=== PATIENT | female | born 1950 | race Caucasian/White ===

== ENCOUNTER → 2018-01-16 08:59 | Outpatient (CLI) | payer MEDICARE, BC, SELFPAY ==
--- NOTE | 2018-01-16 | DI.CT.S_ITS ---
PROCEDURE: CT CHEST ABD PEL W CON INDICATIONS: SURVEILLENCE COLORECTAL CANCER TECHNIQUE: After the administration of oral and intravenous contrast, 5 mm thick sections acquired from the lung apices to the symphysis. 5 mm coronal and sagittal reformats were performed, with additional 7 mm coronal MIP reformats through the lungs. For radiation dose reduction, the following was used: automated exposure control, adjustment of mA and/or kV according to patient size. COMPARISON: [facility], CT, CHEST/ABD/PEL WITH CONTRAST, 03/09/2013, 10:42. [facility], CT, ABDOMEN/PELVIS WITH CONTRAST, 12/11/2013, 11:21. [facility], CT, CHEST/ABD/PEL WITH CONTRAST, 10/18/2016, 10:35. [facility], CT, ABDOMEN/PELVIS WITH CONTRAST, 11/05/2015, 10:43. FINDINGS: Image quality: Excellent. CHEST: Lungs and pleura: Elevation the right hemidiaphragm is seen. No acute airspace opacities. No pleural effusions or pneumothorax. Central and peripheral airways appear patent and normal in caliber. Mediastinum: Heart size is normal. No pericardial effusion. No mediastinal or hilar adenopathy by size criteria. Thoracic aorta and central pulmonary arteries are normal in size. Esophagus is normal in caliber. No hiatal hernia. Chest wall: No axillary or supraclavicular adenopathy by size criteria. A chronic right rib deformity can again be seen. Thyroid gland is not well-seen. ABDOMEN: Solid organs: Liver is normal in size and enhancement. Gallbladder demonstrates no significant CT abnormality. Biliary system is non dilated. Pancreas enhances normally. Spleen is normal in size and enhancement. No adrenal nodules. Kidneys demonstrate normal size and enhancement, without hydronephrosis. Peritoneum and bowel: There is a rectal anastomotic staple line seen. No findings of local recurrence are seen. Bowel loops demonstrate normal wall thickness and caliber. No free fluid or air. Right lower quadrant postoperative clips are seen, which are attributed to prior appendectomy. A duodenal diverticulum can again be seen, as on series 4 image 35. Nodes and vessels: No retroperitoneal or mesenteric adenopathy by size criteria. Aorta and inferior vena cava are normal in size. Miscellaneous: No ventral hernias. PELVIS: Genitourinary: Bladder wall thickness is normal. This patient is status post hysterectomy. No adnexal masses are seen. Miscellaneous: No inguinal hernias or adenopathy. Bones: No suspicious bony lesions. No vertebral body compression fractures. Age-appropriate bony degenerative changes are seen, particularly affecting the lumbar spine. Mild levoconvex scoliotic curvature is noted. IMPRESSION: Rectal postoperative change, without findings of local recurrence. No findings of metastatic disease are detected. Incidental note is made of: Chronic right rib abnormality Elevation of the right hemidiaphragm Duodenal diverticulum Presumed prior appendectomy Hysterectomy Levoconvex scoliotic curvature Dictated by: Evan Ambriz M.D. on 01/16/2018 at 11:03 Approved by: Evan Ambriz M.D. on 01/16/2018 at 11:10
[2018-01-16 09:36] LABS: Add Manual Diff / Slide Review NO; Basophils Percent Auto 0.7 % (0-2); Eosinophils Percent Auto 3.3 % (2-4); Hematocrit 42.2 % (36-46); Hemoglobin 14.2 g/dL (12.0-16.0); Lymphocytes Percent Auto 25.6 % (25-40); Mean Corpuscular HGB Conc 33.7 % (30-36); Mean Corpuscular Hemoglobin 30.9 PG (26-34); Mean Corpuscular Volume 91.7 fL (80-100); Monocytes Percent Auto 11.9 % (3-14); Neutrophils Absolute Auto 1900 /uL (3000-5900); Neutrophils Percent Auto 58.5 % (50-75); Platelet Count 211 X10^3/uL (150-400); Red Cell Distribution Width 14.3 % (11.6-14.8); White Blood Cell Count 3.2 X10^3/uL (4.5-11.0)
[2018-01-16 09:47] LABS: Alanine Aminotransferase 22 IU/L (9-52); Albumin Globulin Ratio 1.6 (1.0-2.8); Alkaline Phosphatase 46 U/L (38-126); Aspartate Aminotransferase 22 IU/L (14-36); Bilirubin Total 0.6 mg/dL (0.2-1.3); Blood Urea Nitrogen 14 mg/dL (7-17); Calcium 8.8 mg/dL (8.4-10.2); Carbon Dioxide 32 mmol/L (22-32); Chloride 103 mmol/L (98-107); Estimated Glomerular Filt Rate > 60.0 mL/min (>60); Globulin 2.5 g/dL (1.7-4.1); Glucose 99 mg/dL (80-110); HEMOLYSIS < 15 (0-50); Sodium 141 mmol/L (137-145); Total Protein 6.5 g/dL (6.3-8.2)
[2018-01-16 10:18] LABS: Carcinoembryonic Antigen 0.4 ng/mL (0.1-3.0)
== END ==
PROVIDERS: Family Provider Family Medicine; PCP Family Medicine; Visit Provider Specialist
DX: C19 Malignant neoplasm of rectosigmoid junction (principal)
CPT/HCPCS: 36415; 71260; 74177; 80053; 82378; 85025; Q9967

== ENCOUNTER → 2018-07-03 09:49 | Outpatient (CLI) | payer MEDICARE, BC, SELFPAY ==
--- NOTE | 2018-07-03 09:51 | DI.US.S_ITS ---
ULTRASOUND OF LEFT BREAST: 07/03/2018 CLINICAL: Patient returns today to evaluate a density in the left breast. Comparison is made to exams dated: 07/03/2018 mammogram, 09/12/2014 mammogram, 02/07/2007 mammogram, and 07/16/2004 mammogram - [facility]. Color flow and real-time ultrasound of the left breast were performed. [place] scale images of the real-time examination were reviewed. Corresponding to palpable area of concern, there is a 2.9 cm x 2 cm x 2.7 cm taller than wide irregular mass with an indistinct margin in the left breast at 5 o'clock middle depth 8 cm from the nipple. This irregular mass is hypoechoic with an echogenic boundary and posterior acoustic shadowing. Color flow imaging demonstrates that there is vascularity present. No abnormalities were seen sonographically in the left axilla IMPRESSION: HIGHLY SUGGESTIVE OF MALIGNANCY The 2.9 cm x 2 cm x 2.7 cm taller than wide irregular mass in the left breast is highly suggestive of malignancy. A biopsy is recommended. Findings and need for biopsy were discussed with the patient by Dr. Rosen. This exam was interpreted at Station ID: [id number]. Electronically Signed By: Tony Del Toro M.D. aty/:07/04/2018 10:00:02 letter sent: Biopsy Required Ultrasound BI-RADS: 5 Highly suggestive of malignancy
--- NOTE | 2018-07-03 09:51 | DI.MG.S_ITS ---
BILATERAL DIGITAL DIAGNOSTIC MAMMOGRAM 3D/2D: 07/03/2018 CLINICAL: Left breast mass. Comparison is made to exams dated: 09/12/2014 mammogram, 02/07/2007 mammogram, and 07/16/2004 mammogram - [facility]. The tissue of both breasts is predominantly fatty. There is a new 2.4 cm irregular equal density mass with an indistinct margin in the left breast at 5 o'clock middle depth 7 cm from the nipple. This correlates as palpated. There is architectural distortion associated with the mass. No other significant masses, calcifications, or other findings are seen in either breast. IMPRESSION: INCOMPLETE: NEEDS ADDITIONAL IMAGING EVALUATION The new 2.4 cm irregular equal density mass in the left breast is indeterminate. An ultrasound is recommended which is scheduled to immediately follow this examination. This exam was interpreted at Station ID: [id number]. NOTE: For mammograms, a report in lay terms will be sent to the patient. Approximately 15% of breast malignancies will not be visualized mammographically. In the management of a palpable breast mass, a negative mammogram must not discourage biopsy of a clinically suspicious lesion. Electronically Signed By: Tony Del Toro M.D. aty/:07/03/2018 10:47:01 ACR BI-RADS Category 0: Incomplete [id number]
== END ==
PROVIDERS: PCP Family Medicine; Visit Provider Nurse Practitioner Gerontology
DX: R92.8 Other abnormal and inconclusive findings on diagnostic imaging of breast (principal); N63.23 Unspecified lump in the left breast, lower outer quadrant
CPT/HCPCS: 76642; 77066; G0279

== ENCOUNTER → 2018-07-07 13:05 | Outpatient (CLI) | payer MEDICARE, BC, SELFPAY ==
--- NOTE | 2018-07-07 | PATH_ITS ---
[facility] Accession Number: [id number] . 01 Material submitted: . breast - LEFT BREAST . 01 Clinical history: . MASS 3 O'CLOCK 8CM FROM NIPPLE . 02 Diagnosis: Left Breast, Mass 3 o'clock 8 cm from Nipple, Core Needle Biopsies: Invasive ductal carcinoma with the following features: 1. Luisa grade: 2 (poor tubule formation-3, intermediate nuclear pleomorphism-2, intermediate mitotic rate-2). 2. Greatest linear extent: 10 mm. 3. Ductal carcinoma in situ: Focally present, low nuclear grade, solid pattern, without necrosis. 4. Microcalcifications: Not identified. 5. Lymphovascular invasion: Not identified. 6. Prognostic markers: Estrogen receptor: Strongly positive, 100% of cells. Progesterone receptor: Strongly positive, 20% of cells. HER2: Negative (score 1+). [facility] 07/11/2018 1512 Local . 02 Comment: As part of routine quality management nurse, this case was also reviewed by Dr. Godoy and Dr. Bates, who agree with the diagnosis. Dr. Bates called the triage nurse to discuss the results on 07/10/2018 at approximately 11:30 a.m. . . 02 Electronically signed: . Yolanda Vega MD, Pathologist NPI- [id number] . 01 Gross description: . The specimen is received in a formalin-filled container and designated breast core. Sample collection date is listed as 07/07/2018 per container. Collection time is 14:30. The sample is received with a plastic filter. The sample is loose in the container. The specimen consists of multiple fragments of skinner, soft tissue and hemorrhagic material measuring 1.3 x 0.6 x 0.3 cm in aggregate. Total fixation time is 24-48 hours. (MR:[id number]) /FRR 07/08/2018 1251 Local . 02 Microscopic: . Immunohistochemical stains were performed to characterize the cells of interest. All control stains showed appropriate reactivity. . RESULTS: GATA3: Uniformly positive. E-cadherin: Uniformly positive. Estrogen Receptor (SP1) Status: Strongly positive, 100% of cells. Progesterone Receptor (1E2) Status: Strongly positive, 20% of cells. HER2 (4B5): Negative (Score 1+). . Cold Ischemia and Fixation Times: Meets requirements in the latest version of the ASCO/CAP guidelines. Testing performed on Block Number: A1. . TECHNICAL NOTE: The scoring criteria for breast biomarkers by immunohistochemistry is based on the current ASCO/CAP guidelines (Marisol et al, Arch Pathol Lab Med 2010: 134(6): 907-922 / Linda Louise, Arch Pathol Lab Med 2014: 138(2):241-256). Deparaffinized sections of formalin fixed tissue (along with appropriate positive controls) are incubated with the above antibody(s). Using the automated Reese stainer, tissue is incubated with the designated antibody* which is then localized by a non-biotin, dual polymer detection system. The external controls are reviewed for appropriate reactivity and found to be adequate. Results on the target cell population are indicated above. These tests have not been validated on decalcified tissue. * This test was developed and its performance characteristics determined by [employer]. It has not been cleared or approved by the U.S. Food and Drug Administration. The FDA has determined that such clearance or approval is not necessary. This test is used for clinical purposes. It should not be regarded as investigational or for research. . 02 Pathologist provided ICD-10: C50.912 . 02 CPT . 247990, P84355, D66976 Performed at: 01 [facility] [address], [place], [place] [id number] MD Stanislaw Ovalles MD Phone: [phone] Performed at: 02 [facility] [address] [place], [place] [id number] MD Yolanda Vega MD Phone: [phone]
--- NOTE | 2018-07-07 | DI.MG.S_ITS ---
UNILATERAL LEFT DIGITAL DIAGNOSTIC MAMMOGRAM: 07/07/2018 CLINICAL: Left breast mass. Post clip placement. Comparison is made to exams dated: 07/03/2018 mammogram, 09/12/2014 mammogram, and 02/07/2007 mammogram - [facility]. The tissue of left breast is predominantly fatty. There is a marker clip in the appropriate position in the left breast at 3 o'clock middle depth 8 cm from the nipple. There is a biopsy clip associated with the mass. IMPRESSION: POST PROCEDURE MAMMOGRAM FOR MARKER PLACEMENT There was a successful marker clip placement in the left breast middle depth. Follow-up with ACR/ACS guidelines. This exam was interpreted at Station ID: [id number]. NOTE: For mammograms, a report in lay terms will be sent to the patient. Approximately 15% of breast malignancies will not be visualized mammographically. In the management of a palpable breast mass, a negative mammogram must not discourage biopsy of a clinically suspicious lesion. Electronically Signed By: Tony voss/laurence:07/07/2018 18:37:42 ACR BI-RADS Category Post-procedure mammogram for marker placement
--- NOTE | 2018-07-07 13:08 | DI.US.S_ITS ---
ULTRASOUND GUIDED BIOPSY LEFT BREAST USING VACUUM DEVICE WITH MARKING DEVICE INSERTED AND POST DIGITAL MAMMOGRAPHIC IMAGIN07/07/2018 CLINICAL: Left breast mass. PATIENT CONSENT: Risks (minor bleeding, infection, vasovagal reaction and repeat procedure), benefits and alternatives were explained to the patient and written informed consent was obtained. Correlation is made to exams dated: 07/03/2018 ultrasound, 07/03/2018 mammogram, and 09/12/2014 mammogram - [facility]. An ultrasound guided biopsy using real-time ultrasound was performed for the palpable 2.9 cm x 2 cm x 2.7 cm indistinct irregular shaped mass located in the left breast at 3 o'clock middle depth 8 cm from the nipple. The skin was prepped in the usual manner. A 13 gauge biopsy needle was placed adjacent to the abnormality under ultrasound guidance. Once the needle was documented to be in the correct location, five specimens were obtained using the Mammotome biopsy system. A clip was inserted into the biopsy cavity. Post procedure digital mammographic imaging demonstrates the location device at the targeted area. The specimens were sent to the laboratory for pathological analysis. IMPRESSION: ULTRASOUND GUIDED BIOPSY MALIGNANT Ultrasound guided biopsy of the 2.9 cm x 2 cm x 2.7 cm mass in the left breast at 3 o'clock middle depth 8 cm from the nipple was successful. Pathology indicates malignant invasive ductal carcinoma (ID). Pathology results are concordant with imaging findings. This exam was interpreted at Station ID: [id number]. ev Del Cid M.D., M.D./laurence:07/14/2018 10:14:37
== END ==
PROVIDERS: PCP Family Medicine; Visit Provider Nurse Practitioner Gerontology
DX: C50.812 Malignant neoplasm of overlapping sites of left female breast (principal); Z17.0 Estrogen receptor positive status [ER+]
CPT/HCPCS: 19083; 77065; 88305; 88341; 88342

== ENCOUNTER → 2018-08-01 08:07 | Outpatient (CLI) | payer MEDICARE, BC, SELFPAY ==
--- NOTE | 2018-08-01 08:10 | DI.MRI.S_ITS ---
BREAST MRI OF THE LEFT BREAST: 08/01/2018 CLINICAL: Breast cancer. TECHNIQUE: The patient was placed prone in a dedicated breast imaging coil. Precontrast axial STIR and 3D FLASH without fat saturation sequences were obtained. Both before and after bolus injection of contrast, sequential 1-minute axial 3D FLASH with fat saturation sequences for 3 time points, with subtraction images and maximum intensity projections (MIP's) generated. Delayed sagittal FLASH images with fat saturation were also obtained. Computer-aided detection, including computer algorithm analysis of MRI image data for lesion detection and characterization, pharmacokinetic analysis, with further physician review for interpretation, was performed. COMPARISON: Mammograms dated 07/03/2018 and 07/07/2018, and ultrasound dated 07/03/2018. FINDINGS: Image quality: Excellent. There is minimal background parenchymal enhancement. Right breast: The right breast is without suspicious mass, architectural distortion, or non-mass enhancement. No right-sided axillary or internal mammary chain adenopathy. Left breast: Within the left lower outer quadrant at approximately the 3:00-4:00 axis and 7 cm behind the nipple, there is an irregular 3.6 x 3.0 x 2.7 cm mass that correlates with biopsy proven invasive ductal carcinoma. A biopsy marker with associated susceptibility artifact is noted within this mass. There is associated enhancement with type III (washout) kinetics. No other mass lesions identified in the left breast. No suspicious architectural distortion or non-mass enhancement. No left-sided axillary or internal mammary chain adenopathy. Miscellaneous: Visualized portions of the anterior mediastinum, heart, chest, upper abdomen, and lower neck appear unremarkable. IMPRESSION: KNOWN BIOPSY PROVEN MALIGNANCY 1. An enhancing 3.6 cm irregular mass in the lower, outer quadrant of the left breast consistent with biopsy proven malignancy. No other suspicious mass lesions or non-mass enhancement in the left breast. No left-sided axillary or internal mammary adenopathy. 2. No MRI evidence for malignancy in the right breast. No right-sided axillary or internal mammary adenopathy. This exam was interpreted at Station ID: [id number]. Electronically Signed By: Tony Del Toro M.D. aty/:08/01/2018 14:45:37 ACR BI-RADS Category 6: Known biopsy proven malignancy [id number]
== END ==
PROVIDERS: Family Provider Psychiatry & Neurology Psychiatry; PCP Family Medicine; Visit Provider Surgery
DX: C50.512 Malignant neoplasm of lower-outer quadrant of left female breast (principal)
CPT/HCPCS: 77049; A9579

== ENCOUNTER 2018-08-09 06:49 | Day surgery (SDC) | payer MEDICARE, BC, SELFPAY ==
[2018-08-07 11:41] VITALS: BMI 35.7
[2018-08-09] VITALS (10 sets, daily range): BP systolic 113–146; BP diastolic 57–92; PULSE 58–76; RESP 13–21; TEMP 36.2–36.7; O2SAT 94–98; BMI 35.6
--- NOTE | 2018-08-09 | DI.MG.S_ITS ---
UNILATERAL LEFT DIGITAL DIAGNOSTIC MAMMOGRAM POST-NEEDLE BIOPSY: 08/09/2018 CLINICAL: Post wire localization. Comparison is made to exams dated: 07/07/2018 mammogram, 07/03/2018 mammogram, and 09/12/2014 mammogram - [facility]. The tissue of left breast is predominantly fatty. There is a marker clip in the appropriate position in the left breast at 3 o'clock middle depth, and also an adjacent J hook wire placed in the mass by US guidance today. This correlates as palpated and with ultrasound findings. There is a biopsy clip associated with the mass. IMPRESSION: POST PROCEDURE MAMMOGRAM FOR MARKER PLACEMENT There was a successful wire localization placement in the left breast middle depth. This exam was interpreted at Station ID: [id number]. NOTE: For mammograms, a report in lay terms will be sent to the patient. Approximately 15% of breast malignancies will not be visualized mammographically. In the management of a palpable breast mass, a negative mammogram must not discourage biopsy of a clinically suspicious lesion. Electronically Signed By: Matty Rosen M.D. [facility]/:08/09/2018 17:12:10 ACR BI-RADS Category Post-procedure mammogram for marker placement
--- NOTE | 2018-08-09 | DI.MG.S_ITS ---
SPECIMEN: 08/09/2018 CLINICAL: Left breast specimen. Correlation is made to exams dated: 08/01/2018 breast MRI, 08/09/2018 localization, 08/09/2018 mammogram, 07/07/2018 ultrasound biopsy, and 07/07/2018 mammogram - [facility]. The specimen contains the targeted irregular spiculated mass with internal biopsy clip, as well as the partially imaged localizing wire. Spiculations extend to the margins of the specimen. IMPRESSION: SPECIMEN The specimen contains the targeted irregular spiculated mass with internal biopsy clip, as well as the partially imaged localizing wire. Spiculations extend to the margins of the specimen. This exam was interpreted at Station ID: [id number]. Esau Zuniga M.D. ecl/:08/09/2018 14:27:59
--- NOTE | 2018-08-09 | PATH_ITS ---
[facility] Accession Number: [id number] . 01 Material submitted: . PART A: LEFT BREAST SENTINEL NODE PART B: LEFT BREAST MASS AND LEFT AXILLARY TISSUE . 02 Diagnosis: A. Left Breast, [place] Lymph Node, Excision: One sentinel lymph node positive for isolated tumor cells. Please see CAP summary data below. . B Left Breast, Mass and Left Axillary Tissue, Excision: Invasive ductal carcinoma. One of two non-sentinel lymph nodes positive for isolated tumor cells. Please see CAP summary data below. . CAP CANCER CASE SUMMARY, INVASIVE CARCINOMA OF THE BREAST. . Procedure: Excision Specimen Laterality: Left . Tumor Site: 3 o'clock Tumor Size: 39 mm. (See comment). Histologic Type: Invasive carcinoma of no special type (ductal, not otherwise specified). Histologic Grade: Glandular/Tubular Differentiation: Score 3. Nuclear Pleomorphism: Score 2. Mitotic Rate: Score 3. Overall Grade: Grade 3. Tumor Focality: Single focus of invasive carcinoma. . Ductal Carcinoma In Situ: Present, negative for extensive intraductal component. Size of DCIS: Estimated Size: at least 8 mm. Architectural Pattern: Cribriform and solid. Nuclear Grade: Grade 2 (intermediate). Necrosis: Present, focal. Lobular Carcinoma In Situ: No LCIS in specimen. Tumor Extension: Skin: Not applicable. Nipple: Not applicable. Skeletal Muscle: Not applicable. . Margins: Invasive Carcinoma Margins: Uninvolved by invasive carcinoma. Distance from Closest Margin: 3 mm. Specified Closest Margin: Posterior. DCIS: Margins: Uninvolved by DCIS. Distance from Closest Margin: 6 mm. Specified Closest Margin: Posterior. . Regional Lymph Nodes: Involved by tumor cells. Number of Lymph Nodes with Macrometastasis: 0. Number of Lymph Nodes with Micrometastasis: 0. Number of Lymph Nodes with Isolated Tumor Cells: 2. Size of Largest Metastatic Deposit: Less than 0.2 mm. Extranodal Extension: Not identified. Number of Lymph Nodes Examined: 3. Number of [place] Nodes Examined: 1. . Treatment Effect: No known presurgical therapy. Lymphovascular Invasion: Not identified. Dermal Lymphovascular Invasion: No skin present. . Pathologic Stage Classification: Primary Tumor: pT2 Regional Lymph Nodes: pN0 (i+) (sn) . Additional Pathologic Findings: Fibrocystic changes. . Ancillary Studies: Performed previously on case [id number]. Estrogen Receptor (SP1): Strongly positive, 100% of cells. Progesterone Receptor (1E2): Strongly positive, 20% of cells. HER-2 (4B5): Negative (Score 1+). . Microcalcifications: Present in non-neoplastic tissue. [facility]08/16/2018 . 02 Comment: The greatest dimension of the largest invasive focus is based on involvement of 13 contiguous tissue slices, 3 mm in each in thickness. The isolated tumor cells are identified in one sentinel lymph node and one of two non-sentinel lymph nodes. . 02 Electronically signed: . Yolanda Vega MD, Pathologist NPI- [id number] . 01 Gross description: . (A) Received in formalin, labeled sentinel node, is a lymph node (1.4 x 0.8 x 0.5 cm). Serially sectioned and entirely submitted in cassettes A1-A2. (B) Received in formalin, labeled L breast, dbl stitch anterior, wire inferior, long lateral, plus extra L axillary tissue. . Specimen #1: Left partial mastectomy. Weight: 122 grams. Measurement: 4.0 cm anterior to posterior, 5.6 cm medial to lateral, and 9.2 cm superior to inferior. Skin Ellipse: Absent. Wire: Present, penetrating at the anterior medial inferior aspect and terminating in the center of the specimen. Margins: Oriented with double anterior suture, long lateral suture, and inferior localization wire, and inked as follows: posterior=black; anterior=purple; superior=blue; inferior=green; medial=yellow; lateral=orange. Slice: Superior to inferior into nineteen slices. Lesion: One. Description: Bustamante-white, firm, lobulated mass. Size: 3.4 x 3.0 x 2.6 cm. Slices Involved: Slices # 4-15. Biopsy Site: A biopsy clip is present in slice #15. The localization wire ends adjacent to the biopsy marker within slice #15. Distance to Margins: 0.8 cm from the anterior, 0.1 cm from the posterior, 1.4 cm from the superior, 1.6 cm from the inferior, 0.6 cm from the medial, and 1.6 cm from the lateral resection margins. Other: The remaining cut surface are fatty and unremarkable. Fixation Time: The specimen was placed in formalin on 08/11/2018 with no time given. The total fixation time is approximately 58 hours and 30 minutes. Sections: B1: Steward/Stewardess Bath superior end of specimen, perpendicular. B2-B4: Slice 3, slice superior to mass, trisected and entirely submitted anterior to posterior. B5: Slice 4, mass, patient services representative. B6: Slice 5, mass with lateral margin. B7: Slice 6, mass with anterior and lateral margin. B8: Slice 7, mass with lateral and posterior margin. B9: Slice 9, mass with posterior margin. B10: Slice 10, mass with anterior margin. B11-B16: Slice 11, trisected and entirely submitted medial to lateral and then each slice is bisected and submitted anterior to posterior. B17: Slice 12, mass with posterior margin. B18: Slice 13, mass with anterior margin. B19: Slice 14, mass with lateral margin. B20: Slice 15, mass with anterior margin, tissue involving the biopsy clip and terminal end of the localization wire. B21-B28: Slice 16, tissue inferior to mass, serially sectioned and entirely submitted medial to lateral with each slice then submitted anterior to posterior. B29: Slice 19, patient services representative inferior end of specimen, perpendicular. . Specimen #2 consists of multiple pieces of bustamante-yellow rubbery adipose tissue (4.8 x 4.0 x 1.2 cm in aggregate) containing two possible lymph nodes (0.4 x 0.2 x 0.2 cm and 0.6 x 0.5 x 0.3 cm), which are submitted intact in cassette B30. ([id number]) . B31-B36: Slice 17, entirely submitted. (STACI) /[facility] . 02 Microscopic: . Immunohistochemical stains were performed on blocks containing lymph node tissue in order to evaluate for metastatic carcinoma. The control stain showed appropriate reactivity. . Block A1 YESSI: Negative. . Block A2 YESSI: Positive for isolated tumor cells. . Block B30 YESSI: Positive for isolated tumor cells. . . * This test was developed and its performance characteristics determined by [facility]. It has not been cleared or approved by the U.S. Food and Drug Administration. The FDA has determined that such clearance or approval is not necessary. This test is used for clinical purposes. It should not be regarded as investigational or for research. . 02 Pathologist provided ICD-10: C50.912 . 02 CPT . 805849, 018680, W56214 Performed at: 01 [facility] [address] [place] [address], [place], [place] [id number] MD Stanislaw Ovalles MD Phone: [phone] Performed at: 02 [facility] [address] [place] [id number] MD Yolanda Vega MD Phone: [phone]
--- NOTE | 2018-08-09 06:53 | DI.US.S_ITS ---
ULTRASOUND GUIDED WIRE LOCALIZATION LEFT BREAST WITH POST MAMMOGRAPHIC IMAGING AND RADIOGRAPHIC SPECIMEN IMAGIN08/09/2018 CLINICAL: Left breast ultrasound guided pre-op wire localization. Correlation is made to exams dated: 08/09/2018 mammogram, 08/01/2018 breast MRI, 07/07/2018 ultrasound biopsy, 07/07/2018 mammogram, 07/03/2018 ultrasound, and 07/03/2018 mammogram - [facility]. A wire localization using ultrasound guidance was performed for the concerning palpable 2 cm x 2.9 cm x 2.7 cm indistinct irregular shaped solid mass located in the left breast at 3 o'clock middle depth. This was described on the previous mammography and ultrasound reports. The skin was prepped in the usual manner. Local anesthetic was administered to the access site. The localization was approached from the lateral aspect. A J-hook wire was inserted into the targeted area under ultrasound guidance. Post placement mammographic imaging demonstrates the tip rests in the targeted area. IMPRESSION: WIRE LOCALIZATION Wire localization for the 2 cm x 2.9 cm x 2.7 cm solid mass in the left breast at 3 o'clock middle depth was successful. A specimen radiograph was obtained. The imaged specimen includes the mass, a biopsy clip, and the distal portion of the localization wire. This exam was interpreted at Station ID: [id number]. Matty Rosen M.D. [facility]/:08/09/2018 17:07:14
--- NOTE | 2018-08-09 06:53 | DI.NM.S_ITS ---
PROCEDURE: NM SENTINEL NODE W IMAGING RADIOPHARMACEUTICAL: 0.5-1.0 mCi Millipore filtered Tc-99m sulfur colloid. INDICATIONS: mass on left breast TECHNIQUE: The area around the nipple was prepped and draped in a sterile fashion. Tc-99m sulfur colloid was injected intra-dermally in the outer edge of the areola in the left breast. Images were obtained subsequently. A body contour outline was obtained. FINDINGS: There is a single initially identified lymph node in the ipsilateral axilla, which is marked on the skin and the images for referring physician. A second very subtle lymph node more superiorly and medially from the sentinel node also is tagged. IMPRESSION: Administration of radiotracer into the right, left breast periareolar region for intra-operative sentinel lymph node localization. A single dominant sentinel lymph node is identified and a subtle additional more superior medial lymph node can be seen nearby. Dictated by: Matty Rosen M.D. on 08/09/2018 at 10:08 Approved by: Matty Rosen M.D. on 08/09/2018 at 10:10
--- NOTE | 2018-08-09 10:01 | SUR.PREOP ---
Pt returned from radiology in stable condition. pt used restroom and then settled back into bed. bed in lowest position and call light given to pt. pt family brought to bedside. pt appears comfortable at this time.
[2018-08-09] MEDS: LACTATED RINGERS 1,000 ML 42 ML IV ×2 (10:56→13:30)
--- NOTE | 2018-08-09 11:05 | PM.PREOP ---
Pre-operative Note Interval Note History & Physical reviewed/Exam performed by Physician: Yes Changes to H&P: No
[2018-08-09] MEDS: CEFAZOLIN 2 GM/100 ML FROZ.PIGGY IV (11:09)
--- NOTE | 2018-08-09 11:46 | SUR.OPER ---
Supine on padded OR bed, head on pillow, arms secured on padded arm boards at <90 degrees abduction, legs uncrossed, safety belt at thigh, tape over blanket over lower legs.
[2018-08-09] MEDS: BUPIVACAINE 0.5% (PF) VIAL 30 ML INJ (11:59)
[2018-08-09] MEDS: LIDOCAINE 1% W/EPI INJ 20 ML INJ (12:00)
--- NOTE | 2018-08-09 13:02 | PM.OP.1 ---
Operative Date/Time/Diagnoses Date of procedure: 08/09/18 Time of procedure: 13:03 Pre-op diagnosis: Left Breast Cancer Post-op diagnosis: same Procedure & Clinicians Procedure: Left Breast Lumpectomy and [place] Node Biopsy Same procedure as scheduled: Yes Indications: Left Breast Cancer Surgeon: Erika De La Cruz Click Yes if Unassisted: Yes Anesthesia Type: General (Dr Calix) Operative Notes Findings: Lump clip and wire all contained within the specimen Closure Type: primary Specimen(s): other (Left breast lump, Left sentinel node with 10 [place] [address]) Estimated Blood Loss (mL): 50 Blood products transfused: none Procedure in detail: After obtaining informed consent, the patient was brought to the operating room and placed in the supine position on the operating table. Following successful induction of general endotracheal anesthesia, appropriate padding of all bony prominences, and placement of appropriate monitors, the left breast and axilla were prepped and draped in a standard surgical fashion. A timeout was held per SCOAP protocol. Following injection of mixture of local anesthetics into the axillary fold on the left side, an incision was created and carried down through the skin and subcutaneous tissue to enter the axillary fat pad below. The neoprobe was used to identify the sentinel node. This was done by identifying a tiny node in level I of the axillary packet. The node itself [place] 1 [place] [address] in a background of less than 10. It was also noted to be dark blue in color. The node was carefully liberated from the remainder of the axillary packet being sure not to compromise any of the other lymphatic structures. All afferent and efferent lymphatics and vasculature were addressed with hemoclips prior to division. The wound was checked for hemostasis and irrigated with warm water. It was closed in 2 layers with Vicryl and Monocryl suture. We continued with lumpectomy on the left side. A curvilinear incision was created to include the wire on the left side. Using traction and counter-traction, the mass and localizing wire carefully dissected free from the overlying skin, underlying muscle, and surrounding breast tissue. The mass was delivered into the field and marked appropriately. It was sent for specimen x-ray. The wound was checked for hemostasis and irrigated with water. The radiologist called back into the room noting that the specimen x-ray contained the wire clip and mass. The wound was checked once again for hemostasis. It was irrigated copiously with warm water and aspirated free of all fluid. The wound was checked once again for hemostasis and then closed in 2 layers with Vicryl Monocryl suture. Dermabond was applied to the skin incisions. Fluffs and a breast binder were applied. The patient tolerated the procedure very well. She was allowed awaken from anesthesia and taken to the post-anesthesia care unit in good condition. Complications: none Condition: stable Disposition: PACU Plan for aftercare: Discharge to home. Follow up with me in my office in 2 weeks
--- NOTE | 2018-08-09 13:05 | P.OP_ITS ---
Operative Date/Time/Diagnoses Date of procedure: 08/09/18 Time of procedure: 13:03 Pre-op diagnosis: Left Breast Cancer Post-op diagnosis: same Procedure & Clinicians Procedure: Left Breast Lumpectomy and [place] Node Biopsy Same procedure as scheduled: Yes Indications: Left Breast Cancer Surgeon: Erika De La Cruz Click Yes if Unassisted: Yes Anesthesia Type: General (Dr Calix) Operative Notes Findings: Lump clip and wire all contained within the specimen Closure Type: primary Specimen(s): other (Left breast lump, Left sentinel node [place] 10 [place] [address]) Estimated Blood Loss (mL): 50 Blood products transfused: none Procedure in detail: After obtaining informed consent, the patient was brought to the operating room and placed in the supine position on the operating table. Following successful induction of general endotracheal anesthesia, appropriate padding of all bony prominences, and placement of appropriate monitors, the left breast and axilla were prepped and draped in a standard surgical fashion. A timeout was held per SCOAP protocol. Following injection of mixture of local anesthetics into the axillary fold on the left side, an incision was created and carried down through the skin and subcutaneous tissue to enter the axillary fat pad below. The neoprobe was used to identify the sentinel node. This was done by identifying a tiny node in level I of the axillary packet. The node itself had a 1 second count of a pproximately 96113 in a background of less than 10. It was also noted to be dark blue in color. The node was carefully liberated from the remainder of the axillary packet being sure not to compromise any of the other lymphatic structures. All afferent and efferent lymphatics and vasculature were addressed with hemoclips prior to division. The wound was checked for hemostasis and irrigated with warm water. It was closed in 2 layers with Vicryl and Monocryl suture. We continued with lumpectomy on the left side. A curvilinear incision was created to include the wire on the left side. Using traction and counter- traction, the mass and localizing wire carefully dissected free from the overlying skin, underlying muscle, and surrounding breast tissue. The mass was delivered into the field and marked appropriately. It was sent for specimen x- ray. The wound was checked for hemostasis and irrigated with water. The radiologist called back into the room noting that the specimen x-ray contained the wire clip and mass. The wound was checked once again for hemostasis. It was irrigated copiously with warm water and aspirated free of all fluid. The wound was checked once again for hemostasis and then closed in 2 layers with Vicryl Monocryl suture. Dermabond was applied to the skin incisions. Fluffs and a breast binder were applied. The patient tolerated the procedure very well. She was allowed awaken from anesthesia and taken to the post-anesthesia care unit in good condition. Complications: none Condition: stable Disposition: PACU Plan for aftercare: Discharge to home. Follow up with me in my office in 2 weeks
[2018-08-09] MEDS: METOCLOPRAMIDE 10 MG/2 ML INJ IV (13:08)
[2018-08-09] MEDS: HYDROMORPHONE 2 MG INJ 0.25 MG IV (13:20)
--- NOTE | 2018-08-09 13:31 | SUR.PHASEI ---
Pt had nausea treated with reglan and queeze ease, cool washcloth to head, slowly resolving. pt c/o 6/10 pain to l breast and l arm treated with dilaudid.
[2018-08-09] MEDS: ONDANSETRON 4 MG/2 ML INJ IV (13:37)
--- NOTE | 2018-08-09 13:45 | SUR.PHASEI ---
Pt still with slight queasiness, treated with gingerale, mints and saltine crackers...If I could just get this bad taste out of my mouth I think that would help my nausea.
== END 2018-08-09 15:00 | disposition home or self-care (01) ==
PROVIDERS: Family Provider Psychiatry & Neurology Psychiatry; PCP Family Medicine; Visit Provider Surgery
PROC: (CPT 19301; principal; 2018-08-09 11:00)
DX: C50.912 Malignant neoplasm of unspecified site of left female breast (principal); Z17.0 Estrogen receptor positive status [ER+]
CPT/HCPCS: 19301; 38500; 19285; 76098; 77065; 78195; A9541; J0690; J1100; J1170; J1885; J2405; J2704; J2765

== ENCOUNTER 2018-09-13 07:43 | Day surgery (SDC) | payer MEDICARE, BC, SELFPAY ==
[2018-09-06 15:12] VITALS: BMI 35.7
[2018-09-13] VITALS (7 sets, daily range): BP systolic 103–125; BP diastolic 46–80; PULSE 56–71; RESP 16–22; TEMP 36.2–36.6; O2SAT 94–97; BMI 35.7
--- NOTE | 2018-09-13 | DI.RAD.S_ITS ---
PROCEDURE: XR CHEST 1V INDICATIONS: POST OPERATIVE PORT TECHNIQUE: One view of the chest was acquired. COMPARISON: [facility], CR, XR CHEST 1V, 09/13/2018, 8:25. FINDINGS: Surgical changes and devices: There is a right-sided Port-A-Cath central line identified with the tip overlying the atriocaval junction. Clips are seen within the left axilla. Lungs and pleura: There are low lung volumes. Elevation of the right diaphragm is present. There is no definite pneumothorax. There may be a trace right-sided pleural effusion. Mediastinum: Mediastinal contours appear normal. Heart size is normal. Bones and chest wall: No suspicious bony lesions. Overlying soft tissues appear unremarkable. IMPRESSION: 1. Right-sided Port-A-Cath central line is positioned at the tip at the atriocaval junction. No pneumothorax. 2. Small right-sided pleural effusion. There may be scarring/atelectasis at the right lung base. Dictated by: Hi Rodriguez M.D. on 09/13/2018 at 9:48 Approved by: Hi Rodriguez M.D. on 09/13/2018 at 10:16
--- NOTE | 2018-09-13 | DI.RAD.S_ITS ---
PROCEDURE: XR CHEST 1V INDICATIONS: INTRA OPERATIVE PORT PLACEMENT TECHNIQUE: One view of the chest was acquired. COMPARISON: [facility], [place], XR CHEST 1V, 09/13/2018, 9:53. [facility], CR, CHEST FOR PICC PLACEMENT, 03/24/2013, 17:05. FINDINGS: Limited study performed for catheter placement. There is a right subclavian line extending into the superior vena cava with the tip not included on the currrent study. IMPRESSION: 1. Right subclavian line extending into the superior vena cava with the tip not included on the current study. Dictated by: Stanislaw Winchester M.D. on 09/13/2018 at 10:35 Approved by: Stanislaw Winchester M.D. on 09/13/2018 at 10:38
[2018-09-13] MEDS: LACTATED RINGERS 1,000 ML 42 ML IV (08:43)
--- NOTE | 2018-09-13 08:52 | SUR.OPER ---
Supine on padded OR bed, head on pillow, arms secured on padded arm boards at <90 degrees abduction, legs uncrossed, safety belt at thigh, tape over blanket over lower legs.
--- NOTE | 2018-09-13 09:05 | PM.PREOP ---
Pre-operative Note Interval Note History & Physical reviewed/Exam performed by Physician: Yes Changes to H&P: Yes H&P completed within 30 days and has changed as indicated here:: Since I last saw Peggy in the office, she has been seen by Oncology and it is determined that she would definitely benefit from intravenous chemotherapy. To that end we have scheduled her for right subclavian power port placement today. We have already discussed the risks and benefits, but it is discussed once again today.
[2018-09-13] MEDS: CEFAZOLIN 2 GM/100 ML FROZ.PIGGY IV (09:10)
[2018-09-13] MEDS: LIDOCAINE 1% W/EPI INJ 20 ML INJ (09:28)
[2018-09-13] MEDS: BUPIVACAINE 0.5% (PF) VIAL 30 ML INJ (09:28)
[2018-09-13] MEDS: SODIUM CHLORIDE 0.9% FLUSH 10 ML IV (09:30)
--- NOTE | 2018-09-13 09:41 | P.OP_ITS ---
Operative Date/Time/Diagnoses Date of procedure: 09/13/18 Time of procedure: 09:39 Pre-op diagnosis: Left breast cancer Post-op diagnosis: same Procedure & Clinicians Procedure: Right subclavian port placement Same procedure as scheduled: Yes Indications: Facilitation of chemotherapy Surgeon: Erika De La Cruz Anesthesia Type: General (Dr. Mckinney) Operative Notes Findings: Power port in good position in the superior vena cava Closure Type: primary Specimen(s): none sent Prosthetic devices, grafts, tissues, transplants, or devices: Low-profile PowerPort Estimated Blood Loss (mL): 5 Procedure in detail: After obtaining informed consent, the patient was brought to the operating room and placed in the supine position on the operating table. Following successful induction of general endotracheal anesthesia, appropriate padding of all bony prominences, and placement of appropriate monitors, the right chest was prepped and draped in a standard surgical fashion. A timeout was held per SCOAP protocol. A mixture of local anesthetics was infiltrated in the deltopectoral groove on the right side. The right subclavian vein was accessed via the Seldinger technique and a wire was gently placed into the vein. Fluoroscopy was used to verify position of the wire in the subclavian vein. We next created a pocket of approximately 2 cm inferior to the access site of the vein. This was checked for size and found to fit the port nicely. The included tunneling device was used to place the tubing and the pocket connecting it to the access site of the subclavian vein. The tubing was trimmed to an appropriate length and connected to the Port-A-Cath. The Port-A-Cath was sewn into place in the pocket using interrupted Prolene sutures. The pocket was closed in 2 layers. The dilator and introducer were then gently passed over the wire and into the subclavian vein. The wire and dilator were removed leaving only the introducer. The tubing was then placed in the introducer and the introducer removed per manager of tires sales's directions. The port was then flushed with saline solution and found to be functional and in good position. It was then hep-locked with 2000 units of heparin. The incision was closed in 2 layers with Vicryl and Monocryl sutures. Dermabond was applied to the skin. All sponge, needle, and instrument counts were correct at the conclusion of the case. Patient was allowed to awaken from anesthesia and taken to the post-anesthesia care unit in good condition. Complications: none Condition: stable Disposition: PACU Plan for aftercare: 1. Discharge to home 2. The port is ready for use
[2018-09-13] MEDS: ACETAMINOPHEN 325 MG TABLET 650 MG PO (10:26)
== END 2018-09-13 10:42 | disposition home or self-care (01) ==
PROVIDERS: Family Provider Psychiatry & Neurology Psychiatry; PCP Family Medicine; Visit Provider Surgery
PROC: (CPT 36561; principal; 2018-09-13 08:45)
DX: C50.912 Malignant neoplasm of unspecified site of left female breast (principal); Z45.2 Encounter for adjustment and management of vascular access device; F41.9 Anxiety disorder, unspecified; J45.909 Unspecified asthma, uncomplicated; E03.9 Hypothyroidism, unspecified; I10 Essential (primary) hypertension
CPT/HCPCS: 36561; 71045; 76000; C1788; J0690; J1100; J1644; J2250; J2405; J2704; J3010

== ENCOUNTER 2019-01-30 10:38 | Day surgery (SDC) | payer MEDICARE, BC, SELFPAY ==
[2019-01-25 12:18] VITALS: BMI 35.7
[2019-01-30 10:49] VITALS: BP 128/75; PULSE 72; RESP 17; TEMP 36.8; O2SAT 96; BMI 32.6
[2019-01-30] MEDS: LACTATED RINGERS 1,000 ML 42 ML IV (11:00)
--- NOTE | 2019-01-30 11:04 | PM.PREOP ---
Pre-operative Note Interval Note History & Physical reviewed/Exam performed by Physician: Yes Changes to H&P: No
[2019-01-30] MEDS: CEFAZOLIN 2 GM/100 ML FROZ.PIGGY IV (11:35)
--- NOTE | 2019-01-30 11:48 | SUR.OPER ---
Supine on padded OR bed, head on pillow, right arm padded and tucked at side, left arm on padded armboard <90 degree abduction, legs uncrossed, safety belt at thigh.
[2019-01-30] MEDS: BUPIVACAINE 0.25% (PF) VIAL 30 ML INJ (11:54)
--- NOTE | 2019-01-30 12:15 | PM.OP.1 ---
Operative Date/Time/Diagnoses Date of procedure: 01/30/19 Time of procedure: 12:15 Pre-op diagnosis: breast cancer Post-op diagnosis: same Procedure & Clinicians Procedure: removal of port a cath Same procedure as scheduled: Yes Indications: 69-year-old female with history of left breast cancer status post chemotherapy radiation. She has completed her adjuvant therapy has been sent by her oncologist for port removal. Surgeon: Joe Childers Click Yes if Unassisted: Yes Anesthesia Type: Sedation Operative Notes Findings: unremarkable Estimated Blood Loss (mL): 5 Procedure in detail: Patient was brought to the operating room placed supine the table. Bilateral lower extremity compression devices were applied. anesthetic sedation was provided. Time-out was performed to ensure the correct patient procedure necessary equipment within the operating room. patient was then prepped and draped in usual sterile fashion. 0.25% bupivacaine was injected through the scar the right chest port a catheter placement site. incision was made through the scar directly over the Port-A-Cath. The incision was carried down through the subcutaneous tissues using electrocautery. The port was grasped. The Prolene sutures were removed. A [id number] was was made around the subclavian vein access site and then this was closed at the same time the port was removed. The wound was found to be hemostatic. The Port-A-Cath was inspected to make sure that it had been removed in its entirety. The wound was irrigated and then reapproximated using 3 0 Vicryl suture for the subcutaneous tissue followed by Monocryl suture for the skin and Dermabond. Patient tolerated procedure well. The sponge instrument count the operation was correct. the estimated blood loss for the operation was 5 mL. Patient emerged from sedation and was taken to the postoperative care unit in stable condition. Complications: none Condition: stable Disposition: same day surgery
[2019-01-30 12:16] VITALS: BP 96/60; PULSE 59; RESP 14; TEMP 35.9; O2SAT 95
== END 2019-01-30 12:31 | disposition home or self-care (01) ==
PROVIDERS: PCP Internal Medicine; Visit Provider Surgery
PROC: (CPT 36590; principal; 2019-01-30 12:15)
DX: Z45.2 Encounter for adjustment and management of vascular access device (principal); C50.912 Malignant neoplasm of unspecified site of left female breast; I10 Essential (primary) hypertension; E66.9 Obesity, unspecified; Z17.0 Estrogen receptor positive status [ER+]
CPT/HCPCS: 36590; J0690; J2250; J2704; J3010

== ENCOUNTER → 2019-02-21 13:12 | Outpatient (CLI) | payer MEDICARE, BC, SELFPAY | PROVIDERS: PCP Internal Medicine | DX: M85.852 Other specified disorders of bone density and structure, left thigh (principal); Z78.0 Asymptomatic menopausal state; C50.919 Malignant neoplasm of unspecified site of unspecified female breast; C20 Malignant neoplasm of rectum; Z90.722 Acquired absence of ovaries, bilateral; Z82.62 Family history of osteoporosis; Z79.811 Long term (current) use of aromatase inhibitors | CPT/HCPCS: 77080 ==

== ENCOUNTER → 2019-07-31 15:51 | Outpatient (CLI) | payer MEDICARE, BC, SELFPAY ==
--- NOTE | 2019-07-31 | DI.MG.S_ITS ---
BILATERAL DIGITAL SCREENING MAMMOGRAM 3D/2D WITH CAD POST LUMPECTOMY: 07/31/2019 CLINICAL: Routine screening. Personal history of left breast cancer. Family history of breast cancer. Comparison is made to exams dated: 07/03/2018 mammogram, 09/12/2014 mammogram, and 02/07/2007 mammogram - [facility]. The tissue of both breasts is predominantly fatty. Current study was also evaluated with a Computer Aided Detection (CAD) system. There are benign post operative findings in the left breast. No significant masses, calcifications, or other findings are seen in either breast. There has been no significant interval change. IMPRESSION: There is no mammographic evidence of malignancy. A 1 year screening mammogram is recommended. This exam was interpreted at Station ID: [id number]. NOTE: For mammograms, a report in lay terms will be sent to the patient. Approximately 15% of breast malignancies will not be visualized mammographically. In the management of a palpable breast mass, a negative mammogram must not discourage biopsy of a clinically suspicious lesion. Electronically Signed By: Cori carreno/laurence:07/31/2019 16:47:08 copy to: SALO NAYAK letter sent: Normal Exam ACR BI-RADS Category 2: Benign Finding(s) 3342F
== END ==
PROVIDERS: PCP Internal Medicine; Referring Provider Internal Medicine Hematology & Oncology
DX: Z12.31 Encounter for screening mammogram for malignant neoplasm of breast (principal); Z85.3 Personal history of malignant neoplasm of breast; Z80.3 Family history of malignant neoplasm of breast
CPT/HCPCS: 77063; 77067

== ENCOUNTER → 2019-07-31 16:45 | Oncology outpatient (ONC) | payer MEDICARE, BC, SELFPAY ==
[2018-01-23 14:05] VITALS: BP 147/80; PULSE 57; RESP 16; TEMP 36.6; O2SAT 97
--- NOTE | 2018-01-23 14:23 | ONC.APRN.PN ---
Assessment and Plan (1) Rectal cancer Current visit: Yes Status: Acute 01/23/18 14:26 The patient is a 68 year old Female who is being seen in the clinic 01/23/2018. She carries a diagnosis of stage III rectal cancer presenting for her 1 year clinical evaluation in surveillance/remission since her original diagnosis was made back on March 2013. Clinically patient has been doing well overall. She does have some joint discomfort particularly in the ankles. Otherwise she denies any new dark tarry stools or bright red blood per rectum. She does struggle at times with some constipation and some mucousy drainage. This is not new, has been chronic even before her cancer diagnosis. Remainder of review systems negative specifically no unexplained weight loss no new pain. No unexplained bleeding or bruising. No early satiety. No abdominal distention or bloating. Most recent colonoscopy was October 06, 2016, no polyps or mass lesions. Recommendation is to repeat colonoscopy in 2-3 years. Reassuringly on exam no clinical signs or symptoms of disease recurrence. CBC, CMP unremarkable. CEA remains reassuringly low at 0.4. Return to clinic in 1 years time for provider visit CBC CMP CA. Just a few days prior CT with contrast of chest abdomen pelvis. This will be her last scheduled screening CT scan per NCCN guidelines. PN -Subjective Interval history: The patient is a 68 year old Female who is being seen in the clinic 01/23/2018. She carries a diagnosis of stage III rectal cancer presenting for her 1 year clinical evaluation in surveillance/remission since her original diagnosis was made back on March 2013. Clinically patient has been doing well overall. She does have some joint discomfort particularly in the ankles. Otherwise she denies any new dark tarry stools or bright red blood per rectum. She does struggle at times with some constipation and some mucousy drainage. This is not new, has been chronic even before her cancer diagnosis. Remainder of review systems negative specifically no unexplained weight loss no new pain. No unexplained bleeding or bruising. No early satiety. No abdominal distention or bloating. Most recent colonoscopy was October 06, 2016, no polyps or mass lesions. Recommendation is to repeat colonoscopy in 2-3 years. Past Medical History The patient's past medical history is significant for: 1) rectal carcinoma. Stage IIIa (pT2, pN1, MX). Diagnosis: 03/21/2013. Low anterior resection. Pathology confirming an infiltrating moderately differentiated adenocarcinoma. Tumor infiltrating into the muscularis propria. Margins of resection negative. No LV I seen. 2 of 20 lymph nodes were positive for disease. Treatment: Adjuvant sequential chemoradiation therapy. Chemotherapy with capecitabine. Last treatment on August 2013. Surveillance: 08/24/2016. Colonoscopy. No polyps or mass lesions anastomosis without evidence of recurrence. No tissue sent. 10/18/2016. No evidence of recurrent disease. - Patient Self-Reported Symptoms SR Gastrointestinal issues: Constipation SR Musculoskeletal issues: Joint pain or swelling Results - Imaging Additional studies: Procedures Closed [endoscopic] biopsy of large intestine (03/06/13) Endoscopic polypectomy of large intestine (06/04/14) Injection or infusion of other therapeutic or prophylactic substance (03/06/13) Ligation of hemorrhoids (06/04/14) Other anterior resection of rectum (03/21/13) Venous catheterization, not elsewhere classified (03/21/13) Home Medications and Allergies Home Medications Medication Instructions Recorded Confirmed Type [TUMERIC] EVERY OTHER DAY #0 07/01/16 History gabapentin 500 mg PO DAILY #0 07/01/16 History amlodipine 5 mg PO DAILY 01/23/18 01/23/18 History atenolol 25 mg PO DAILY 01/23/18 01/23/18 History lamotrigine 200 mg PO DAILY 01/23/18 01/23/18 History levothyroxine 125 mcg PO DAILY 01/23/18 01/23/18 History lovastatin 20 mg PO DAILY 01/23/18 01/23/18 History Allergies Allergy/AdvReac Type Severity Reaction Status Date / Time latex Allergy Unknown ASTHMA Unverified 09/28/17 13:01 REACTION; NAUSEA Exam Vital signs: Last Vital Signs Temp 97.8 F 01/23/18 14:05 Pulse 57 L 01/23/18 14:05 Resp 16 01/23/18 14:05 BP 147/80 H 01/23/18 14:05 Pulse Ox 97 01/23/18 14:05 - Constitutional positive no acute distress, positive obese - Routine HEENT Exam Eye: Present: conjunctivae pink. Absent: conjunctival icterus, scleral injection ENT: Present: mucous membranes moist, oropharynx clear - Routine Neck Exam Present: supple. Absent: lymphadenopathy - Routine Respiratory Exam Present: Clear to auscultation bilaterally. Absent: rales, rhonchi, wheezes - Routine Cardiovascular Exam Present: RRR, S1, S2. Absent: murmur, gallop, rubs, JVD - Routine Abdominal Exam Present: soft, normoactive bowel sounds. Absent: tenderness, distended, organomegaly, mass - Routine Extremities Exam Absent: edema, calf tenderness - Routine Skin Exam Present: intact, normal turgor. Absent: rash - Routine Neurological Exam Present: alert, oriented X3 - Routine Psychiatric Exam Present: normal affect
[2018-06-22 10:26] VITALS: BP 134/81; PULSE 70; RESP 18; TEMP 36.8; O2SAT 96
--- NOTE | 2018-06-22 17:40 | ONC.APRN.PN ---
PN -Subjective Interval history: The patient is a 68 year old Female who is being seen in the clinic 06/22/2018. She carries a diagnosis of stage III rectal cancer presenting for urgent/acute visit reporting a bruise and lump in my left breast. Patient states she 1st noticed a bruise and tenderness in her left breast around [place] time. Shortly thereafter she noticed a lump. She does occasionally perform breast exams she has not noticed a lump previously. She admittedly has quite large breasts and they can be difficult to examine at home. No other changes to report. No new pain. No new lumps or bumps. No skin changes. No drainage from nipple. Per patient report she has chronically inverted nipple in her left breast. She goes on to states every time I get a mammogram the tech is worried about my nipple but its always been like that. No unexplained weight loss. No headaches. Appetite is stable, activity tolerance stable as well. Most recent mammogram was routine screening bilateral approximately 3 years ago. Most recent colonoscopy was October 06, 2016, no polyps or mass lesions. Recommendation is to repeat colonoscopy in 2-3 years. Past Medical History The patient's past medical history is significant for: 1) rectal carcinoma. Stage IIIa (pT2, pN1, MX). Diagnosis: 03/21/2013. Low anterior resection. Pathology confirming an infiltrating moderately differentiated adenocarcinoma. Tumor infiltrating into the muscularis propria. Margins of resection negative. No LV I seen. 2 of 20 lymph nodes were positive for disease. Treatment: Adjuvant sequential chemoradiation therapy. Chemotherapy with capecitabine. Last treatment on August 2013. Surveillance: 08/24/2016. Colonoscopy. No polyps or mass lesions anastomosis without evidence of recurrence. No tissue sent. 10/18/2016. No evidence of recurrent disease. - Patient Self-Reported Symptoms SR Cardiovascular issues: Palpitations SR Gastrointestinal issues: Constipation SR Musculoskeletal issues: Joint pain or swelling Home Medications and Allergies Home Medications Medication Instructions Recorded Confirmed Type gabapentin 500 mg PO DAILY #0 07/01/16 History amlodipine 5 mg PO DAILY 01/23/18 01/23/18 History atenolol 25 mg PO DAILY 01/23/18 01/23/18 History lamotrigine 200 mg PO DAILY 01/23/18 01/23/18 History levothyroxine 125 mcg PO DAILY 01/23/18 01/23/18 History lovastatin 20 mg PO DAILY 01/23/18 01/23/18 History Allergies Allergy/AdvReac Type Severity Reaction Status Date / Time latex Allergy Unknown ASTHMA Unverified 09/28/17 13:01 REACTION; NAUSEA Exam - Constitutional positive no acute distress, positive obese - Routine HEENT Exam Eye: Present: conjunctivae pink. Absent: conjunctival icterus, scleral injection ENT: Present: mucous membranes moist, oropharynx clear - Routine Neck Exam Present: supple. Absent: lymphadenopathy - Routine Chest/Breast/Axilla Exam Breast: Present: induration, mass. Absent: tenderness, swelling, erythema, rashes Axillae: Absent: lymphadenopathy, mass, tenderness Comments: palpable mass left breast approx 5:00. Nontender. Fixed. Some architectural distortion and very subtle dimpling of the skin in this area as well. Left breast nipple is inverted however pt is adamant it has always been like that. No palpable axillary lymphadenopathy. Breasts are pendulous. - Routine Respiratory Exam Present: Clear to auscultation bilaterally. Absent: rales, rhonchi, wheezes - Routine Cardiovascular Exam Present: RRR, S1, S2. Absent: murmur, gallop, rubs, JVD - Routine Abdominal Exam Present: soft, normoactive bowel sounds. Absent: tenderness, distended, organomegaly - Routine Extremities Exam Absent: edema, calf tenderness - Routine Skin Exam Present: intact, normal turgor. Absent: erythema, rash - Routine Neurological Exam Present: alert, oriented X3 - Routine Psychiatric Exam Present: normal affect Results - Imaging Additional studies: Procedures Closed [endoscopic] biopsy of large intestine (03/06/13) Endoscopic polypectomy of large intestine (06/04/14) Injection or infusion of other therapeutic or prophylactic substance (03/06/13) Ligation of hemorrhoids (06/04/14) Assessment and Plan (1) Rectal cancer Current visit: Yes Status: Acute pt seen today for urgent same day visit to eval new breast mass. (2) Breast mass, left Current visit: Yes Status: Acute First noticed by patient approx 1 week ago. Is palpable on exam left breast approximately 5:00 position. Fixed. Nontender. Approximately 2cm in diameter. Also noted is some architectural distortion and very subtle skin dimpling over this area. The left nipple is retracted the patient states this is chronic her left nipple has always been this way. No palpable axillary lymphadenopathy. Most recent screening bilateral mammogram was approximately 3 years ago. We will go ahead and order screening/diagnostic mammogram with attention to left breast palpable mass in the 5 o'clock position. Ultrasound if indicated. We will follow closely, her next appointment will clearly be determined by the imaging. Patient is aware she verbalizes understanding and agrees with the above plan of care. - Time Spent with Patient 25 mins
--- NOTE | 2018-07-10 16:41 | PC.NURSE ---
Dr Pineda called regarding this patients. Breast Bx did show carcinoma but due to her hxo rectal ca, she as some additional testing aside from the ER/KS/HER2. This includes BRIGIDA 3 and some type of interferon test but I could not make out the details as the connection was poor. From what I could gather, these were done today and should be available in the next few days.
[2018-07-12 13:42] VITALS: BP 132/84; PULSE 54; RESP 18; TEMP 36.3; O2SAT 98
--- NOTE | 2018-07-12 14:11 | P.PNONC_ITS ---
PN -Subjective Interval history: Diagnosis: Left-sided breast cancer, ER/VT positive HER2 negative, clinically T2 N0 Interval history: The patient is a 68-year-old woman who returns today for follow-up. She notes that around [place] time, she was lifting some objects and bruised her breast. It was tender. She noticed a lump in the left breast. Because of this , she sought medical attention. She was found to have approximately 2-1/2 cm mass in the left breast. She was referred for an ultrasound and mammogram. A suspicious lesion was found at the 3 o'clock position in the left breast at middle depth. A biopsy and clip placement was performed. Pathology from that specimen did in fact show a moderately differentiated breast cancer. ER and VT were positive. HER2 was negative. By ultrasound, there was no evidence of lymph node involvement. The patient still has some soreness in the breast. She has noted some bruising following the biopsy. She notes some ongoing fatigue which has been chronic. She does have some occasional pain in the abdomen that is been present since her colon cancer surgery. No nausea or vomiting. No shortness of breath. She denies any other changes in her health. Past Medical History The patient's past medical history is significant for: 1) rectal carcinoma. Stage IIIa (pT2, pN1, MX). Diagnosis: 03/21/2013. Low anterior resection. Pathology confirming an infiltrating moderately differentiated adenocarcinoma. Tumor infiltrating into the muscularis propria. Margins of resection negative. No LV I seen. 2 of 20 lymph nodes were positive for disease. Treatment: Adjuvant sequential chemoradiation therapy. Chemotherapy with capecitabine. Last treatment on August 2013. Surveillance: 08/24/2016. Colonoscopy. No polyps or mass lesions anastomosis without evidence of recurrence. No tissue sent. 10/18/2016. No evidence of recurrent disease. She also has a history of hypertension. She has a history of bipolar disorder that is been under good control. She has a history of hypothyroidism. Her medications include alprazolam amlodipine atenolol gabapentin lamotrigine levothyroxine lovastatin health and zolpidem. Her family history is notable for father who had metastatic prostate cancer. She believes that her grandmother had breast cancer although she is not sure about the details Social history: She is . She works as an artist. - Patient Self-Reported Symptoms SR Cardiovascular issues: Palpitations SR Gastrointestinal issues: Constipation SR Musculoskeletal issues: Joint pain or swelling Home Medications and Allergies Home Medications Medication Instructions Recorded Confirmed Type gabapentin 500 mg PO DAILY #0 07/01/16 07/12/18 History amlodipine 5 mg PO DAILY 01/23/18 07/12/18 History atenolol 25 mg PO DAILY 01/23/18 07/12/18 History lamotrigine 200 mg PO DAILY 01/23/18 07/12/18 History levothyroxine 125 mcg PO DAILY 01/23/18 07/12/18 History lovastatin 20 mg PO DAILY 01/23/18 07/12/18 History alprazolam 0.5 mg PO BID PRN 07/12/18 07/12/18 History zolpidem 07/12/18 History Allergies Allergy/AdvReac Type Severity Reaction Status Date / Time latex Allergy Unknown ASTHMA Unverified 09/28/17 13:01 REACTION; NAUSEA Exam - Constitutional positive no acute distress, positive obese Comments: She is not further examined. Results - Imaging Additional studies: Procedures Closed [endoscopic] biopsy of large intestine (03/06/13) Endoscopic polypectomy of large intestine (06/04/14) Injection or infusion of other therapeutic or prophylactic substance (03/06/13) Ligation of hemorrhoids (06/04/14) Assessment and Plan (1) Rectal cancer Current visit: Yes Status: Acute pt seen today for urgent same day visit to eval new breast mass. She is nearly 5 years out from her rectal cancer. A CT scan last summer showed no evidence of recurrence and her CEAs have been normal. She will be due for a colonoscopy in 2-3 years. (2) Breast mass, left Current visit: Yes Status: Acute 68-year-old woman with a new diagnosis of left breast cancer. Clinically this appears to be stage II. Will make referral to surgery. The patient prefers to see Dr. De La Cruz. I think it will be helpful to get an Oncotype when her surgery is performed. I explained to the patient that the goal of treatment was cure. Generally surgery was the mainstay of treatment. Options would include mastectomy or lumpectomy followed by radiation. Long-term outcomes were equivalent between these 2 approaches. If chemotherapy is needed, generally follows surgery. Then radiation can be performed and finally hormonal therapy. We discussed indications for chemotherapy. This would include HER2 positive disease which she does not have. Extensive lymph node involvement would be an indication but we do not have any clinical evidence of that at this point. High risk disease by Oncotype also would be an indication for chemotherapy. She does work as an artist and has concerns about risk for neuropathy. I did reassure her that although Taxol is commonly used when chemotherapy is needed there are alternatives that would have a lower risk for neuropathy. 40 min was spent with the patient and her , the majority was in counseling.
--- NOTE | 2018-08-16 10:33 | ONC.SCHED ---
OncoType DX order requisition faxed to [facility].
--- NOTE | 2018-08-16 10:36 | ONC.SCHED ---
OncoType DX: Pathology report ([facility] [id number]) for procedure done on 08/09/2018 released to on 08/16/2018
--- NOTE | 2018-08-31 11:38 | ONC.SCHED ---
OncoType DX status: According to [employer] report ETA: 09/08/18
--- NOTE | 2018-09-04 15:28 | ONC.SCHED ---
Oncotype DX received
[2018-09-05 15:21] VITALS: BP 127/81; PULSE 59; RESP 16; TEMP 36.7; O2SAT 95
--- NOTE | 2018-09-05 15:53 | P.PNONC_ITS ---
PN -Subjective Interval history: Diagnosis: Left-sided breast cancer, ER/[place] positive HER2 negative, clinically T2 N0i+, a recurrence score of 32 previous treatment: 1. Lumpectomy and sentinel node biopsy July 2018. Interval history: The patient is a 68-year-old woman who returns today for follow-up. Since her last visit here, she has undergone lumpectomy and sentinel node biopsy about 4 weeks ago. She is recovering reasonably well. She does have some paresthesias in the axilla and upper arm. She notes occasional tenderness in the breast but is not needing any pain medication. Her appetite has been stable. Strength and energy level have been low. She denies any shortness of breath or cough. No GI complaints. She notes that she has been bothered by some twitching in her eye and some palpitations that she thinks are related to anxiety. She denies any other changes in her health. Past Medical History The patient's past medical history is significant for: 1) rectal carcinoma. Stage IIIa (pT2, pN1, MX). Diagnosis: 03/21/2013. Low anterior resection. Pathology confirming an infiltrating moderately differentiated adenocarcinoma. Tumor infiltrating into the muscularis propria. Margins of resection negative. No LV I seen. 2 of 20 lymph nodes were positive for disease. Treatment: Adjuvant sequential chemoradiation therapy. Chemotherapy with capecitabine. Last treatment on August 2013. Surveillance: 08/24/2016. Colonoscopy. No polyps or mass lesions anastomosis without evidence of recurrence. No tissue sent. 10/18/2016. No evidence of recurrent disease. She also has a history of hypertension. She has a history of bipolar disorder that is been under good control. She has a history of hypothyroidism. Her medications include alprazolam amlodipine atenolol gabapentin lamotrigine levothyroxine lovastatin health and zolpidem. Her family history is notable for father who had metastatic prostate cancer. She believes that her grandmother had breast cancer although she is not sure a bout the details Social history: She is . She works as an artist. - Patient Self-Reported Symptoms SR Cardiovascular issues: Palpitations SR Gastrointestinal issues: Constipation SR Musculoskeletal issues: Joint pain or swelling Home Medications and Allergies Home Medications Medication Instructions Recorded Confirmed Type gabapentin 500 mg PO DAILY #0 07/01/16 09/05/18 History amlodipine 5 mg PO DAILY 01/23/18 09/05/18 History atenolol 25 mg PO DAILY 01/23/18 09/05/18 History lamotrigine 200 mg PO DAILY 01/23/18 09/05/18 History levothyroxine 125 mcg PO DAILY 01/23/18 09/05/18 History lovastatin 20 mg PO DAILY 01/23/18 09/05/18 History alprazolam 0.5 mg PO BID PRN 07/12/18 09/05/18 History zolpidem 5 mg PO DAILY PRN 07/12/18 09/05/18 History ondansetron 4 mg PO QID PRN #20 tab 08/09/18 09/05/18 Rx oxycodone-acetaminophen [Percocet] 1 tab PO Q4-6H PRN #20 tab 08/09/18 09/05/18 Rx tramadol 50 mg tablet 50 mg PO Q4-6H PRN #30 tab MDD 6 08/15/18 09/05/18 Rx Allergies Allergy/AdvReac Type Severity Reaction Status Date / Time latex Allergy Unknown ASTHMA Verified 08/09/18 07:35 REACTION; NAUSEA Exam Vital signs: Vital Signs Temp Pulse Resp BP Pulse Ox 09/05/18 15:21 98.0 F 59 L 16 127/81 95 Intake and Output 09/04/18 09/05/18 09/05/18 23:59 07:59 15:59 Other: Weight 97.3 kg Patient Weight 09/05/18 23:59 Weight 97.3 kg - Constitutional positive no acute distress, positive obese - Routine Chest/Breast/Axilla Exam Comments: Limited exam of the breast shows a well healing incision on the inferior left breast. She does have a fluid collection or perhaps a hematoma present that is minimally tender. Her axillary incision is healing well. She is not further examined. Results - Imaging Additional studies: Procedures Closed [endoscopic] biopsy of large intestine (03/06/13) Endoscopic polypectomy of large intestine (06/04/14) Injection or infusion of other therapeutic or prophylactic substance (03/06/13) Ligation of hemorrhoids (06/04/14) Assessment and Plan (1) Rectal cancer Current visit: Yes Status: Acute She is 5 years out from her rectal cancer. A CT scan last summer showed no evidence of recurrence and her CEAs have been normal. She will be due for a colonoscopy in 2-3 years. (2) Breast mass, left Current visit: Yes Status: Acute 68-year-old woman with a new diagnosis of left breast cancer. She has undergone resection of a T2 N0i+ tumor. The recurrence score was high risk at 32 suggesting that she would have a higher risk of recurrence than size alone would predict. It would also predict that she would benefit substantially from adjuvant chemotherapy. Today, we discussed the role of chemotherapy in further reducing her risk of recurrence over hormone therapy alone. I described the regimen of Adriamycin and Cytoxan followed by Taxol. Side effects reviewed with the patient. She is most concerned about the risk for permanent neuropathy with Taxol. 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 We also talked about Taxotere and Cytoxan given every 3 weeks for 4 cycles. This would have more short-term toxicity compared to the other regimen but with a lower risk for long-term toxicity. Specifically, the risk for 2nd malignancies, cardiac complications and neuropathy is substantially reduced. In exchange, there is more short term toxicity particularly in skin and nail changes, nausea vomiting, myelosuppression and need for transfusions. There is a risk for infection which is about the same with both regimens. She is willing to go ahead with the TC. Will plan on having a Port-A-Cath placed an beginning sometime within the next couple of weeks. At the completion of her chemotherapy she will require adjuvant radiation with hormone therapy after that.
--- NOTE | 2018-09-05 16:04 | ONC.SCHED ---
CYTOXAN [id number] AND TAXOTERE [id number] [facility] [place]
--- NOTE | 2018-09-07 15:05 | PC.NURSE ---
Pt was here today for Chemo teaching, per NCCN pt will need PO steriod prior to start of treatment. Will notify Dr. Silva to initiate PO steriod prior to first treatment.
--- NOTE | 2018-09-07 15:34 | PC.NURSE ---
Addendum entered by Christina Tejada R.N. 09/13/18 16:05: called to f/u with pt regarding medication. RX sent to [facility]. Pt states yeah, I got it. Original Note: Chemo teaching completed with pt. Discussed tx regimen Docetaxel and Cyclophosphamide. Informed pt of possible side effects and treatment management. Discussed clinic flow and appointments. Explained follow up appts and lab monitoring. Informed pt s/s of infection and precautions to take during and between treatments/ Pt verbalized understanding. All questions answered.
--- NOTE | 2018-09-14 17:18 | PC.NURSE ---
Addendum entered by Edwin Griffin R.N. 09/18/18 10:28: Dr Small called in an Rx for lorazepam for this pt due to her anxiety disorder that increases while in our treatment room. Dr Small also requested that she would do well in an end cubicle of even a private room to help decrease her anxiety level. This will be indicated in her chart. Pt called and advised of Rx. Original Note: Received message from Dr. Francine Small requesting to prescribe pt anti anxiety medications prior to pt's first Chemo treatment appointment r/t to pt's anxiety disorder. This commercial loan underwriter returned Dr. Small's call to discuss medication options appropriate during treatment, left message. [phone]
[2018-09-20 09:48] VITALS: BP 120/76; PULSE 65; RESP 16; TEMP 36.7; O2SAT 97
--- NOTE | 2018-09-20 10:04 | ONC.PN ---
PN -Subjective Interval history: Diagnosis: Left-sided breast cancer, ER/[place] positive HER2 negative, clinically T2 N0i+, a recurrence score of 32 previous treatment: 1. Lumpectomy and sentinel node biopsy July 2018. Interval history: The patient is a 68-year-old woman who returns today for follow-up. She has T2 N0i+ breast cancer with a high recurrence score. She is due to start her chemotherapy today. Since her last visit here, she has had port placed. She tolerated the procedure well. Today, she is not having any pain. No shortness of breath or cough. No nausea or vomiting. She does have some chronic constipation. She has had some anxiety regarding her upcoming treatment. She does have a prescription for lorazepam but has not taken any. She denies any fevers or chills. She otherwise is feeling well. Past Medical History The patient's past medical history is significant for: 1) rectal carcinoma. Stage IIIa (pT2, pN1, MX). Surgically resected in March 2013 followed by chemo radiation with Xeloda finishing August 2013.. She also has a history of hypertension. She has a history of bipolar disorder that is been under good control. She has a history of hypothyroidism. Her medications include alprazolam amlodipine atenolol gabapentin lamotrigine levothyroxine lovastatin health and zolpidem. Her family history is notable for father who had metastatic prostate cancer. She believes that her grandmother had breast cancer although she is not sure about the details Social history: She is . She works as an artist. - Patient Self-Reported Symptoms SR Constitution: Fatigue/Malaise SR Cardiovascular issues: Palpitations SR Gastrointestinal issues: Constipation SR Musculoskeletal issues: Joint pain or swelling, Difficulty walking Home Medications and Allergies Home Medications Medication Instructions Recorded Confirmed Type gabapentin 500 mg PO DAILY #0 07/01/16 09/20/18 History amlodipine 5 mg PO DAILY 01/23/18 09/20/18 History atenolol 25 mg PO DAILY 01/23/18 09/20/18 History lamotrigine 200 mg PO DAILY 01/23/18 09/20/18 History levothyroxine 125 mcg PO DAILY 01/23/18 09/20/18 History lovastatin 20 mg PO DAILY 01/23/18 09/20/18 History alprazolam 0.5 mg PO BID PRN 07/12/18 09/20/18 History zolpidem 5 mg PO DAILY PRN 07/12/18 09/20/18 History ondansetron 4 mg PO QID PRN #20 tab 08/09/18 09/20/18 Rx oxycodone-acetaminophen [Percocet] 1 tab PO Q4-6H PRN #20 tab 08/09/18 09/20/18 Rx tramadol 50 mg tablet 50 mg PO Q4-6H PRN #30 tab MDD 6 08/15/18 09/20/18 Rx dexamethasone [Decadron] 8 mg PO Q12H 3 Days #12 tab 09/12/18 09/20/18 Rx lidocaine-prilocaine See Rx Instructions .ROUTE 09/13/18 09/20/18 Rx .COMPLEX #30 gram oxycodone-acetaminophen [Percocet] 1 tab PO Q4-6H PRN #14 tab 09/13/18 09/20/18 Rx lorazepam 1 mg PO QD-BID PRN 09/20/18 09/20/18 History Allergies Allergy/AdvReac Type Severity Reaction Status Date / Time latex Allergy Unknown ASTHMA Verified 08/09/18 07:35 REACTION; NAUSEA Exam Vital signs: Vital Signs Temp Pulse Resp BP Pulse Ox 09/20/18 09:48 98.1 F 65 16 120/76 97 Intake and Output 09/19/18 09/20/18 09/20/18 23:59 07:59 15:59 Other: Weight 96.3 kg Patient Weight 09/20/18 23:59 Weight 96.3 kg - Constitutional positive no acute distress, positive obese - Routine HEENT Exam Head: Present: normocephalic, atraumatic Eye: Present: EOMI, PERRL. Absent: conjunctival icterus, scleral injection ENT: Present: mucous membranes moist, oropharynx clear - Routine Neck Exam Present: supple. Absent: lymphadenopathy, thyromegaly - Routine Respiratory Exam Present: Clear to auscultation bilaterally. Absent: rales, wheezes - Routine Cardiovascular Exam Present: RRR, S1, S2. Absent: murmur - Routine Abdominal Exam Present: soft, normoactive bowel sounds. Absent: tenderness, organomegaly, mass - Routine Extremities Exam Absent: cyanosis, clubbing, edema - Routine Back/Spine Exam Back/Spine: Absent: paraspinal tenderness, vertebral tenderness - Routine Skin Exam Present: intact. Absent: petechiae, rash - Routine Neurological Exam Present: alert, oriented X3 - Routine Psychiatric Exam Present: normal affect, normal thought process Results - Imaging Additional studies: Procedures Closed [endoscopic] biopsy of large intestine (03/06/13) Endoscopic polypectomy of large intestine (06/04/14) Injection or infusion of other therapeutic or prophylactic substance (03/06/13) Ligation of hemorrhoids (06/04/14) Assessment and Plan (1) Rectal cancer Current visit: Yes Status: Acute She is 5 years out from her rectal cancer. A CT scan last summer showed no evidence of recurrence and her CEAs have been normal. She will be due for a colonoscopy in 2-3 years. (2) Breast mass, left Current visit: Yes Status: Acute 68-year-old woman with a new diagnosis of left breast cancer. She has undergone resection of a T2 N0i+ tumor. The recurrence score was high risk at 32 suggesting that she would have a higher risk of recurrence than size alone would predict. She will proceed with her 1st dose of Taxotere and Cytoxan today. Side effects were again reviewed with the patient. She is willing to proceed. We will plan on treating for a total of 4 cycles. She will return to clinic in 3 weeks for follow-up but sooner should the need arise.
[2018-09-20] MEDS: SODIUM CHLORIDE 0.9% 500 ML 250 ML IV (10:46)
[2018-09-20] MEDS: DEXAMETHASONE 12 MG in SODIUM CHLORIDE 0.9% 50 ML 212 ML IV (11:00)
[2018-09-20 11:08] LABS: Alanine Aminotransferase 29 IU/L (9-52); Albumin 4.1 g/dL (3.5-5.0); Albumin Globulin Ratio 1.6 (1.0-2.8); Alkaline Phosphatase 59 U/L (38-126); Aspartate Aminotransferase 20 IU/L (14-36); Bilirubin Total 0.3 mg/dL (0.2-1.3); Blood Urea Nitrogen 14 mg/dL (7-17); Carbon Dioxide 28 mmol/L (22-32); Chloride 102 mmol/L (98-107); Estimated Glomerular Filt Rate > 60.0 mL/min (>60); Globulin 2.5 g/dL (1.7-4.1); Glucose 114 mg/dL (80-110); HEMOLYSIS 17 (0-50); Potassium 4.1 mmol/L (3.4-5.1); Sodium 136 mmol/L (137-145); Total Protein 6.6 g/dL (6.3-8.2)
[2018-09-20 11:09] LABS: Add Manual Diff / Slide Review NO; Basophils Absolute Auto 0 /uL (0-100); Basophils Percent Auto 0.2 % (0-2); Eosinophils Absolute Auto 0 /uL (0-450); Hematocrit 42.4 % (36-46); Hemoglobin 13.7 g/dL (12.0-16.0); Lymphocytes Absolute Auto 700 /uL (1100-4500); Lymphocytes Percent Auto 5.5 % (25-40); Mean Corpuscular HGB Conc 32.4 % (30-36); Mean Corpuscular Hemoglobin 29.9 PG (26-34); Mean Corpuscular Volume 92.3 fL (80-100); Monocytes Absolute Auto 800 /uL (0-900); Monocytes Percent Auto 6.9 % (3-14); Neutrophils Absolute Auto 10700 /uL (1500-7000); Neutrophils Percent Auto 87.4 % (50-75); Platelet Count 261 X10^3/uL (150-400); Red Cell Distribution Width 14.2 % (11.6-14.8); White Blood Cell Count 12.2 X10^3/uL (4.5-11.0)
[2018-09-20] MEDS: ONDANSETRON 16 MG in SODIUM CHLORIDE 0.9% 50 ML 232 ML IV (11:21)
[2018-09-20] MEDS: [UNRECOGNIZED DRUG - OTHER] IV (13:45)
[2018-09-20] MEDS: CYCLOPHOSPHAMIDE IV (13:45)
[2018-09-21 13:19] VITALS: BP 140/80; PULSE 58; RESP 17; TEMP 36.8; O2SAT 96
[2018-09-21] MEDS: PEGFILGRASTIM-JMDB 6 MG/0.6 ML SYRINGE SUBCUT (13:31)
--- NOTE | 2018-09-27 13:29 | PC.NURSE ---
Pt had lab draw today. Reports taking Zofran to relieve chemo induced nausea. Per pt, Zofran causing significant extremely painful constipation. Pt reports taking senna and stool softener with some relief. Discussed Ativan as a possible option for nausea relief. Pt would like to try rotating Zofran and Ativan if possible. Will notify Dr. Silva regarding possible Ativan RX for pt.
[2018-09-27 13:34] LABS: Hematocrit 41.2 % (36-46); Hemoglobin 13.8 g/dL (12.0-16.0); Mean Corpuscular HGB Conc 33.5 % (30-36); Mean Corpuscular Hemoglobin 30.3 PG (26-34); Mean Corpuscular Volume 90.6 fL (80-100); Platelet Count 111 X10^3/uL (150-400); Red Blood Cell Count 4.55 X10^6/uL (4.0-5.2); Red Cell Distribution Width 13.9 % (11.6-14.8); White Blood Cell Count 15.1 X10^3/uL (4.5-11.0)
[2018-09-27 13:36] LABS: Add Manual Diff / Slide Review YES
[2018-09-27 13:44] LABS: Alanine Aminotransferase 26 IU/L (9-52); Albumin 3.6 g/dL (3.5-5.0); Albumin Globulin Ratio 1.4 (1.0-2.8); Alkaline Phosphatase 73 U/L (38-126); Aspartate Aminotransferase 17 IU/L (14-36); BUN Creatinine Ratio 16.3 (6-22); Bilirubin Total 0.3 mg/dL (0.2-1.3); Blood Urea Nitrogen 13 mg/dL (7-17); Calcium 8.8 mg/dL (8.4-10.2); Carbon Dioxide 28 mmol/L (22-32); Chloride 98 mmol/L (98-107); Estimated Glomerular Filt Rate > 60.0 mL/min (>60); Globulin 2.5 g/dL (1.7-4.1); Glucose 97 mg/dL (80-110); HEMOLYSIS < 15 (0-50); Potassium 4.1 mmol/L (3.4-5.1); Sodium 134 mmol/L (137-145); Total Protein 6.1 g/dL (6.3-8.2)
[2018-09-27 14:28] LABS: Neutrophils Absolute Manual 8909 /uL (3000-5900); Total Cells Counted 100
[2018-09-27 14:30] LABS: Dohle Bodies 1+; RBC Morphology Normal Morphology; Toxic Granulation Present
--- NOTE | 2018-09-28 12:59 | PC.NURSE ---
Ativan for nausea called into [facility], pt aware.
[2018-10-11 08:42] VITALS: BP 122/84; PULSE 81; RESP 18; TEMP 36.2; O2SAT 98
--- NOTE | 2018-10-11 08:58 | ONC.NAV ---
Description: Medical Marijuana Authorization Activity: Completed a new medical marijuana authorization form for pt, signed by Dr. Silva. Pt was able to take it home with her following her visit. No additional needs indicated at this time.
--- NOTE | 2018-10-11 09:05 | P.PNONC_ITS ---
PN -Subjective Interval history: Diagnosis: Left-sided breast cancer, ER/CO positive HER2 negative, clinically T2 N0i+, a recurrence score of 32 previous treatment: 1. Lumpectomy and sentinel node biopsy July 2018. 2. One cycle of Taxotere and Cytoxan Interval history: The patient is a 68-year-old woman who returns today for follow-up. She has T2 N0i+ breast cancer with a high recurrence score. She has completed her 1st cycle of chemotherapy. She tolerated with some difficulty. She notes that she did have some nausea and heartburn. She was taking ondansetron as well as aunt acids and lorazepam. She did not have any emesis. She did have some bone pain from the Neulasta. She took Claritin and tramadol which were helpful. She was bothered by significant constipation. She had abdominal cramping and pain related to that as well. she denies any fevers or chills. No shortness of breath or cough. She had some tenderness in the mouth but no open sores. No skin rash. She has noted some change in her taste and appetite. Over the last few days, she has begun to feel little bit better and is ready for her 2nd cycle today. Past Medical History The patient's past medical history is significant for: 1) rectal carcinoma. Stage IIIa (pT2, pN1, MX). Surgically resected in March 2013 followed by chemo radiation with Xeloda finishing August 2013.. She also has a history of hypertension. She has a history of bipolar disorder that is been under good control. She has a history of hypothyroidism. Her medications include alprazolam amlodipine atenolol gabapentin lamotrigine levothyroxine lovastatin health and zolpidem. Her family history is notable for father who had metastatic prostate cancer. She believes that her grandmother had breast cancer although she is not sure about the details Social history: She is . She works as an artist. - Patient Self-Reported Symptoms SR Constitution: Fatigue/Malaise SR Cardiovascular issues: Palpitations SR Gastrointestinal issues: Constipation SR Musculoskeletal issues: Joint pain or swelling, Difficulty walking Home Medications and Allergies Home Medications Medication Instructions Recorded Confirmed Type gabapentin 500 mg PO DAILY #0 07/01/16 09/20/18 History amlodipine 5 mg PO DAILY 01/23/18 09/20/18 History atenolol 25 mg PO DAILY 01/23/18 09/20/18 History lamotrigine 200 mg PO DAILY 01/23/18 09/20/18 History levothyroxine 125 mcg PO DAILY 01/23/18 09/20/18 History lovastatin 20 mg PO DAILY 01/23/18 09/20/18 History alprazolam 0.5 mg PO BID PRN 07/12/18 09/20/18 History zolpidem 5 mg PO DAILY PRN 07/12/18 09/20/18 History ondansetron 4 mg PO QID PRN #20 tab 08/09/18 09/20/18 Rx oxycodone-acetaminophen [Percocet] 1 tab PO Q4-6H PRN #20 tab 08/09/18 09/20/18 Rx tramadol 50 mg tablet 50 mg PO Q4-6H PRN #30 tab MDD 6 08/15/18 09/20/18 Rx lidocaine-prilocaine See Rx Instructions .ROUTE 09/13/18 09/20/18 Rx .COMPLEX #30 gram oxycodone-acetaminophen [Percocet] 1 tab PO Q4-6H PRN #14 tab 09/13/18 09/20/18 Rx lorazepam 1 mg PO QD-BID PRN 09/20/18 09/20/18 History ondansetron 8 mg PO BID PRN #30 tab 09/20/18 Rx lorazepam 1 mg PO BID PRN 30 Days #30 tab 09/27/18 Rx Allergies Allergy/AdvReac Type Severity Reaction Status Date / Time latex Allergy Unknown ASTHMA Verified 08/09/18 07:35 REACTION; NAUSEA Exam Vital signs: Vital Signs Temp Pulse Resp BP Pulse Ox 10/11/18 08:42 97.2 F L 81 18 122/84 98 Intake and Output 10/10/18 10/11/18 10/11/18 23:59 07:59 15:59 Other: Weight 95 kg Patient Weight 10/11/18 23:59 Weight 95 kg - Constitutional positive no acute distress, positive average body habitus - Routine HEENT Exam Head: Present: normocephalic, atraumatic Eye: Present: EOMI, PERRL. Absent: conjunctival icterus, scleral injection ENT: Present: mucous membranes moist, oropharynx clear - Routine Neck Exam Present: supple. Absent: lymphadenopathy, thyromegaly - Routine Respiratory Exam Present: Clear to auscultation bilaterally. Absent: rales, wheezes - Routine Cardiovascular Exam Present: RRR, S1, S2. Absent: murmur - Routine Abdominal Exam Present: soft, normoactive bowel sounds. Absent: tenderness, organomegaly, mass - Routine Extremities Exam Absent: cyanosis, clubbing, edema - Routine Back/Spine Exam Back/Spine: Absent: vertebral tenderness - Routine Skin Exam Present: intact. Absent: petechiae, rash - Routine Neurological Exam Present: alert, oriented X3 - Routine Psychiatric Exam Present: normal affect, normal thought process Results - Labs Laboratory Last Values WBC 15.1 X10^3/uL (4.5-11.0) H 09/27/18 13:20 RBC 4.55 X10^6/uL (4.0-5.2) 09/27/18 13:20 Hgb 13.8 g/dL (12.0-16.0) 09/27/18 13:20 Hct 41.2 % (36-46) 09/27/18 13:20 MCV 90.6 fL (80-100) 09/27/18 13:20 MCH 30.3 PG (26-34) 09/27/18 13:20 MCHC 33.5 % (30-36) 09/27/18 13:20 RDW 13.9 % (11.6-14.8) 09/27/18 13:20 Plt Count 111 X10^3/uL (150-400) L 09/27/18 13:20 Neut % (Auto) Not Reportable 09/27/18 13:20 Lymph % (Auto) Not Reportable 09/27/18 13:20 [place] % (Auto) Not Reportable 09/27/18 13:20 Eos % (Auto) Not Reportable 09/27/18 13:20 Baso % (Auto) Not Reportable 09/27/18 13:20 Neut # (Auto) 12844 /uL (3254-6593) H 09/20/18 10:45 Lymph # (Auto) Not Reportable 09/27/18 13:20 [place] # (Auto) Not Reportable 09/27/18 13:20 Eos # (Auto) 0 /uL (0-450) 09/20/18 10:45 Baso # (Auto) Not Reportable 09/27/18 13:20 Total Counted 100 09/27/18 13:20 Seg Neutrophils % 32.0 % (38-70) L 09/27/18 13:20 Band Neutrophils % 27.0 % (3-7) H 09/27/18 13:20 Lymphocytes % (Manual) 2.0 % (25-45) L 09/27/18 13:20 Atypical Lymphs % 13.0 % (-0) H 09/27/18 13:20 Monocytes % (Manual) 16.0 % (2-11) H 09/27/18 13:20 Metamyelocytes % 8.0 % (-0) H 09/27/18 13:20 Myelocytes % 1.0 % (-0) H 09/27/18 13:20 Promyelocytes % 1.0 % (-0) H 09/27/18 13:20 Neutrophils # (Manual) 8909 /uL (6594-7623) H 09/27/18 13:20 Toxic Granulation Present H 09/27/18 13:20 Dohle Bodies 1+ H 09/27/18 13:20 RBC Morphology Normal morphology 09/27/18 13:20 Sodium 134 mmol/L (137-145) L 09/27/18 13:20 Potassium 4.1 mmol/L (3.4-5.1) 09/27/18 13:20 Chloride 98 mmol/L (98-107) 09/27/18 13:20 Carbon Dioxide 28 mmol/L (22-32) 09/27/18 13:20 BUN 13 mg/dL (7-17) 09/27/18 13:20 Creatinine 0.80 mg/dL (0.52-1.04) 09/27/18 13:20 Estimated GFR > 60.0 mL/min (>60) 09/27/18 13:20 BUN/Creatinine Ratio 16.3 (6-22) 09/27/18 13:20 Glucose 97 mg/dL (80-110) 09/27/18 13:20 Calcium 8.8 mg/dL (8.4-10.2) 09/27/18 13:20 Total Bilirubin 0.3 mg/dL (0.2-1.3) 09/27/18 13:20 AST 17 IU/L (14-36) 09/27/18 13:20 ALT 26 IU/L (9-52) 09/27/18 13:20 Alkaline Phosphatase 73 U/L (38-126) 09/27/18 13:20 Total Protein 6.1 g/dL (6.3-8.2) L 09/27/18 13:20 Albumin 3.6 g/dL (3.5-5.0) 09/27/18 13:20 Globulin 2.5 g/dL (1.7-4.1) 09/27/18 13:20 Albumin/Globulin Ratio 1.4 (1.0-2.8) 09/27/18 13:20 - Imaging Additional studies: Procedures Closed [endoscopic] biopsy of large intestine (03/06/13) Endoscopic polypectomy of large intestine (06/04/14) Injection or infusion of other therapeutic or prophylactic substance (03/06/13) Ligation of hemorrhoids (06/04/14) Assessment and Plan (1) Rectal cancer Current visit: Yes Status: Acute She is 5 years out from her rectal cancer. A CT scan last summer showed no evidence of recurrence and her CEAs have been normal. She will be due for a colonoscopy in 2-3 years. (2) Breast mass, left Current visit: Yes Status: Acute 68-year-old woman with a new diagnosis of left breast cancer. She has undergone resection of a T2 N0i+ tumor. The recurrence score was high risk at 32 suggesting that she would have a higher risk of recurrence than size alone would predict. She did tolerate her 1st cycle of chemotherapy with a significant amount of difficulty. Will go ahead with her 2nd cycle today. She will continue with the antacids laxatives and Claritin. She will have a tramadol take as needed. She will return to clinic in about 3 weeks for follow-up but sooner should the need arise.
[2018-10-11 09:30] LABS: Add Manual Diff / Slide Review NO; Basophils Absolute Auto 0 /uL (0-100); Eosinophils Absolute Auto 0 /uL (0-450); Hemoglobin 13.6 g/dL (12.0-16.0); Lymphocytes Absolute Auto 400 /uL (1100-4500); Lymphocytes Percent Auto 5.9 % (25-40); Mean Corpuscular HGB Conc 33.3 % (30-36); Mean Corpuscular Hemoglobin 30.5 PG (26-34); Mean Corpuscular Volume 91.6 fL (80-100); Monocytes Absolute Auto 200 /uL (0-900); Monocytes Percent Auto 3.1 % (3-14); Neutrophils Absolute Auto 5900 /uL (1500-7000); Platelet Count 333 X10^3/uL (150-400); Red Blood Cell Count 4.47 X10^6/uL (4.0-5.2); Red Cell Distribution Width 14.1 % (11.6-14.8); White Blood Cell Count 6.5 X10^3/uL (4.5-11.0)
[2018-10-11] MEDS: SODIUM CHLORIDE 0.9% 500 ML 250 ML IV (09:33)
[2018-10-11 09:52] LABS: Alanine Aminotransferase 30 IU/L (9-52); Albumin 4.2 g/dL (3.5-5.0); Albumin Globulin Ratio 1.7 (1.0-2.8); Alkaline Phosphatase 65 U/L (38-126); Aspartate Aminotransferase 25 IU/L (14-36); BUN Creatinine Ratio 28.6 (6-22); Bilirubin Total 0.5 mg/dL (0.2-1.3); Blood Urea Nitrogen 20 mg/dL (7-17); Calcium 9.4 mg/dL (8.4-10.2); Carbon Dioxide 26 mmol/L (22-32); Chloride 99 mmol/L (98-107); Estimated Glomerular Filt Rate > 60.0 mL/min (>60); Globulin 2.5 g/dL (1.7-4.1); Glucose 222 mg/dL (80-110); HEMOLYSIS 15 (0-50); Sodium 136 mmol/L (137-145); Total Protein 6.7 g/dL (6.3-8.2)
[2018-10-11 09:53] LABS: Cholesterol 186 mg/dL (140-199); HDL Cholesterol 65 mg/dL (40-60); LDL Cholesterol Calculated 103 mg/dL (<100); Triglycerides 90 mg/dL (35-150)
[2018-10-11 10:23] LABS: Carcinoembryonic Antigen 0.5 ng/mL (0.1-3.0)
[2018-10-11] MEDS: DEXAMETHASONE 12 MG in SODIUM CHLORIDE 0.9% 50 ML 212 ML IV (10:37)
[2018-10-11] MEDS: ONDANSETRON 16 MG in SODIUM CHLORIDE 0.9% 50 ML 232 ML IV (10:59)
[2018-10-11] MEDS: [UNRECOGNIZED DRUG - OTHER] IV (12:46)
[2018-10-11] MEDS: CYCLOPHOSPHAMIDE IV (12:46)
[2018-10-12] MEDS: PEGFILGRASTIM-JMDB 6 MG/0.6 ML SYRINGE SUBCUT (13:32)
[2018-10-12 13:35] VITALS: BP 128/69; PULSE 59; RESP 16; TEMP 36.8; O2SAT 98
[2018-10-18 15:46] LABS: Hematocrit 39.4 % (36-46); Hemoglobin 12.8 g/dL (12.0-16.0); Mean Corpuscular HGB Conc 32.4 % (30-36); Mean Corpuscular Hemoglobin 29.7 PG (26-34); Mean Corpuscular Volume 91.8 fL (80-100); Platelet Count 149 X10^3/uL (150-400); Red Blood Cell Count 4.29 X10^6/uL (4.0-5.2); Red Cell Distribution Width 14.5 % (11.6-14.8)
[2018-10-18 15:50] LABS: Add Manual Diff / Slide Review YES
[2018-10-18 15:57] LABS: Alanine Aminotransferase 31 IU/L (9-52); Albumin 3.8 g/dL (3.5-5.0); Albumin Globulin Ratio 1.7 (1.0-2.8); Alkaline Phosphatase 83 U/L (38-126); Aspartate Aminotransferase 25 IU/L (14-36); BUN Creatinine Ratio 16.3 (6-22); Bilirubin Total 0.2 mg/dL (0.2-1.3); Blood Urea Nitrogen 13 mg/dL (7-17); Calcium 8.9 mg/dL (8.4-10.2); Carbon Dioxide 30 mmol/L (22-32); Chloride 97 mmol/L (98-107); Estimated Glomerular Filt Rate > 60.0 mL/min (>60); Globulin 2.3 g/dL (1.7-4.1); Glucose 102 mg/dL (80-110); HEMOLYSIS < 15 (0-50); Potassium 4.5 mmol/L (3.4-5.1); Sodium 136 mmol/L (137-145); Total Protein 6.1 g/dL (6.3-8.2)
[2018-10-18 16:06] LABS: Morphology Comment Normal Morphology; Neutrophils Absolute Manual 8500 /uL (3000-5900); Total Cells Counted 100
--- NOTE | 2018-10-24 17:00 | PC.NURSE ---
Patient called at 1108 reporting itchy pimple type spots on scalp which are uncomfortable, started 3-4 days ago. She had scalp shaved a couple weeks ago, hair is starting to grow back. She did try Cetaphil lotion but did not find it as yet helpful.This nurse advised her to try some OTC anti-itch products. Patient stated still having some triamcinolone cream which this nurse stated would be ok to try on a spot and observe if improvement. Cold compresses also recommended. She was advised to call in again with any worsening of the symptoms.
[2018-11-01 10:45] LABS: Add Manual Diff / Slide Review NO; Basophils Absolute Auto 0 /uL (0-100); Basophils Percent Auto 0.4 % (0-2); Eosinophils Absolute Auto 0 /uL (0-450); Hematocrit 37.3 % (36-46); Hemoglobin 12.3 g/dL (12.0-16.0); Lymphocytes Absolute Auto 400 /uL (1100-4500); Lymphocytes Percent Auto 7.3 % (25-40); Mean Corpuscular Hemoglobin 30.3 PG (26-34); Mean Corpuscular Volume 91.8 fL (80-100); Monocytes Absolute Auto 200 /uL (0-900); Monocytes Percent Auto 4.5 % (3-14); Neutrophils Absolute Auto 4300 /uL (1500-7000); Neutrophils Percent Auto 87.8 % (50-75); Platelet Count 316 X10^3/uL (150-400); Red Blood Cell Count 4.06 X10^6/uL (4.0-5.2); Red Cell Distribution Width 16.1 % (11.6-14.8); White Blood Cell Count 4.8 X10^3/uL (4.5-11.0)
[2018-11-01 10:51] VITALS: BP 133/87; PULSE 77; RESP 18; TEMP 36.2; O2SAT 98
[2018-11-01 11:00] LABS: Alanine Aminotransferase 23 IU/L (9-52); Albumin Globulin Ratio 1.5 (1.0-2.8); Alkaline Phosphatase 60 U/L (38-126); Aspartate Aminotransferase 18 IU/L (14-36); Bilirubin Total 0.4 mg/dL (0.2-1.3); Blood Urea Nitrogen 13 mg/dL (7-17); Calcium 9.4 mg/dL (8.4-10.2); Carbon Dioxide 27 mmol/L (22-32); Chloride 100 mmol/L (98-107); Estimated Glomerular Filt Rate > 60.0 mL/min (>60); Globulin 2.6 g/dL (1.7-4.1); Glucose 159 mg/dL (80-110); HEMOLYSIS < 15 (0-50); Sodium 137 mmol/L (137-145); Total Protein 6.6 g/dL (6.3-8.2)
--- NOTE | 2018-11-01 11:15 | P.PNONC_ITS ---
PN -Subjective Interval history: Diagnosis: Left-sided breast cancer, ER/MN positive HER2 negative, clinically T2 N0i+, a recurrence score of 32 previous treatment: 1. Lumpectomy and sentinel node biopsy July 2018. 2. 2 cycles of Taxotere and Cytoxan Interval history: The patient is a 68-year-old woman who returns today for follow-up. She has T2 N0i+ breast cancer with a high recurrence score. She has completed her 2nd cycle of chemotherapy. She did have some toxicity with her treatment. Her biggest complaint was constipation. She was taking some fiber supplement as well as MiraLax which helped. She later developed some diarrhea which has since resolved. She has not had any nausea or vomiting. No fevers or chills. She has had some tenderness in the mouth and tongue but no open sores. She notes that she has had some decrease in her taste particularly in the 1st week or so after treatment. No shortness of breath or cough. She does have some increasing fatigue. She also notes some bony pain for about 4 days after her Neulasta shot. She has been using tramadol which has been helpful. She denies any other changes in her health. Past Medical History The patient's past medical history is significant for: 1) rectal carcinoma. Stage IIIa (pT2, pN1, MX). Surgically resected in March 2013 followed by chemo radiation with Xeloda finishing August 2013.. She also has a history of hypertension. She has a history of bipolar disorder that is been under good control. She has a history of hypothyroidism. Her medications include alprazolam amlodipine atenolol gabapentin lamotrigine levothyroxine lovastatin health and zolpidem. Her family history is notable for father who had metastatic prostate cancer. She believes that her grandmother had breast cancer although she is not sure about the details Social history: She is . She works as an artist. - Patient Self-Reported Symptoms SR Constitution: Fatigue/Malaise SR Cardiovascular issues: Palpitations SR Gastrointestinal issues: Constipation SR Musculoskeletal issues: Joint pain or swelling, Difficulty walking Home Medications and Allergies Home Medications Medication Instructions Recorded Confirmed Type gabapentin 700 mg PO DAILY #0 07/01/16 11/01/18 History amlodipine 5 mg PO DAILY 01/23/18 11/01/18 History atenolol 25 mg PO DAILY 01/23/18 11/01/18 History lamotrigine 200 mg PO DAILY 01/23/18 11/01/18 History levothyroxine 125 mcg PO DAILY 01/23/18 11/01/18 History lovastatin 20 mg PO DAILY 01/23/18 11/01/18 History alprazolam 0.5 mg PO BID PRN 07/12/18 11/01/18 History zolpidem 5 mg PO DAILY PRN 07/12/18 11/01/18 History ondansetron 4 mg PO QID PRN #20 tab 08/09/18 11/01/18 Rx oxycodone-acetaminophen [Percocet] 1 tab PO Q4-6H PRN #20 tab 08/09/18 08/15/18 Rx lidocaine-prilocaine See Rx Instructions .ROUTE 09/13/18 11/01/18 Rx .COMPLEX #30 gram oxycodone-acetaminophen [Percocet] 1 tab PO Q4-6H PRN #14 tab 09/13/18 11/01/18 Rx lorazepam 1 mg PO QD-BID PRN 09/20/18 11/01/18 History ondansetron 8 mg PO BID PRN #30 tab 09/20/18 11/01/18 Rx tramadol 50 mg PO Q4-6H PRN #30 tab MDD 6 11/01/18 Rx Allergies Allergy/AdvReac Type Severity Reaction Status Date / Time latex Allergy Unknown ASTHMA Verified 08/09/18 07:35 REACTION; NAUSEA Exam Vital signs: Vital Signs Temp Pulse Resp BP Pulse Ox 11/01/18 10:51 97.2 F L 77 18 133/87 98 Intake and Output 10/31/18 11/01/18 11/01/18 23:59 07:59 15:59 Other: Weight 94.8 kg Patient Weight 11/01/18 23:59 Weight 94.8 kg - Constitutional positive no acute distress, positive average body habitus - Routine HEENT Exam Head: Present: normocephalic, atraumatic Eye: Present: EOMI, PERRL. Absent: conjunctival icterus, scleral injection ENT: Present: mucous membranes moist, oropharynx clear - Routine Neck Exam Present: supple. Absent: lymphadenopathy, thyromegaly - Routine Respiratory Exam Present: Clear to auscultation bilaterally. Absent: rales, wheezes - Routine Cardiovascular Exam Present: RRR, S1, S2. Absent: murmur - Routine Abdominal Exam Present: soft, normoactive bowel sounds. Absent: organomegaly, mass - Routine Extremities Exam Absent: cyanosis, clubbing, edema - Routine Skin Exam Present: intact. Absent: petechiae, rash - Routine Neurological Exam Present: alert, oriented X3 - Routine Psychiatric Exam Present: normal affect, normal thought process Results - Labs Laboratory Last Values WBC 4.8 X10^3/uL (4.5-11.0) 11/01/18 10:28 RBC 4.06 X10^6/uL (4.0-5.2) 11/01/18 10:28 Hgb 12.3 g/dL (12.0-16.0) 11/01/18 10:28 Hct 37.3 % (36-46) 11/01/18 10:28 MCV 91.8 fL (80-100) 11/01/18 10:28 MCH 30.3 PG (26-34) 11/01/18 10:28 MCHC 33.0 % (30-36) 11/01/18 10:28 RDW 16.1 % (11.6-14.8) H 11/01/18 10:28 Plt Count 316 X10^3/uL (150-400) 11/01/18 10:28 Neut % (Auto) 87.8 % (50-75) H 11/01/18 10:28 Lymph % (Auto) 7.3 % (25-40) L 11/01/18 10:28 [place] % (Auto) 4.5 % (3-14) 11/01/18 10:28 Eos % (Auto) 0.0 % (2-4) L 11/01/18 10:28 Baso % (Auto) 0.4 % (0-2) 11/01/18 10:28 Neut # (Auto) 4300 /uL (2023-5159) 11/01/18 10:28 Lymph # (Auto) 400 /uL (4212-7138) L 11/01/18 10:28 [place] # (Auto) 200 /uL (0-900) 11/01/18 10:28 Eos # (Auto) 0 /uL (0-450) 11/01/18 10:28 Baso # (Auto) 0 /uL (0-100) 11/01/18 10:28 Total Counted 100 10/18/18 15:30 Seg Neutrophils % 46.0 % (38-70) 10/18/18 15:30 Band Neutrophils % 4.0 % (3-7) 10/18/18 15:30 Lymphocytes % (Manual) 17.0 % (25-45) L 10/18/18 15:30 Atypical Lymphs % 13.0 % (-0) H 10/18/18 15:30 Monocytes % (Manual) 15.0 % (2-11) H 10/18/18 15:30 Eosinophils % (Manual) 5.0 % (2-4) H 10/18/18 15:30 Metamyelocytes % 8.0 % (-0) H 09/27/18 13:20 Myelocytes % 1.0 % (-0) H 09/27/18 13:20 Promyelocytes % 1.0 % (-0) H 09/27/18 13:20 Neutrophils # (Manual) 8500 /uL (8504-2296) H 10/18/18 15:30 Differential Comment Normal morphology 10/18/18 15:30 Toxic Granulation Present H 09/27/18 13:20 Dohle Bodies 1+ H 09/27/18 13:20 RBC Morphology Not Reportable 10/18/18 15:30 Sodium 137 mmol/L (137-145) 11/01/18 10:28 Potassium 4.0 mmol/L (3.4-5.1) 11/01/18 10:28 Chloride 100 mmol/L (98-107) 11/01/18 10:28 Carbon Dioxide 27 mmol/L (22-32) 11/01/18 10:28 BUN 13 mg/dL (7-17) 11/01/18 10:28 Creatinine 0.50 mg/dL (0.52-1.04) L 11/01/18 10:28 Estimated GFR > 60.0 mL/min (>60) 11/01/18 10:28 BUN/Creatinine Ratio 26.0 (6-22) H 11/01/18 10:28 Glucose 159 mg/dL (80-110) H 11/01/18 10:28 Calcium 9.4 mg/dL (8.4-10.2) 11/01/18 10:28 Total Bilirubin 0.4 mg/dL (0.2-1.3) 11/01/18 10:28 AST 18 IU/L (14-36) 11/01/18 10:28 ALT 23 IU/L (9-52) 11/01/18 10:28 Alkaline Phosphatase 60 U/L (38-126) 11/01/18 10:28 Total Protein 6.6 g/dL (6.3-8.2) 11/01/18 10:28 Albumin 4.0 g/dL (3.5-5.0) 11/01/18 10:28 Globulin 2.6 g/dL (1.7-4.1) 11/01/18 10:28 Albumin/Globulin Ratio 1.5 (1.0-2.8) 11/01/18 10:28 Triglycerides 90 mg/dL (35-150) 10/11/18 09:14 Cholesterol 186 mg/dL (140-199) 10/11/18 09:14 LDL Cholesterol, Calc 103 mg/dL (<100) H 10/11/18 09:14 HDL Cholesterol 65 mg/dL (40-60) H 10/11/18 09:14 Carcinoembryonic Ag 0.5 ng/mL (0.1-3.0) 10/11/18 09:14 TSH 1.40 uIU/mL (0.47-4.68) 10/11/18 09:14 - Imaging Additional studies: Procedures Closed [endoscopic] biopsy of large intestine (03/06/13) Endoscopic polypectomy of large intestine (06/04/14) Injection or infusion of other therapeutic or prophylactic substance (03/06/13) Ligation of hemorrhoids (06/04/14) Assessment and Plan (1) Rectal cancer Current visit: Yes Status: Acute She is 5 years out from her rectal cancer. A CT scan last summer showed no evidence of recurrence and her CEAs have been normal. She will be due for a colonoscopy in 2-3 years. (2) Breast mass, left Current visit: Yes Status: Acute 68-year-old woman with a new diagnosis of left breast cancer. She has undergone resection of a T2 N0i+ tumor. The recurrence score was high risk at 32 suggesting that she would have a higher risk of recurrence than size alone would predict. She has completed 2 cycles of chemotherapy. She will go ahead with her 3rd cycle today. She will continue with MiraLax and fiber supplements to try and control the constipation. I did give her her a refill for tramadol. She will return to clinic in about 3 weeks for follow-up. She will be due for her 4th and final cycle of treatment at that time.
[2018-11-01] MEDS: DEXAMETHASONE 12 MG in SODIUM CHLORIDE 0.9% 50 ML 212 ML IV (12:09)
[2018-11-01] MEDS: SODIUM CHLORIDE 0.9% 500 ML 250 ML IV (12:10)
[2018-11-01] MEDS: ONDANSETRON 16 MG in SODIUM CHLORIDE 0.9% 50 ML 232 ML IV (12:42)
[2018-11-01] MEDS: CYCLOPHOSPHAMIDE IV (14:43)
[2018-11-01] MEDS: [UNRECOGNIZED DRUG - OTHER] IV (14:43)
[2018-11-02] MEDS: PEGFILGRASTIM-JMDB 6 MG/0.6 ML SYRINGE SUBCUT (15:42)
[2018-11-02 16:30] VITALS: BP 135/70; PULSE 58; RESP 16; TEMP 36.8
[2018-11-08 14:39] LABS: Hematocrit 38.8 % (36-46); Hemoglobin 12.5 g/dL (12.0-16.0); Mean Corpuscular HGB Conc 32.1 % (30-36); Mean Corpuscular Hemoglobin 29.7 PG (26-34); Mean Corpuscular Volume 92.2 fL (80-100); Platelet Count 139 X10^3/uL (150-400); Red Blood Cell Count 4.21 X10^6/uL (4.0-5.2); Red Cell Distribution Width 16.1 % (11.6-14.8); White Blood Cell Count 15.9 X10^3/uL (4.5-11.0)
[2018-11-08 14:40] LABS: Add Manual Diff / Slide Review YES
[2018-11-08 14:48] LABS: Alanine Aminotransferase 29 IU/L (9-52); Albumin 3.7 g/dL (3.5-5.0); Albumin Globulin Ratio 1.5 (1.0-2.8); Alkaline Phosphatase 78 U/L (38-126); Aspartate Aminotransferase 21 IU/L (14-36); BUN Creatinine Ratio 18.8 (6-22); Bilirubin Total 0.4 mg/dL (0.2-1.3); Blood Urea Nitrogen 15 mg/dL (7-17); Calcium 8.9 mg/dL (8.4-10.2); Carbon Dioxide 32 mmol/L (22-32); Chloride 95 mmol/L (98-107); Estimated Glomerular Filt Rate > 60.0 mL/min (>60); Globulin 2.4 g/dL (1.7-4.1); Glucose 105 mg/dL (80-110); HEMOLYSIS < 15 (0-50); Potassium 4.3 mmol/L (3.4-5.1); Sodium 135 mmol/L (137-145); Total Protein 6.1 g/dL (6.3-8.2)
[2018-11-08 15:07] LABS: Anisocytosis 1+; Neutrophils Absolute Manual 10494 /uL (3000-5900); Polychromasia 2+; Total Cells Counted 100
[2018-11-22 09:46] VITALS: BP 127/76; PULSE 67; RESP 18; TEMP 36.8; O2SAT 96
[2018-11-22 09:46] LABS: Add Manual Diff / Slide Review NO; Basophils Absolute Auto 0 /uL (0-100); Basophils Percent Auto 0.2 % (0-2); Eosinophils Absolute Auto 0 /uL (0-450); Hematocrit 36.8 % (36-46); Hemoglobin 12.1 g/dL (12.0-16.0); Lymphocytes Absolute Auto 300 /uL (1100-4500); Lymphocytes Percent Auto 5.9 % (25-40); Mean Corpuscular HGB Conc 32.9 % (30-36); Mean Corpuscular Hemoglobin 30.7 PG (26-34); Mean Corpuscular Volume 93.2 fL (80-100); Monocytes Absolute Auto 300 /uL (0-900); Monocytes Percent Auto 5.2 % (3-14); Neutrophils Absolute Auto 4500 /uL (1500-7000); Neutrophils Percent Auto 88.7 % (50-75); Platelet Count 294 X10^3/uL (150-400); Red Blood Cell Count 3.95 X10^6/uL (4.0-5.2); Red Cell Distribution Width 17.4 % (11.6-14.8); White Blood Cell Count 5.1 X10^3/uL (4.5-11.0)
[2018-11-22 10:02] LABS: Alanine Aminotransferase 19 IU/L (9-52); Albumin Globulin Ratio 1.6 (1.0-2.8); Alkaline Phosphatase 57 U/L (38-126); Aspartate Aminotransferase 20 IU/L (14-36); BUN Creatinine Ratio 21.7 (6-22); Bilirubin Total 0.4 mg/dL (0.2-1.3); Blood Urea Nitrogen 13 mg/dL (7-17); Calcium 9.5 mg/dL (8.4-10.2); Carbon Dioxide 28 mmol/L (22-32); Chloride 99 mmol/L (98-107); Estimated Glomerular Filt Rate > 60.0 mL/min (>60); Globulin 2.5 g/dL (1.7-4.1); Glucose 159 mg/dL (80-110); HEMOLYSIS < 15 (0-50); Potassium 4.1 mmol/L (3.4-5.1); Sodium 136 mmol/L (137-145); Total Protein 6.5 g/dL (6.3-8.2)
--- NOTE | 2018-11-22 10:14 | ONC.MSW ---
Addendum entered and electronically signed by HAILE Sheppard 11/22/18 10:32: Pt declined a Chemo Quilt, states that she received one when she was here 6-years ago. Original Note: *Pt received Last Chemo Card today.
--- NOTE | 2018-11-22 10:15 | P.PNONC_ITS ---
PN -Subjective Interval history: Diagnosis: Left-sided breast cancer, ER/AK positive HER2 negative, T2 N0i+, a recurrence score of 32 previous treatment: 1. Lumpectomy and sentinel node biopsy July 2018. 2. 3 cycles of Taxotere and Cytoxan Interval history: The patient is a 68-year-old woman who returns today for follow-up. She has T2 N0i+ breast cancer with a high recurrence score. She has completed her 3rd cycle of chemotherapy and is due for her 4th and final cycle today. With her last cycle, she again had trouble with constipation. She also noted bone pain for about 3 days or so following her infusion. She did try some tramadol but did not find it particularly affective. Her primary physician gave her some Dilaudid which help with the pain but made her very sleepy. She had occasional nausea but no vomiting. No shortness of breath or cough. No fevers or chills. She denies any other changes in her health. Past Medical History The patient's past medical history is significant for: 1) rectal carcinoma. Stage IIIa (pT2, pN1, MX). Surgically resected in March 2013 followed by chemo radiation with Xeloda finishing August 2013.. She also has a history of hypertension. She has a history of bipolar disorder that is been under good control. She has a history of hypothyroidism. Her medications include alprazolam amlodipine atenolol gabapentin lamotrigine levothyroxine lovastatin health and zolpidem. Her family history is notable for father who had metastatic prostate cancer. She believes that her grandmother had breast cancer although she is not sure about the details Social history: She is . She works as an artist. - Patient Self-Reported Symptoms SR Constitution: Fatigue/Malaise SR Cardiovascular issues: Palpitations SR Gastrointestinal issues: Constipation SR Musculoskeletal issues: Joint pain or swelling, Difficulty walking Home Medications and Allergies Home Medications Medication Instructions Recorded Confirmed Type gabapentin 800 mg PO DAILY #0 07/01/16 11/22/18 History amlodipine 5 mg PO DAILY 01/23/18 11/22/18 History atenolol 25 mg PO DAILY 01/23/18 11/22/18 History lamotrigine 200 mg PO DAILY 01/23/18 11/22/18 History levothyroxine 125 mcg PO DAILY 01/23/18 11/22/18 History lovastatin 20 mg PO DAILY 01/23/18 11/22/18 History alprazolam 0.5 mg PO BID PRN 07/12/18 11/22/18 History zolpidem 5 mg PO DAILY PRN 07/12/18 11/22/18 History ondansetron 4 mg PO QID PRN #20 tab 08/09/18 11/22/18 Rx oxycodone-acetaminophen [Percocet] 1 tab PO Q4-6H PRN #20 tab 08/09/18 11/22/18 Rx lidocaine-prilocaine See Rx Instructions .ROUTE 09/13/18 11/22/18 Rx .COMPLEX #30 gram oxycodone-acetaminophen [Percocet] 1 tab PO Q4-6H PRN #14 tab 09/13/18 11/22/18 Rx lorazepam 1 mg PO QD-BID PRN 09/20/18 11/22/18 History ondansetron 8 mg PO BID PRN #30 tab 09/20/18 11/22/18 Rx tramadol 50 mg PO Q4-6H PRN #30 tab MDD 6 11/01/18 11/22/18 Rx dexamethasone 4 mg PO Q12H 3 Days #6 tab 11/22/18 Rx hydromorphone [Dilaudid] 2 mg PO Q4H PRN 11/22/18 11/22/18 History Allergies Allergy/AdvReac Type Severity Reaction Status Date / Time latex Allergy Unknown ASTHMA Verified 08/09/18 07:35 REACTION; NAUSEA Exam Vital signs: Vital Signs Temp Pulse Resp BP Pulse Ox 11/22/18 09:46 98.2 F 67 18 127/76 96 Intake and Output 11/21/18 11/22/18 11/22/18 23:59 07:59 15:59 Other: Weight 94.1 kg Patient Weight 11/22/18 23:59 Weight 94.1 kg - Constitutional positive no acute distress, positive average body habitus - Routine HEENT Exam Head: Present: normocephalic, atraumatic Eye: Present: EOMI, PERRL. Absent: conjunctival icterus, scleral injection ENT: Present: mucous membranes moist, oropharynx clear - Routine Neck Exam Present: supple. Absent: lymphadenopathy, thyromegaly - Routine Respiratory Exam Present: Clear to auscultation bilaterally. Absent: rales, wheezes - Routine Cardiovascular Exam Present: RRR, S1, S2. Absent: murmur - Routine Abdominal Exam Present: soft, normoactive bowel sounds. Absent: tenderness, organomegaly, mass - Routine Extremities Exam Absent: cyanosis, clubbing, edema - Routine Skin Exam Present: intact. Absent: petechiae, rash - Routine Neurological Exam Present: alert, oriented X3 - Routine Psychiatric Exam Present: normal affect, normal thought process Results - Labs Laboratory Last Values WBC 5.1 X10^3/uL (4.5-11.0) 11/22/18 09:35 RBC 3.95 X10^6/uL (4.0-5.2) L 11/22/18 09:35 Hgb 12.1 g/dL (12.0-16.0) 11/22/18 09:35 Hct 36.8 % (36-46) 11/22/18 09:35 MCV 93.2 fL (80-100) 11/22/18 09:35 MCH 30.7 PG (26-34) 11/22/18 09:35 MCHC 32.9 % (30-36) 11/22/18 09:35 RDW 17.4 % (11.6-14.8) H 11/22/18 09:35 Plt Count 294 X10^3/uL (150-400) 11/22/18 09:35 Neut % (Auto) 88.7 % (50-75) H 11/22/18 09:35 Lymph % (Auto) 5.9 % (25-40) L 11/22/18 09:35 [place] % (Auto) 5.2 % (3-14) 11/22/18 09:35 Eos % (Auto) 0.0 % (2-4) L 11/22/18 09:35 Baso % (Auto) 0.2 % (0-2) 11/22/18 09:35 Neut # (Auto) 4500 /uL (0294-6488) 11/22/18 09:35 Lymph # (Auto) 300 /uL (4628-2885) L 11/22/18 09:35 [place] # (Auto) 300 /uL (0-900) 11/22/18 09:35 Eos # (Auto) 0 /uL (0-450) 11/22/18 09:35 Baso # (Auto) 0 /uL (0-100) 11/22/18 09:35 Total Counted 100 11/08/18 14:15 Seg Neutrophils % 40.0 % (38-70) 11/08/18 14:15 Band Neutrophils % 26.0 % (3-7) H 11/08/18 14:15 Lymphocytes % (Manual) 14.0 % (25-45) L 11/08/18 14:15 Atypical Lymphs % 6.0 % (-0) H 11/08/18 14:15 Monocytes % (Manual) 10.0 % (2-11) 11/08/18 14:15 Eosinophils % (Manual) 5.0 % (2-4) H 10/18/18 15:30 Basophils % (Manual) 1.0 % (0-1) 11/08/18 14:15 Metamyelocytes % 3.0 % (-0) H 11/08/18 14:15 Myelocytes % 1.0 % (-0) H 09/27/18 13:20 Promyelocytes % 1.0 % (-0) H 09/27/18 13:20 Neutrophils # (Manual) 29711 /uL (6051-6822) H 11/08/18 14:15 Differential Comment Normal morphology 10/18/18 15:30 Toxic Granulation Present H 09/27/18 13:20 Dohle Bodies 1+ H 09/27/18 13:20 RBC Morphology Not Reportable 11/08/18 14:15 Polychromasia 2+ H 11/08/18 14:15 Anisocytosis 1+ H 11/08/18 14:15 Sodium 136 mmol/L (137-145) L 11/22/18 09:35 Potassium 4.1 mmol/L (3.4-5.1) 11/22/18 09:35 Chloride 99 mmol/L (98-107) 11/22/18 09:35 Carbon Dioxide 28 mmol/L (22-32) 11/22/18 09:35 BUN 13 mg/dL (7-17) 11/22/18 09:35 Creatinine 0.60 mg/dL (0.52-1.04) 11/22/18 09:35 Estimated GFR > 60.0 mL/min (>60) 11/22/18 09:35 BUN/Creatinine Ratio 21.7 (6-22) 11/22/18 09:35 Glucose 159 mg/dL (80-110) H 11/22/18 09:35 Calcium 9.5 mg/dL (8.4-10.2) 11/22/18 09:35 Total Bilirubin 0.4 mg/dL (0.2-1.3) 11/22/18 09:35 AST 20 IU/L (14-36) 11/22/18 09:35 ALT 19 IU/L (9-52) 11/22/18 09:35 Alkaline Phosphatase 57 U/L (38-126) 11/22/18 09:35 Total Protein 6.5 g/dL (6.3-8.2) 11/22/18 09:35 Albumin 4.0 g/dL (3.5-5.0) 11/22/18 09:35 Globulin 2.5 g/dL (1.7-4.1) 11/22/18 09:35 Albumin/Globulin Ratio 1.6 (1.0-2.8) 11/22/18 09:35 Triglycerides 90 mg/dL (35-150) 10/11/18 09:14 Cholesterol 186 mg/dL (140-199) 10/11/18 09:14 LDL Cholesterol, Calc 103 mg/dL (<100) H 10/11/18 09:14 HDL Cholesterol 65 mg/dL (40-60) H 10/11/18 09:14 Carcinoembryonic Ag 0.5 ng/mL (0.1-3.0) 10/11/18 09:14 TSH 1.40 uIU/mL (0.47-4.68) 10/11/18 09:14 - Imaging Additional studies: Procedures Closed [endoscopic] biopsy of large intestine (03/06/13) Endoscopic polypectomy of large intestine (06/04/14) Injection or infusion of other therapeutic or prophylactic substance (03/06/13) Ligation of hemorrhoids (06/04/14) Assessment and Plan (1) Rectal cancer Current visit: Yes Status: Acute She is 5 years out from her rectal cancer. A CT scan last summer showed no evidence of recurrence and her CEAs have been normal. She will be due for a colonoscopy in 2-3 years. (2) Breast mass, left Current visit: Yes Status: Acute 68-year-old woman with a new diagnosis of left breast cancer. She has undergone resection of a T2 N0i+ tumor. The recurrence score was high risk at 32 suggesting that she would have a higher risk of recurrence than size alone would predict. She has completed 3 cycles of chemotherapy. She will go ahead with her 4th and final cycle today. Will make referral to Radiation Oncology. She would like a little bit of a break between her chemotherapy and radiation to visit her daughter for a week or so. I do not think that that should be a problem. She will return to clinic in about 6 weeks for follow-up. After her radiation, she will be ready for hormone therapy. We talked about aromatase inhibitors today. I did review side effects with her. She will return to clinic in about 6 weeks.
[2018-11-22] MEDS: DEXAMETHASONE 12 MG in SODIUM CHLORIDE 0.9% 50 ML 212 ML IV (10:44)
[2018-11-22] MEDS: SODIUM CHLORIDE 0.9% 500 ML 250 ML IV (10:44)
[2018-11-22] MEDS: ONDANSETRON 16 MG in SODIUM CHLORIDE 0.9% 50 ML 232 ML IV (11:06)
[2018-11-22] MEDS: CYCLOPHOSPHAMIDE IV (13:53)
[2018-11-22] MEDS: [UNRECOGNIZED DRUG - OTHER] IV (13:53)
[2018-11-23 11:57] VITALS: BP 117/67; PULSE 69; RESP 18; TEMP 37.1
[2018-11-23] MEDS: PEGFILGRASTIM-JMDB 6 MG/0.6 ML SYRINGE SUBCUT (12:03)
[2018-11-29 15:09] VITALS: BP 89/68; PULSE 81; RESP 16; TEMP 36.8; O2SAT 95
[2018-11-29] MEDS: ONDANSETRON 8 MG in SODIUM CHLORIDE 0.9% 50 ML 216 ML IV (15:33)
[2018-11-29] MEDS: SODIUM CHLORIDE 0.9% 1,000 ML 1000 ML IV (15:33)
[2018-11-29 15:39] LABS: Alanine Aminotransferase 27 IU/L (9-52); Albumin 3.6 g/dL (3.5-5.0); Albumin Globulin Ratio 1.6 (1.0-2.8); Alkaline Phosphatase 73 U/L (38-126); Aspartate Aminotransferase 24 IU/L (14-36); BUN Creatinine Ratio 21.4 (6-22); Bilirubin Total 0.5 mg/dL (0.2-1.3); Blood Urea Nitrogen 15 mg/dL (7-17); Carbon Dioxide 33 mmol/L (22-32); Chloride 94 mmol/L (98-107); Estimated Glomerular Filt Rate > 60.0 mL/min (>60); Globulin 2.2 g/dL (1.7-4.1); Glucose 110 mg/dL (80-110); HEMOLYSIS < 15 (0-50); Hematocrit 36.8 % (36-46); Hemoglobin 12.4 g/dL (12.0-16.0); Mean Corpuscular HGB Conc 33.6 % (30-36); Mean Corpuscular Hemoglobin 30.9 PG (26-34); Platelet Count 131 X10^3/uL (150-400); Potassium 4.1 mmol/L (3.4-5.1); Red Blood Cell Count 4.01 X10^6/uL (4.0-5.2); Sodium 134 mmol/L (137-145); Total Protein 5.8 g/dL (6.3-8.2); White Blood Cell Count 10.2 X10^3/uL (4.5-11.0)
[2018-11-29 15:40] LABS: Magnesium 1.8 mg/dL (1.6-2.3)
[2018-11-29 15:41] LABS: Add Manual Diff / Slide Review YES
[2018-11-29 16:20] LABS: Neutrophils Absolute Manual 6018 /uL (3000-5900); Nucleated Red Blood Cells 1 #/Diff; Total Cells Counted 100
[2018-11-29 16:21] LABS: RBC Morphology Norm
[2019-01-02 14:56] VITALS: BP 128/73; PULSE 78; RESP 16; TEMP 37.2; O2SAT 96
--- NOTE | 2019-01-02 15:33 | ONC.PN ---
PN -Subjective Interval history: Diagnosis: Left-sided breast cancer, ER/ND positive HER2 negative, T2 N0i+, a recurrence score of 32 previous treatment: 1. Lumpectomy and sentinel node biopsy July 2018. 2. 4 cycles of Taxotere and Cytoxan finishing November 2018 3. Adjuvant radiation. She is in the 2nd week of treatment. Interval history: The patient is a 68-year-old woman who returns today for follow-up. She has T2 N0i+ breast cancer with a high recurrence score. Since her last visit here, she has completed her chemotherapy. She notes that it was slower about back with than previous cycles. She also developed upper respiratory infection with congestion sore throat and cough. Her daughter had similar illness. She has noted some watery eyes and some itching but no redness or visual changes. No fevers or chills. She is not having any shortness of breath or pain in the chest. Appetite has been good. No nausea or vomiting. Bowels have been moving normally. She has been tolerating her radiation well thus far. She denies any other changes in her health. Past Medical History The patient's past medical history is significant for: 1) rectal carcinoma. Stage IIIa (pT2, pN1, MX). Surgically resected in March 2013 followed by chemo radiation with Xeloda finishing August 2013.. She also has a history of hypertension. She has a history of bipolar disorder that is been under good control. She has a history of hypothyroidism. Her medications include alprazolam amlodipine atenolol gabapentin lamotrigine levothyroxine lovastatin health and zolpidem. Her family history is notable for father who had metastatic prostate cancer. She believes that her grandmother had breast cancer although she is not sure about the details Social history: She is . She works as an artist. - Patient Self-Reported Symptoms SR Constitution: Fatigue/Malaise SR respiratory issues: Cough SR Cardiovascular issues: Palpitations SR Gastrointestinal issues: Constipation SR Musculoskeletal issues: Joint pain or swelling, Difficulty walking Home Medications and Allergies Home Medications Medication Instructions Recorded Confirmed Type gabapentin 800 mg PO DAILY #0 07/01/16 01/02/19 History amlodipine 5 mg PO DAILY 01/23/18 01/02/19 History atenolol 25 mg PO DAILY 01/23/18 01/02/19 History lamotrigine 200 mg PO DAILY 01/23/18 01/02/19 History levothyroxine 125 mcg PO DAILY 01/23/18 01/02/19 History lovastatin 20 mg PO DAILY 01/23/18 01/02/19 History alprazolam 0.5 mg PO BID PRN 07/12/18 01/02/19 History zolpidem 5 mg PO DAILY PRN 07/12/18 01/02/19 History ondansetron 4 mg PO QID PRN #20 tab 08/09/18 01/02/19 Rx oxycodone-acetaminophen [Percocet] 1 tab PO Q4-6H PRN #20 tab 08/09/18 01/02/19 Rx lidocaine-prilocaine See Rx Instructions .ROUTE 09/13/18 01/02/19 Rx .COMPLEX #30 gram oxycodone-acetaminophen [Percocet] 1 tab PO Q4-6H PRN #14 tab 09/13/18 01/02/19 Rx lorazepam 1 mg PO QD-BID PRN 09/20/18 01/02/19 History ondansetron 8 mg PO BID PRN #30 tab 09/20/18 01/02/19 Rx tramadol 50 mg PO Q4-6H PRN #30 tab MDD 6 11/01/18 01/02/19 Rx hydromorphone [Dilaudid] 2 mg PO Q4H PRN 11/22/18 01/02/19 History letrozole 2.5 mg PO DAILY 30 Days #30 tab 01/02/19 Rx Allergies Allergy/AdvReac Type Severity Reaction Status Date / Time latex Allergy Unknown ASTHMA Verified 08/09/18 07:35 REACTION; NAUSEA Exam Vital signs: Vital Signs Temp Pulse Resp BP Pulse Ox 01/02/19 14:56 98.9 F 78 16 128/73 96 Intake and Output 01/01/19 01/02/19 01/02/19 23:59 07:59 15:59 Other: Weight 91.9 kg Patient Weight 01/02/19 23:59 Weight 91.9 kg - Constitutional positive no acute distress, positive obese - Routine HEENT Exam Head: Present: normocephalic, atraumatic Eye: Present: EOMI, PERRL. Absent: conjunctival icterus, scleral injection ENT: Present: mucous membranes moist, oropharynx clear - Routine Neck Exam Present: supple. Absent: lymphadenopathy, thyromegaly - Routine Respiratory Exam Present: Clear to auscultation bilaterally. Absent: rales, wheezes - Routine Cardiovascular Exam Present: RRR, S1, S2. Absent: murmur - Routine Abdominal Exam Present: soft, normoactive bowel sounds. Absent: tenderness, organomegaly, mass - Routine Extremities Exam Absent: cyanosis, clubbing, edema - Routine Skin Exam Present: intact. Absent: petechiae, rash - Routine Neurological Exam Present: alert, oriented X3 - Routine Psychiatric Exam Present: normal affect, normal thought process Results - Labs Laboratory Last Values WBC 10.2 X10^3/uL (4.5-11.0) 11/29/18 15:10 RBC 4.01 X10^6/uL (4.0-5.2) 11/29/18 15:10 Hgb 12.4 g/dL (12.0-16.0) 11/29/18 15:10 Hct 36.8 % (36-46) 11/29/18 15:10 MCV 92.0 fL (80-100) 11/29/18 15:10 MCH 30.9 PG (26-34) 11/29/18 15:10 MCHC 33.6 % (30-36) 11/29/18 15:10 RDW 18.0 % (11.6-14.8) H 11/29/18 15:10 Plt Count 131 X10^3/uL (150-400) L 11/29/18 15:10 Neut % (Auto) Not Reportable 11/29/18 15:10 Lymph % (Auto) Not Reportable 11/29/18 15:10 [place] % (Auto) Not Reportable 11/29/18 15:10 Eos % (Auto) Not Reportable 11/29/18 15:10 Baso % (Auto) Not Reportable 11/29/18 15:10 Neut # (Auto) 4500 /uL (9207-0513) 11/22/18 09:35 Lymph # (Auto) Not Reportable 11/29/18 15:10 [place] # (Auto) Not Reportable 11/29/18 15:10 Eos # (Auto) 0 /uL (0-450) 11/22/18 09:35 Baso # (Auto) Not Reportable 11/29/18 15:10 Total Counted 100 11/29/18 15:10 Seg Neutrophils % 30.0 % (38-70) L 11/29/18 15:10 Band Neutrophils % 29.0 % (3-7) H 11/29/18 15:10 Lymphocytes % (Manual) 13.0 % (25-45) L 11/29/18 15:10 Atypical Lymphs % 4.0 % (-0) H 11/29/18 15:10 Monocytes % (Manual) 6.0 % (2-11) 11/29/18 15:10 Eosinophils % (Manual) 1.0 % (2-4) L 11/29/18 15:10 Basophils % (Manual) 1.0 % (0-1) 11/29/18 15:10 Metamyelocytes % 5.0 % (-0) H 11/29/18 15:10 Myelocytes % 8.0 % (-0) H 11/29/18 15:10 Promyelocytes % 3.0 % (-0) H 11/29/18 15:10 Neutrophils # (Manual) 6018 /uL (4696-3836) H 11/29/18 15:10 Nucleated RBCs 1 #/Diff (-0) H 11/29/18 15:10 Differential Comment Normal morphology 10/18/18 15:30 Toxic Granulation Present H 09/27/18 13:20 Dohle Bodies 1+ H 09/27/18 13:20 RBC Morphology Norm 11/29/18 15:10 Polychromasia 2+ H 11/08/18 14:15 Anisocytosis 1+ H 11/08/18 14:15 Sodium 134 mmol/L (137-145) L 11/29/18 15:10 Potassium 4.1 mmol/L (3.4-5.1) 11/29/18 15:10 Chloride 94 mmol/L (98-107) L 11/29/18 15:10 Carbon Dioxide 33 mmol/L (22-32) H 11/29/18 15:10 BUN 15 mg/dL (7-17) 11/29/18 15:10 Creatinine 0.70 mg/dL (0.52-1.04) 11/29/18 15:10 Estimated GFR > 60.0 mL/min (>60) 11/29/18 15:10 BUN/Creatinine Ratio 21.4 (6-22) 11/29/18 15:10 Glucose 110 mg/dL (80-110) 11/29/18 15:10 Calcium 9.0 mg/dL (8.4-10.2) 11/29/18 15:10 Magnesium 1.8 mg/dL (1.6-2.3) 11/29/18 15:10 Total Bilirubin 0.5 mg/dL (0.2-1.3) 11/29/18 15:10 AST 24 IU/L (14-36) 11/29/18 15:10 ALT 27 IU/L (9-52) 11/29/18 15:10 Alkaline Phosphatase 73 U/L (38-126) 11/29/18 15:10 Total Protein 5.8 g/dL (6.3-8.2) L 11/29/18 15:10 Albumin 3.6 g/dL (3.5-5.0) 11/29/18 15:10 Globulin 2.2 g/dL (1.7-4.1) 11/29/18 15:10 Albumin/Globulin Ratio 1.6 (1.0-2.8) 11/29/18 15:10 Triglycerides 90 mg/dL (35-150) 10/11/18 09:14 Cholesterol 186 mg/dL (140-199) 10/11/18 09:14 LDL Cholesterol, Calc 103 mg/dL (<100) H 10/11/18 09:14 HDL Cholesterol 65 mg/dL (40-60) H 10/11/18 09:14 Carcinoembryonic Ag 0.5 ng/mL (0.1-3.0) 10/11/18 09:14 TSH 1.40 uIU/mL (0.47-4.68) 10/11/18 09:14 - Imaging Additional studies: Procedures Closed [endoscopic] biopsy of large intestine (03/06/13) Endoscopic polypectomy of large intestine (06/04/14) Injection or infusion of other therapeutic or prophylactic substance (03/06/13) Ligation of hemorrhoids (06/04/14) Assessment and Plan (1) Rectal cancer Current visit: Yes Status: Acute She is 5 years out from her rectal cancer. She will be due for a colonoscopy in 2-3 years. (2) Breast mass, left Current visit: Yes Status: Acute 68-year-old woman with left breast cancer. She has undergone resection of a T2 N0i+ tumor. The recurrence score was high risk at 32 by Oncotype. She has completed her adjuvant chemotherapy and is nearly nursing home through with her radiation. I did give her prescription today for letrozole to start after she completes her radiation. Side effects were reviewed. We will plan on getting a baseline DEXA scan. She will return to clinic in about 2 months for follow-up. If she is doing well at that point, will continue with every 3 month followups.
[2019-02-28 13:22] VITALS: BP 115/75; PULSE 61; RESP 18; TEMP 36.9; O2SAT 97
--- NOTE | 2019-02-28 14:00 | P.PNONC_ITS ---
PN -Subjective Interval history: Diagnosis: Left-sided breast cancer, ER/MT positive HER2 negative, T2 N0i+, a recurrence score of 32 previous treatment: 1. Lumpectomy and sentinel node biopsy July 2018. 2. 4 cycles of Taxotere and Cytoxan finishing November 2018 3. Adjuvant radiation. 4. Letrozole beginning in January 2019 Interval history: The patient is a 68-year-old woman who returns today for follow-up. She has T2 N0i+ breast cancer with a high recurrence score. Since her last visit here, she has completed her radiation therapy. She did have some burning of the skin with blistering and peeling but it has since healed. Her strength and energy level have been low but gradually improving. She is back to most of her normal act ivities. She has noticed some joint pain since starting the letrozole. It has been most pronounced in the back and in the ankles but she has a little bit in the hands and wrist as well. She has also had some stomach acid and abdominal pain kind of symptoms. She had been on Prilosec but stopped and is using Tums or Pepcid occasionally now. Her appetite has been fair. She has not had any nausea or vomiting. No shortness of breath or cough. She denies any other changes in her health. Past Medical History The patient's past medical history is significant for: 1) rectal carcinoma. Stage IIIa (pT2, pN1, MX). Surgically resected in March 2013 followed by chemo radiation with Xeloda finishing August 2013. She will be due for a colonoscopy in 2019 or . . She also has a history of hypertension. She has a history of bipolar disorder that is been under good control. She has a history of hypothyroidism. Her medications include alprazolam amlodipine atenolol gabapentin lamotrigine levothyroxine lovastatin health and zolpidem. Her family history is notable for father who had metastatic prostate cancer. She believes that her grandmother had breast cancer although she is not sure about the details Social history: She is . She works as an artist. - Patient Self-Reported Symptoms SR Constitution: Fatigue/Malaise SR respiratory issues: Cough SR Cardiovascular issues: Palpitations SR Gastrointestinal issues: Constipation SR Musculoskeletal issues: Joint pain or swelling, Difficulty walking Home Medications and Allergies Home Medications Medication Instructions Recorded Confirmed Type gabapentin 800 mg PO DAILY #0 07/01/16 02/28/19 History amlodipine 5 mg PO DAILY 01/23/18 02/28/19 History atenolol 25 mg PO DAILY 01/23/18 02/28/19 History lamotrigine 200 mg PO DAILY 01/23/18 02/28/19 History levothyroxine 125 mcg PO DAILY 01/23/18 02/28/19 History lovastatin 20 mg PO DAILY 01/23/18 02/28/19 History alprazolam 0.5 mg PO BID PRN 07/12/18 02/28/19 History zolpidem 5 mg PO DAILY PRN 07/12/18 02/28/19 History letrozole 2.5 mg PO DAILY 30 Days #30 tab 01/02/19 02/28/19 Rx famotidine [Pepcid] 20 mg DAILY 02/28/19 02/28/19 History multivitamin with minerals 1 tab PO DAILY 02/28/19 02/28/19 History [Hair,Skin and Nails] Allergies Allergy/AdvReac Type Severity Reaction Status Date / Time latex Allergy Unknown ASTHMA Verified 01/30/19 11:21 REACTION; NAUSEA erythromycin base AdvReac Mild Nausea Verified 01/30/19 11:21 Exam Vital signs: Vital Signs Temp Pulse Resp BP Pulse Ox 02/28/19 13:22 98.4 F 61 18 115/75 97 Intake and Output 02/27/19 02/28/19 02/28/19 23:59 07:59 15:59 Other: Weight 90.6 kg Patient Weight 02/28/19 23:59 Weight 90.6 kg - Constitutional positive no acute distress, positive average body habitus - Routine HEENT Exam Head: Present: normocephalic, atraumatic Eye: Present: EOMI, PERRL. Absent: conjunctival icterus, scleral injection ENT: Present: mucous membranes moist, oropharynx clear - Routine Neck Exam Present: supple. Absent: lymphadenopathy, thyromegaly - Routine Respiratory Exam Present: Clear to auscultation bilaterally. Absent: rales, wheezes - Routine Cardiovascular Exam Present: RRR, S1, S2. Absent: murmur - Routine Abdominal Exam Present: soft, normoactive bowel sounds. Absent: tenderness, organomegaly, mass - Routine Extremities Exam Absent: cyanosis, clubbing, edema - Routine Back/Spine Exam Back/Spine: Absent: vertebral tenderness - Routine Skin Exam Present: intact. Absent: petechiae, rash - Routine Neurological Exam Present: alert, oriented X3 - Routine Psychiatric Exam Present: normal affect, normal thought process Results - Labs Laboratory Last Values WBC 10.2 X10^3/uL (4.5-11.0) 11/29/18 15:10 RBC 4.01 X10^6/uL (4.0-5.2) 11/29/18 15:10 Hgb 12.4 g/dL (12.0-16.0) 11/29/18 15:10 Hct 36.8 % (36-46) 11/29/18 15:10 MCV 92.0 fL (80-100) 11/29/18 15:10 MCH 30.9 PG (26-34) 11/29/18 15:10 MCHC 33.6 % (30-36) 11/29/18 15:10 RDW 18.0 % (11.6-14.8) H 11/29/18 15:10 Plt Count 131 X10^3/uL (150-400) L 11/29/18 15:10 Neut % (Auto) Not Reportable 11/29/18 15:10 Lymph % (Auto) Not Reportable 11/29/18 15:10 [place] % (Auto) Not Reportable 11/29/18 15:10 Eos % (Auto) Not Reportable 11/29/18 15:10 Baso % (Auto) Not Reportable 11/29/18 15:10 Neut # (Auto) 4500 /uL (1239-2812) 11/22/18 09:35 Lymph # (Auto) Not Reportable 11/29/18 15:10 [place] # (Auto) Not Reportable 11/29/18 15:10 Eos # (Auto) 0 /uL (0-450) 11/22/18 09:35 Baso # (Auto) Not Reportable 11/29/18 15:10 Total Counted 100 11/29/18 15:10 Seg Neutrophils % 30.0 % (38-70) L 11/29/18 15:10 Band Neutrophils % 29.0 % (3-7) H 11/29/18 15:10 Lymphocytes % (Manual) 13.0 % (25-45) L 11/29/18 15:10 Atypical Lymphs % 4.0 % (-0) H 11/29/18 15:10 Monocytes % (Manual) 6.0 % (2-11) 11/29/18 15:10 Eosinophils % (Manual) 1.0 % (2-4) L 11/29/18 15:10 Basophils % (Manual) 1.0 % (0-1) 11/29/18 15:10 Metamyelocytes % 5.0 % (-0) H 11/29/18 15:10 Myelocytes % 8.0 % (-0) H 11/29/18 15:10 Promyelocytes % 3.0 % (-0) H 11/29/18 15:10 Neutrophils # (Manual) 6018 /uL (4649-1609) H 11/29/18 15:10 Nucleated RBCs 1 #/Diff (-0) H 11/29/18 15:10 Differential Comment Normal morphology 10/18/18 15:30 Toxic Granulation Present H 09/27/18 13:20 Dohle Bodies 1+ H 09/27/18 13:20 RBC Morphology Norm 11/29/18 15:10 Polychromasia 2+ H 11/08/18 14:15 Anisocytosis 1+ H 11/08/18 14:15 Sodium 134 mmol/L (137-145) L 11/29/18 15:10 Potassium 4.1 mmol/L (3.4-5.1) 11/29/18 15:10 Chloride 94 mmol/L (98-107) L 11/29/18 15:10 Carbon Dioxide 33 mmol/L (22-32) H 11/29/18 15:10 BUN 15 mg/dL (7-17) 11/29/18 15:10 Creatinine 0.70 mg/dL (0.52-1.04) 11/29/18 15:10 Estimated GFR > 60.0 mL/min (>60) 11/29/18 15:10 BUN/Creatinine Ratio 21.4 (6-22) 11/29/18 15:10 Glucose 110 mg/dL (80-110) 11/29/18 15:10 Calcium 9.0 mg/dL (8.4-10.2) 11/29/18 15:10 Magnesium 1.8 mg/dL (1.6-2.3) 11/29/18 15:10 Total Bilirubin 0.5 mg/dL (0.2-1.3) 11/29/18 15:10 AST 24 IU/L (14-36) 11/29/18 15:10 ALT 27 IU/L (9-52) 11/29/18 15:10 Alkaline Phosphatase 73 U/L (38-126) 11/29/18 15:10 Total Protein 5.8 g/dL (6.3-8.2) L 11/29/18 15:10 Albumin 3.6 g/dL (3.5-5.0) 11/29/18 15:10 Globulin 2.2 g/dL (1.7-4.1) 11/29/18 15:10 Albumin/Globulin Ratio 1.6 (1.0-2.8) 11/29/18 15:10 Triglycerides 90 mg/dL (35-150) 10/11/18 09:14 Cholesterol 186 mg/dL (140-199) 10/11/18 09:14 LDL Cholesterol, Calc 103 mg/dL (<100) H 10/11/18 09:14 HDL Cholesterol 65 mg/dL (40-60) H 10/11/18 09:14 Carcinoembryonic Ag 0.5 ng/mL (0.1-3.0) 10/11/18 09:14 TSH 1.40 uIU/mL (0.47-4.68) 10/11/18 09:14 - Imaging Additional studies: Procedures Closed [endoscopic] biopsy of large intestine (03/06/13) Endoscopic polypectomy of large intestine (06/04/14) Injection or infusion of other therapeutic or prophylactic substance (03/06/13) Ligation of hemorrhoids (06/04/14) Assessment and Plan (1) Rectal cancer Current visit: Yes Status: Acute She is 5 years out from her rectal cancer. She will be due for a colonoscopy in 2-3 years. (2) Breast mass, left Current visit: Yes Status: Acute 68-year-old woman with left breast cancer. She has undergone resection of a T2 N0i+ tumor. The recurrence score was high risk at 32 by Oncotype. She has completed her adjuvant chemotherapy and her radiation. She has been tolerating letrozole reasonably well except for some musculoskeletal complaints. She will continue with her current regimen. She did have a DEXA scan that showed osteopenia. She will try some calcium and vitamin-D supplements. She will be due for another DEXA in about 2 years.
[2019-07-18 09:43] VITALS: BP 127/79; PULSE 63; RESP 16; TEMP 36.7; O2SAT 95
--- NOTE | 2019-07-18 10:15 | P.PNONC_ITS ---
PN -Subjective Interval history: Diagnosis: Left-sided breast cancer, ER/CA positive HER2 negative, T2 N0i+, a recurrence score of 32 previous treatment: 1. Lumpectomy and sentinel node biopsy July 2018. 2. 4 cycles of Taxotere and Cytoxan finishing November 2018 3. Adjuvant radiation. 4. Letrozole beginning in January 2019 Interval history: The patient is a 68-year-old woman who returns today for follow-up. She has T2 N0i+ breast cancer with a high recurrence score. Since her last visit here, she has completed her radiation therapy. She has been struggling with joint aches and worsening of her emotional health with letrozole. She has bipolar disorder and is on lamotrigine. She has stopped taking letrozole since late May 2019 Past Medical History The patient's past medical history is significant for: 1) rectal carcinoma. Stage IIIa (pT2, pN1, MX). Surgically resected in March 2013 followed by chemo radiation with Xeloda finishing August 2013. She will be due for a colonoscopy in 2019 or . . She also has a history of hypertension. She has a history of bipolar disorder that is been under good control. She has a history of hypothyroidism. Her medications include alprazolam amlodipine atenolol gabapentin lamotrigine levothyroxine lovastatin health and zolpidem. Her family history is notable for father who had metastatic prostate cancer. She believes that her grandmother had breast cancer although she is not sure about the details Social history: She is . She works as an artist. - Patient Self-Reported Symptoms SR Constitution: Fatigue/Malaise SR respiratory issues: Cough SR Cardiovascular issues: Palpitations (Worsening of irritability and depressive symptoms and arthralgias on letrozole) SR Gastrointestinal issues: Constipation SR Musculoskeletal issues: Joint pain or swelling, Difficulty walking Home Medications and Allergies Home Medications Medication Instructions Recorded Confirmed Type gabapentin 900 mg PO DAILY #0 07/01/16 07/18/19 History amlodipine 5 mg PO DAILY 01/23/18 02/28/19 History atenolol 25 mg PO DAILY 01/23/18 02/28/19 History lamotrigine 200 mg PO DAILY 01/23/18 02/28/19 History levothyroxine 125 mcg PO DAILY 01/23/18 02/28/19 History lovastatin 20 mg PO DAILY 01/23/18 02/28/19 History alprazolam 0.5 mg PO BID PRN 07/12/18 02/28/19 History zolpidem 5 mg PO DAILY PRN 07/12/18 02/28/19 History letrozole 2.5 mg PO DAILY 30 Days #30 tab 01/02/19 02/28/19 Rx famotidine [Pepcid] 20 mg DAILY 02/28/19 02/28/19 History multivitamin with minerals 1 tab PO DAILY 02/28/19 02/28/19 History [Hair,Skin and Nails] cholecalciferol (vitamin D3) 2,000 unit PO DAILY 07/18/19 07/18/19 History Allergies Allergy/AdvReac Type Severity Reaction Status Date / Time latex Allergy Unknown ASTHMA Verified 01/30/19 11:21 REACTION; NAUSEA erythromycin base AdvReac Mild Nausea Verified 01/30/19 11:21 Exam Vital signs: Vital Signs Temp Pulse Resp BP Pulse Ox 07/18/19 09:43 98.0 F 63 16 127/79 95 Intake and Output 07/17/19 07/18/19 07/18/19 23:59 07:59 15:59 Other: Weight 91.9 kg Patient Weight 07/18/19 23:59 Weight 91.9 kg - Constitutional positive no acute distress - Routine Chest/Breast/Axilla Exam Comments: Breast exam deferred since she had recently 1 with Radiation Oncology in May 2019 without abnormality - Routine Respiratory Exam Present: Clear to auscultation bilaterally - Routine Cardiovascular Exam Present: RRR. Absent: murmur - Routine Extremities Exam Absent: edema, joint swelling Results - Labs Laboratory Last Values WBC 10.2 X10^3/uL (4.5-11.0) 11/29/18 15:10 RBC 4.01 X10^6/uL (4.0-5.2) 11/29/18 15:10 Hgb 12.4 g/dL (12.0-16.0) 11/29/18 15:10 Hct 36.8 % (36-46) 11/29/18 15:10 MCV 92.0 fL (80-100) 11/29/18 15:10 MCH 30.9 PG (26-34) 11/29/18 15:10 MCHC 33.6 % (30-36) 11/29/18 15:10 RDW 18.0 % (11.6-14.8) H 11/29/18 15:10 Plt Count 131 X10^3/uL (150-400) L 11/29/18 15:10 Neut % (Auto) Not Reportable 11/29/18 15:10 Lymph % (Auto) Not Reportable 11/29/18 15:10 [place] % (Auto) Not Reportable 11/29/18 15:10 Eos % (Auto) Not Reportable 11/29/18 15:10 Baso % (Auto) Not Reportable 11/29/18 15:10 Neut # (Auto) 4500 /uL (0626-6421) 11/22/18 09:35 Lymph # (Auto) Not Reportable 11/29/18 15:10 [place] # (Auto) Not Reportable 11/29/18 15:10 Eos # (Auto) 0 /uL (0-450) 11/22/18 09:35 Baso # (Auto) Not Reportable 11/29/18 15:10 Total Counted 100 11/29/18 15:10 Seg Neutrophils % 30.0 % (38-70) L 11/29/18 15:10 Band Neutrophils % 29.0 % (3-7) H 11/29/18 15:10 Lymphocytes % (Manual) 13.0 % (25-45) L 11/29/18 15:10 Atypical Lymphs % 4.0 % (-0) H 11/29/18 15:10 Monocytes % (Manual) 6.0 % (2-11) 11/29/18 15:10 Eosinophils % (Manual) 1.0 % (2-4) L 11/29/18 15:10 Basophils % (Manual) 1.0 % (0-1) 11/29/18 15:10 Metamyelocytes % 5.0 % (-0) H 11/29/18 15:10 Myelocytes % 8.0 % (-0) H 11/29/18 15:10 Promyelocytes % 3.0 % (-0) H 11/29/18 15:10 Neutrophils # (Manual) 6018 /uL (7653-7503) H 11/29/18 15:10 Nucleated RBCs 1 #/Diff (-0) H 11/29/18 15:10 Differential Comment Normal morphology 10/18/18 15:30 Toxic Granulation Present H 09/27/18 13:20 Dohle Bodies 1+ H 09/27/18 13:20 RBC Morphology Norm 11/29/18 15:10 Polychromasia 2+ H 11/08/18 14:15 Anisocytosis 1+ H 11/08/18 14:15 Sodium 134 mmol/L (137-145) L 11/29/18 15:10 Potassium 4.1 mmol/L (3.4-5.1) 11/29/18 15:10 Chloride 94 mmol/L (98-107) L 11/29/18 15:10 Carbon Dioxide 33 mmol/L (22-32) H 11/29/18 15:10 BUN 15 mg/dL (7-17) 11/29/18 15:10 Creatinine 0.70 mg/dL (0.52-1.04) 11/29/18 15:10 Estimated GFR > 60.0 mL/min (>60) 11/29/18 15:10 BUN/Creatinine Ratio 21.4 (6-22) 11/29/18 15:10 Glucose 110 mg/dL (80-110) 11/29/18 15:10 Calcium 9.0 mg/dL (8.4-10.2) 11/29/18 15:10 Magnesium 1.8 mg/dL (1.6-2.3) 11/29/18 15:10 Total Bilirubin 0.5 mg/dL (0.2-1.3) 11/29/18 15:10 AST 24 IU/L (14-36) 11/29/18 15:10 ALT 27 IU/L (9-52) 11/29/18 15:10 Alkaline Phosphatase 73 U/L (38-126) 11/29/18 15:10 Total Protein 5.8 g/dL (6.3-8.2) L 11/29/18 15:10 Albumin 3.6 g/dL (3.5-5.0) 11/29/18 15:10 Globulin 2.2 g/dL (1.7-4.1) 11/29/18 15:10 Albumin/Globulin Ratio 1.6 (1.0-2.8) 11/29/18 15:10 Triglycerides 90 mg/dL (35-150) 10/11/18 09:14 Cholesterol 186 mg/dL (140-199) 10/11/18 09:14 LDL Cholesterol, Calc 103 mg/dL (<100) H 10/11/18 09:14 HDL Cholesterol 65 mg/dL (40-60) H 10/11/18 09:14 Carcinoembryonic Ag 0.5 ng/mL (0.1-3.0) 10/11/18 09:14 TSH 1.40 uIU/mL (0.47-4.68) 10/11/18 09:14 - Imaging Additional studies: Procedures Closed [endoscopic] biopsy of large intestine (03/06/13) Endoscopic polypectomy of large intestine (06/04/14) Injection or infusion of other therapeutic or prophylactic substance (03/06/13) Ligation of hemorrhoids (06/04/14) Assessment and Plan (1) Rectal cancer Current visit: Yes Status: Acute She is 6 years out from her rectal cancer. No surveillance imaging required. She will require a colonoscopy in late 2019 (2) Breast mass, left Current visit: Yes Status: Acute 68-year-old woman with left breast cancer. She has undergone resection of a T2 N0i+ tumor. The recurrence score was high risk at 32 by Oncotype. She has completed her adjuvant chemotherapy and her radiation. She did have a DEXA scan that showed osteopenia. She will try some calcium and vitamin-D supplements. She will be due for another DEXA in about 2 years. She has stopped taking letrozole since May 2019 after being on it since January 2019. Main recent has been emotional side effects in the setting of bipolar disorder. Also significant arthralgias. I reviewed the importance of adjuvant hormonal therapy with her. I offered alternative to switching to tamoxifen. Patient preferred to give letrozole and other try for the next couple of months and speak with her psychiatrist to consider adding an antidepressant. However if this does not work out she should be switched to tamoxifen for better tolerance Follow-up in 2 months for reassessment. Mammogram in the next couple of months
--- NOTE | 2019-07-24 11:36 | ONC.SCHED ---
Spoke with Peggy regarding follow up. She indicated she is seeing Dr. Farr in [facility] the last week of July,. She will call us if she needs to come back to us.
[2019-07-31 17:42] LABS: Add Manual Diff / Slide Review NO; Basophils Absolute Auto 0 /uL (0-100); Basophils Percent Auto 0.5 % (0-2); Eosinophils Absolute Auto 100 /uL (0-450); Eosinophils Percent Auto 2.6 % (2-4); Hematocrit 43.1 % (36-46); Hemoglobin 14.2 g/dL (12.0-16.0); Lymphocytes Absolute Auto 700 /uL (1100-4500); Lymphocytes Percent Auto 17.8 % (25-40); Mean Corpuscular HGB Conc 32.9 % (30-36); Mean Corpuscular Hemoglobin 30.4 PG (26-34); Mean Corpuscular Volume 92.4 fL (80-100); Monocytes Absolute Auto 400 /uL (0-900); Monocytes Percent Auto 12.1 % (3-14); Neutrophils Absolute Auto 2500 /uL (1500-7000); Platelet Count 210 X10^3/uL (150-400); Red Blood Cell Count 4.66 X10^6/uL (4.0-5.2); Red Cell Distribution Width 13.7 % (11.6-14.8); White Blood Cell Count 3.7 X10^3/uL (4.5-11.0)
[2019-07-31 17:57] LABS: Alanine Aminotransferase 21 IU/L (<35); Albumin 4.4 g/dL (3.5-5.0); Albumin Globulin Ratio 1.5 (1.0-2.8); Alkaline Phosphatase 73 U/L (38-126); Aspartate Aminotransferase 32 IU/L (14-36); BUN Creatinine Ratio 18.9 (6-22); Bilirubin Total 0.4 mg/dL (0.2-1.3); Blood Urea Nitrogen 17 mg/dL (7-17); Calcium 9.8 mg/dL (8.4-10.2); Carbon Dioxide 34 mmol/L (22-32); Chloride 101 mmol/L (98-107); Estimated Glomerular Filt Rate > 60.0 mL/min (>60); Glucose 108 mg/dL (80-110); HEMOLYSIS < 15 (0-50); Potassium 4.5 mmol/L (3.4-5.1); Sodium 142 mmol/L (137-145); Total Protein 7.4 g/dL (6.3-8.2)
== END ==
PROVIDERS: Internal Medicine Hematology & Oncology; Family Provider Family Medicine; PCP Family Medicine
DX: C50.812 Malignant neoplasm of overlapping sites of left female breast (principal); Z17.0 Estrogen receptor positive status [ER+]
CPT/HCPCS: 36415; 36591; 36592; 80053; 80061; 82378; 83735; 84443; 85025; 96360; 96361; 96372; 96375; 96413; 96417; 99214; 99215; J1100; J2405; J7050; J9070; J9171; Q5108

== ENCOUNTER → 2020-01-07 09:55 | Outpatient (CLI) | payer MEDICARE, BC, SELFPAY ==
[2020-01-07 10:19] LABS: Bacteria Urine None Seen; RBC Urine None Seen (0-5/HPF); WBC Urine None Seen (0-5/HPF)
[2020-01-07 10:37] LABS: Add Manual Diff / Slide Review NO; Basophils Absolute Auto 0 /uL (0-100); Basophils Percent Auto 0.5 % (0-2); Eosinophils Absolute Auto 100 /uL (0-450); Eosinophils Percent Auto 2.7 % (2-4); Hematocrit 42.5 % (36-46); Hemoglobin 14.1 g/dL (12.0-16.0); Lymphocytes Absolute Auto 700 /uL (1100-4500); Lymphocytes Percent Auto 20.8 % (25-40); Mean Corpuscular HGB Conc 33.2 % (30-36); Mean Corpuscular Hemoglobin 31.4 PG (26-34); Mean Corpuscular Volume 94.7 fL (80-100); Monocytes Absolute Auto 500 /uL (0-900); Monocytes Percent Auto 13.4 % (3-14); Neutrophils Absolute Auto 2200 /uL (1500-7000); Neutrophils Percent Auto 62.6 % (50-75); Platelet Count 188 X10^3/uL (150-400); Red Blood Cell Count 4.49 X10^6/uL (4.0-5.2); Red Cell Distribution Width 14.1 % (11.6-14.8); White Blood Cell Count 3.6 X10^3/uL (4.5-11.0)
[2020-01-07 10:54] LABS: Alanine Aminotransferase 18 IU/L (<35); Albumin Globulin Ratio 1.6 (1.0-2.8); Alkaline Phosphatase 47 U/L (38-126); Amylase 111 U/L (30-110); Appearance Urine UA CLEAR; Aspartate Aminotransferase 26 IU/L (14-36); BUN Creatinine Ratio 22.8 (6-22); Bilirubin Total 0.5 mg/dL (0.2-1.3); Bilirubin Urine UA NEGATIVE (NEGATIVE); Blood Urea Nitrogen 18 mg/dL (7-17); Calcium 9.5 mg/dL (8.4-10.2); Carbon Dioxide 33 mmol/L (22-32); Chloride 104 mmol/L (98-107); Color Urine UA YELLOW; Estimated Glomerular Filt Rate > 60.0 mL/min (>60); Globulin 2.5 g/dL (1.7-4.1); Glucose 112 mg/dL (80-110); Glucose Urine UA NEGATIVE (Negative); HEMOLYSIS < 15 (0-50); Ketones Urine UA NEGATIVE (NEGATIVE); Leukocyte Esterase Urine UA NEGATIVE (NEGATIVE); Lipase 72 U/L (23-300); Nitrite Urine UA NEGATIVE (Negative); Occult Blood Urine UA NEGATIVE (Negative); Potassium 4.8 mmol/L (3.4-5.1); Protein Urine UA NEGATIVE (Negative); Sodium 139 mmol/L (137-145); Total Protein 6.5 g/dL (6.3-8.2); Urobilinogen Urine UA 0.2 E.U./dL (0.2)
[2020-01-07 10:59] LABS: Culture Indicated Urine Cult Not Indicated; Urine Comments Microscopic Normal
[2020-01-07 11:31] LABS: TSH w/ Reflex to FT4 5.77 uIU/mL (0.47-4.68)
--- NOTE | 2020-01-07 11:32 | DI.CT.S_ITS ---
PROCEDURE: CT ABDOMEN PELVIS W CON INDICATIONS: Left upper quadrant pain, reported prior history of breast carcinoma, colon carcinoma resection, and hysterectomy. Worsening left-sided abdominal pain. TECHNIQUE: After the administration of oral and intravenous contrast, 5 mm thick sections acquired from the diaphragms to the symphysis. 5 mm thick coronal and sagittal reformats were performed. For radiation dose reduction, the following was used: automated exposure control, adjustment of mA and/or kV according to patient size. COMPARISON: [facility], CT, ABDOMEN/PELVIS WITH CONTRAST, 11/05/2015, 10:43. [facility], CT, ABDOMEN/PELVIS WITH CONTRAST, 12/11/2013, 11:21. FINDINGS: Image quality: Excellent. ABDOMEN: Lung bases: Lung bases are clear. Heart size is normal. Left-sided breast carcinoma surgery changes. No mass in this area is found. Solid organs: Liver is normal in size and enhancement. Gallbladder appears normal sign report . Biliary system is non-dilated. Pancreas enhances normally. Spleen is normal in size and enhancement. No adrenal nodules. Kidneys are normal in size and enhancement, without hydronephrosis. Peritoneum and bowel: Stomach, small bowel, and colon loops are normal in caliber and wall thickness. No free fluid or air. Nodes and vessels: No retroperitoneal or mesenteric adenopathy. Aorta and inferior vena cava are normal in caliber. Miscellaneous: No ventral hernias. PELVIS: Genitourinary: Bladder wall thickness is normal. Apparent prior hysterectomy. Miscellaneous: No inguinal hernias or adenopathy. Surgical clips right lower quadrant, suspect prior appendectomy. Postsurgical changes at the rectum, consistent with partial colectomy. No mass lesion in this area is seen. No adjacent adenopathy is found. Bones: No suspicious bony lesions. No vertebral body compression fractures. IMPRESSION: 1. Right breast carcinoma post surgical change. 2. Probable prior appendectomy. Surgical clips right lower quadrant. 3. Apparent surgical staple line involving the rectum. No mass lesion in this area appears present. No adjacent adenopathy is found. A source of worsening left-sided abdominal/pelvic pain is not found. Dictated by: Matty Rosen M.D. on 01/07/2020 at 13:14 Approved by: Matty Rosen M.D. on 01/07/2020 at 13:19
[2020-01-07 11:56] LABS: Free T4, Direct Thyroxine 1.03 ng/dL (0.78-2.19)
== END ==
PROVIDERS: PCP Internal Medicine; Referring Provider Internal Medicine; Visit Provider Internal Medicine
DX: R10.12 Left upper quadrant pain (principal); Z85.3 Personal history of malignant neoplasm of breast; Z85.038 Personal history of other malignant neoplasm of large intestine; Z90.710 Acquired absence of both cervix and uterus
CPT/HCPCS: 36415; 74177; 80053; 81001; 82150; 82565; 83690; 84439; 84443; 84520; 85025; Q9967

== ENCOUNTER → 2020-01-23 13:30 | Outpatient (CLI) | payer MEDICARE, BC, SELFPAY ==
--- NOTE | 2020-01-23 | DI.RAD.S_ITS ---
PROCEDURE: XR CHEST 2V INDICATIONS: PALPITATIONS TECHNIQUE: 2 views of the chest were acquired. COMPARISON: [facility], CT, CT ABDOMEN PELVIS W CON, 01/07/2020, 11:25. FINDINGS: Surgical changes and devices: None. Lungs and pleura: Lungs are clear. No pleural effusions or pneumothorax. Asymmetric elevation of the right hemidiaphragm with overlying atelectasis is unchanged. Mediastinum: Mediastinal contours are normal. Heart size is normal. Bones and chest wall: No suspicious bony abnormalities. IMPRESSION: No acute cardiopulmonary process demonstrated radiographically. Dictated by: Bebeto Fernandez M.D. on 01/23/2020 at 14:54 Approved by: Bebeto Fernandez M.D. on 01/23/2020 at 14:55
== END ==
PROVIDERS: PCP Student in an Organized Health Care Education/Training Program; Referring Provider Student in an Organized Health Care Education/Training Program; Visit Provider Student in an Organized Health Care Education/Training Program
DX: R00.2 Palpitations (principal)
CPT/HCPCS: 71046

== ENCOUNTER → 2020-02-02 15:27 | Outpatient (CLI) | payer MEDICARE, BC, SELFPAY ==
[2020-02-03 20:49] LABS: COVID19 Sendout Not Detected (Not Detect)
== END ==
PROVIDERS: PCP Student in an Organized Health Care Education/Training Program; Visit Provider Physician Assistant
DX: Z11.59 Encounter for screening for other viral diseases (principal)
CPT/HCPCS: 87635

== ENCOUNTER → 2020-02-05 07:39 | Outpatient (CLI) | payer MEDICARE, BC, SELFPAY ==
--- NOTE | 2020-02-05 17:30 | DI.NM.S_ITS ---
DATE OF SERVICE: 02/05/2020 PROCEDURE: Pharmacological perfusion study. INDICATION: Palpitations with underlying hypertension and hyperlipidemia. RADIOPHARMACEUTICAL: 25.4 millicurie technetium-99m Myoview IV was injected at stress and 14.5 millicurie technetium-99m Myoview IV was injected at rest. CARDIAC STRESS: The patient underwent pharmacological perfusion study under the supervision of an attending staff using standard intravenous Lexiscan protocol. She remained hemodynamically stable. She felt minimal dyspnea. No chest pain. Baseline rhythm was sinus with atrial bigeminy, which persisted during the stress. There were no convincing new inducible ischemic changes. No obvious atrial fibrillation or sustained ventricular tachycardia are seen. Occasional PVCs were seen. RAW DATA: Significant breast shadow was seen. The patient's weight is 200 pounds. GATED STUDY: Resting LV ejection fraction is 70 percent and stress LV ejection fraction 77 percent without any obvious wall motion abnormalities. Resting end- diastolic volume 69 mL. TID ratio 0.89, which is within normal limits. Lung/heart ratio 0.37, which is within normal limits. MYOCARDIAL PERFUSION: Stress supine, resting supine and stress prone images were compared to each other. The stress supine and resting supine images revealed a small size, mildly decreased perfusion of anterior apex, which got improved during prone. However, on prone images, there were new perfusion defects involving mid anterior wall and distal anterior septum. This suggests shifting breast tissue attenuation artifact. The stress LV ejection fraction is better than resting LV ejection fraction. No obvious wall motion abnormalities. CONCLUSION: I will call this study likely a normal myocardial perfusion with evidence of breast tissue attenuation artifact, as well as shifting breast tissue attenuation artifact, as stated below. During raw images, significant breast shadow was seen. Left ventricular function is preserved. No obvious wall motion abnormalities. Baseline rhythm is sinus with atrial bigeminy. Correlate clinically. Peggy Muir - VICENTE/cara/dalton doc#: [id number]/job#: [id number] dd: 02/05/2020 16:39:00 dt: 02/05/2020 17:18:00 DICTATING MD/COPIES TO: Linda Leyva MD COPIES MNE: JUSTNE;
== END ==
PROVIDERS: PCP Student in an Organized Health Care Education/Training Program; Referring Provider Student in an Organized Health Care Education/Training Program; Visit Provider Student in an Organized Health Care Education/Training Program
DX: R00.2 Palpitations (principal); I10 Essential (primary) hypertension; E78.5 Hyperlipidemia, unspecified
CPT/HCPCS: 78452; 93017; A9502; J2785

== ENCOUNTER 2020-04-11 12:51 | Day surgery (SDC) | payer MEDICARE, BC, SELFPAY ==
--- NOTE | 2020-04-11 | PATH_ITS ---
[facility] Accession Number: [id number] . 01 Material submitted: . PART A: colon - 6 MM CECAL POLYP PART B: colon - HEPATIC FLEXURE 2 MM . 01 Clinical history: . SDC . 02 Diagnosis: A. Cecum, Polyp 6 mm, Biopsy: Tubular adenoma. . B. Hepatic Flexure 2 mm, Biopsy: Sessile serrated adenoma. MRV 04/15/2020 1352 Local . 02 Electronically signed: . Yolanda Vega MD, Pathologist NPI- [id number] . 01 Gross description: . A. The specimen is received in formalin, labeled 6 mm cecal polyp, and consists of a 0.5 x 0.4 x 0.3 cm skinner-pink fragment of soft tissue which is entirely submitted in cassette A1. B. The specimen is received in formalin, labeled hepatic flexure 2 mm, and consists of a 0.5 x 0.4 x 0.3 cm skinner-pink fragment of soft tissue which is entirely submitted in cassette B1. ([id number]) /FRR 04/12/2020 1751 Local . 02 Pathologist provided ICD-10: D12.0, D12.3 . 02 CPT . 930807, 717956 Performed at: 01 [facility] [address], [place], [place] [id number] MD Stanislaw Ovalles MD Phone: [phone] Performed at: 02 [facility] [address] [place], [place] [id number] MD Yolanda Vega MD Phone: [phone]
--- NOTE | 2020-04-11 12:36 | P.HP_ITS ---
History of Present Illness History of Present Illness Date Patient Seen: 04/11/20 Chief complaint: [facility] Narrative: 70 Years Old Female seen today for consideration of a screening colonoscopy. She does have a history of stage III rectal adenocarcinoma and is due for colonoscopy. Last colonoscopy in 2016 was normal. Prior to that, lifetime colonoscopies include: 06/24/2015: No evidence of cancer recurrence, mucosal irregularity in the cecum, pathology not available at time dictation. Otherwise, no polyps. Diverticulosis in the descending colon. 06/04/2014: Cecal polyp x 1, tubular adenoma 03/06/2013: 2 small hyperplastic polyps at 35 and 20 cm and a villous adenoma with inflammation and focal findings suspicious for high-grade dysplasia at 15 cm, later confirmed to be rectal adenocarcinoma. She has left lower quadrant having abdominal pain x1 month. Pain is worse in the morning when she gets up to go to the bathroom, dissipates throughout the day. Ibuprofen does help. Denies any bowel or bladder changes. She does have external hemorrhoids that bleed with constipation. She does try to control this with her diet. Reports recent CT scan in the last 4 months but prior to her current symptoms. CBC in 09/20/2018 was normal, denies any known anemia. She does have a history of rectal adenocarcinoma as noted above. There's been no family history of colon cancer or colon polyps. Overall health issues have been stable, including no major cardiac events for at least 6 weeks. Current Medications: 1) Calcium .... 1 daily 2) Vitamin D .... 1 daily 3) Tamoxifen Citrate 20 Mg Oral Tablet (Tamoxifen Citrate) .... 1 by mouth every morning 4) Quetiapine Fumarate 25 Mg Oral Tablet (Quetiapine Fumarate) .... 1/2 - 1 tab at bedtime 5) Pepcid 20 Mg Oral Tablet (Famotidine) .... 1 by mouth every morning 6) Alprazolam 0.5 Mg Oral Tablet (Alprazolam) .... 1 by mouth three times a day as needed for anxiety 7) Amlodipine Besylate 5 Mg Oral Tablet (Amlodipine Besylate) .... take one tablet daily for control of blood pressure 8) Atenolol 25 Mg Oral Tablet (Atenolol) .... Take 1 tablet twice a day for blood pressure control. 9) Proair Hfa 108 (90 Base) Mcg/act Inhalation Aerosol Solution (Albuterol Sulfate) .... 1-2 puffs q 4-6 hrs for wheezing 10) Lovastatin 20 Mg Oral Tablet (Lovastatin) .... Take one by mouth every day 11) Levothyroxine Sodium 150 Mcg Oral Tablet (Levothyroxine Sodium) .... 150 mcg by mouth qam 12) Gabapentin 100 Mg Oral Capsule (Gabapentin) .... Take 3 in the morning, 5 at bedtime 13) Lamictal 200 Mg Oral Tablet (Lamotrigine) .... Take one by mouth every day Allergies: 1) * Latex (Critical) 2) Erythromycin (Moderate) Past Medical History: Abdominal pain, left lower quadrant DERMATITIS, ATOPIC HYPERTENSION, BENIGN ESSENTIAL HYPERLIPIDEMIA ADENOCARCINOMA, RECTUM, STAGE III HYPOTHYROIDISM MIGRAINE DEPRESSION/ANXIETY BIPOLAR AFFECTIVE DISORDER ASTHMA HYSTERECTOMY Breast cancer Past Surgical History: Thyroid lobectomy Hysterectomy (1998) Partial knee replacement (2001) Ankle joint effusion (2006) Right lung lower lobectomy (1987) Breast lumpectomy - left (2018) Colonoscopy x 5 Family History: Reviewed history from 01/16/2020 and no changes required: Father: Congestive heart failure, HTN, high cholesterol, Prostate cancer- age 66 Mother: Stroke, Heart disease, HTN, Osteoporosis, High cholesterol - age 75 Siblings: Alcohol, Asthma, Depression Social History: Reviewed history from 01/16/2020 and no changes required: Marital Status: Children: 2 Occupation: Artist - brush painter Household Members: spouse Jeffery - retired Education: 12 + 1 Patient History Medical History (System 04/11/20 @ 13:14 by Erlinda Aguiar) Anxiety (Chronic) Arthritis (Chronic) Asthma (Chronic) Bipolar 1 disorder (Acute) Breast cancer, left (Acute) HTN (hypertension) (Chronic) Hypothyroidism (Chronic) Mood disorder (Chronic) Port-A-Cath in place (Acute 09/13/18) Surgical History (System 04/11/20 @ 13:14 by Erlinda Aguiar) History of colon resection (Resolved 03/21/13) History of lobectomy of lung (Resolved) History of lumpectomy of left breast (Acute ~08/2018) History of partial knee replacement (Resolved) Hx of ankle fusion (Resolved) Hx of hysterectomy (Resolved) Family & Social History Family History (System 04/11/20 @ 13:14 by Erlinda Aguiar) Mother Hypertension Stroke Father Heart disease Cancer Hypertension Grandmother Stroke Cancer Meds Home Medications and Allergies Home Medications Medication Instructions Recorded Confirmed Type gabapentin 300 mg PO TID #0 07/01/16 04/11/20 History lamotrigine 200 mg PO DAILY 01/23/18 04/11/20 History levothyroxine 137 mcg PO DAILY 01/23/18 04/11/20 History lovastatin 20 mg PO DAILY 01/23/18 04/11/20 History alprazolam 0.5 mg PO BID PRN 07/12/18 04/11/20 History multivitamin with minerals 1 tab PO DAILY 02/28/19 04/11/20 History [Hair,Skin and Nails] cholecalciferol (vitamin D3) 2,000 unit PO DAILY 07/18/19 04/11/20 History amlodipine 5 mg PO DAILY 04/11/20 04/11/20 History atenolol 25 mg PO BID 04/11/20 04/11/20 History quetiapine 25 mg PO BEDTIME 04/11/20 04/11/20 History tamoxifen 20 mg PO DAILY 04/11/20 04/11/20 History Allergies Allergy/AdvReac Type Severity Reaction Status Date / Time latex Allergy Unknown ASTHMA Verified 04/11/20 13:14 REACTION; NAUSEA erythromycin base AdvReac Mild Nausea Verified 04/11/20 13:14 Review of Systems Review of Systems ROS: Yes All systems reviewed with the patient and are negative except as otherwise documented Exam Narrative Exam Narrative: GENERAL: Alert and oriented, appearing stated age and in no acute distress. HEENT: Head normocephalic/atraumatic. Pupils equal, round, and reactive to light and accomodation. Extraocular muscles intact. Tympanic membranes clear. Nasal mucosa moist, septum midline. Oral mucosa moist, no lesions. Neck soft and supple, no lymphadenopathy. LUNGS: Clear to ausculation bilaterally, no wheezes, rhonchi or rales. CV: Normal S1 and S2 with regular rate and rhythm, no audible murmurs, rubs or gallops. ABDOMEN: Soft, non-tender, non-distended, no organomegaly. Positive bowel sounds. EXTREMITIES: No clubbing, cyanosis, or edema. NEURO: Cranial nerves II through XII grossly intact, no focal deficits. PSYCH: Alert and oriented x 3. SKIN: No concerning lesions. Assessment & Plan Assessment & Plan narrative: 1. Abdominal pain, left lower quadrant 2. Adenocarcinoma, rectum, stage III 3. Screening for colon cancer Advised patient update her colonoscopy with her history of cecal polyp and rectal adenocarcinoma. We will collect CT results in the last 4 months, may need additional exam if colonoscopy is normal. Advised high-fiber diet to avoid constipation in the meantime. Patient demonstrated understanding and agreement. The nature and character of the procedure as well as anticipated results were discussed. The possibility of not completing the procedure was also discussed. Possible complications including aspiration pneumonia, bleeding, perforation and reaction to medications either for sedation or preparation and missed lesions were discussed. Questions were answered and proceeding to the colonoscopy was elected. Informed consent signed.
--- NOTE | 2020-04-11 12:45 | PM.OP.ENDO ---
Operative Date/Time/Diagnoses Date of procedure: 04/11/20 Procedure Notes SCOAP/Timeout: 2:00 p.m. Procedure in detail: ENDOSCOPIST: Lisa Fermin MD Sedation RN: Fabio Guerin RN Sedation start time: 2:01 p.m. Sedation end time: 2:26 p.m. PROCEDURE: Colonoscopy with cold biopsy INDICATIONS: 1. Abdominal pain, left lower quadrant 2. Adenocarcinoma, rectum, stage III 3. Colon cancer screening MEDICATION: Levsin 0.125 mg sublingual, incremental doses of Versed and fentanyl until appropriate level sedation achieved. ASA CLASS: 2 CECAL WITHDRAWAL TIME: 13 minutes COMPLICATIONS: None. EXTENT OF PROCEDURE: Cecum. QUALITY OF PREP: Good with portions of liquid stool. PROCEDURE: Prior to insertion of the colonoscope, a digital rectal examination was accomplished with circumferential palpation of the distal rectal mucosa without significant findings being noted. The high-definition colonoscope was passed into the rectum in the usual fashion and advanced over to the cecum without difficulty. The ileocecal valve, appendiceal stoma, and medial wall all could be inspected and a 6 mm polyp was seen and removed with cold biopsy forceps. ASCENDING COLON: As the colonoscope was withdrawn, care was taken to expose and inspect the haustral folds and minor diverticulosis seen upon withdrawal throughout the colon. HEPATIC FLEXURE: A 2 mm polyp was seen and removed with cold biopsy forceps. Otherwise, minor diverticulosis and no other abnormalities. TRANSVERSE COLON: Minor diverticulosis, otherwise, normal, no polyps, or other abnormalities. DESCENDING COLON: Minor diverticulosis, otherwise, normal, no polyps, or other abnormalities. SIGMOID COLON: Minor diverticulosis, otherwise, normal, no polyps, or other abnormalities. No sign of cancer recurrence of 15-20 cm. RECTUM: Normal. J maneuver was produced. There was no significant perianal disease. The J maneuver was broken. The remainder of the rectum was inspected and there was moderate external hemorrhoid disease. The scope was withdrawn. IMPRESSION: 1. Cecal polyp x1, 6 mm, removed with cold biopsy forceps 2. Hepatic flexure polyp x1, 2 mm, removed with cold biopsy forceps 3. No sign of cancer recurrence at 15-20 cm. 4. External hemorrhoids, nonthrombosed 5. Minor diverticulosis, pancolonic PLAN: 1. Follow-up in clinic status post pathology results. The possibility of a missed lesion including a malignancy has been discussed with the patient previously. Potential alarm symptoms have been discussed and should be reported immediately.
[2020-04-11 13:12] VITALS: BMI 34.3
[2020-04-11 13:19] VITALS: BP 122/79; PULSE 66; RESP 16; TEMP 36.3; O2SAT 99
[2020-04-11] MEDS: HYOSCYAMINE 0.125 MG TABLET PO (13:38)
[2020-04-11] MEDS: LACTATED RINGERS 1,000 ML 200 ML IV (13:39)
[2020-04-11] MEDS: fentaNYL 250 MCG/5 ML INJ IV (14:01)
[2020-04-11] MEDS: MIDAZOLAM 5 MG/5 ML VIAL IV (14:01)
[2020-04-11 14:31] VITALS: BP 115/49; PULSE 64; RESP 20; TEMP 35.7; O2SAT 100
[2020-04-11 14:36] VITALS: BP 131/80; PULSE 65; RESP 22; TEMP 36.4; O2SAT 100
[2020-04-11 14:41] VITALS: BP 132/73; PULSE 60; RESP 20; TEMP 36.3; O2SAT 99
[2020-04-11 14:47] VITALS: BP 138/73; PULSE 63; RESP 20; TEMP 35.7; O2SAT 100
[2020-04-11 15:00] VITALS: BP 130/64; PULSE 64; RESP 16; TEMP 36.6; O2SAT 100
--- NOTE | 2020-04-11 15:45 | SUR.PHASEII ---
Assumed care from Lily, Lily discussed d/c instructions, pt stated she had no questions when I asked, pt left when ready and left in stable condition. Belly soft with no nausea.
== END 2020-04-11 15:10 | disposition home or self-care (01) ==
PROVIDERS: PCP Student in an Organized Health Care Education/Training Program; Referring Provider Student in an Organized Health Care Education/Training Program; Visit Provider Student in an Organized Health Care Education/Training Program
PROC: 0DJD8ZZ Inspection of Lower Intestinal Tract, Via Natural or Artificial Opening Endoscopic (ICD-10-PCS; CPT 45378; principal; 2020-04-11 13:45)
DX: K57.30 Diverticulosis of large intestine without perforation or abscess without bleeding (principal); Z85.048 Personal history of other malignant neoplasm of rectum, rectosigmoid junction, and anus; K64.4 Residual hemorrhoidal skin tags; D12.0 Benign neoplasm of cecum; D12.3 Benign neoplasm of transverse colon
CPT/HCPCS: 45380; J2250; J3010

== ENCOUNTER → 2020-06-25 14:52 | Outpatient (CLI) | payer MEDICARE, BC, SELFPAY ==
--- NOTE | 2020-06-25 | DI.ECHO.S_ITS ---
[place]---------+ [facility] +---------+ : : [address] : : : : [id number] : : : : Phone: [phone]+ Echocardiogram Report + + :Name: LATONYA BATISTA Study Date: 06/25/2020 Height: 63.5 in: :[facility] Weight: 200 lb : : Gender: Female BSA: 1.9 m2 : :: 1950 Age: 70 yrs BP: 153/93 mmHg: :Reason For Study: PALPITATIONS, BRADYCARDIA : :Ordering Physician: LUKAS, : :LIZZETH Performed By: Claudia Chambers : :Referring: BEAR UGZMAN : + + Interpretation Summary The left ventricle is normal in size and wall thickness.Left ventricular ejection fraction is estimated to be 55 +/- 5%. The right ventricle is normal in size and function. There is mild to moderate mitral regurgitation. There is mild aortic regurgitation. The IVC is of normal diameter and collapses greater than 50% with a sniff. This suggests a low right atrial pressure of 3 mm Hg. Procedure: A two-dimensional transthoracic echocardiogram with color flow and Doppler was performed. The study quality was technically adequate. There is no prior echocardiogram noted for this patient. The patient was in sinus bradycardia with heart rates between 54-64 bpm during the exam. Left Ventricle: The left ventricle is normal in size and wall thickness. There is no thrombus. A false chord is noted (normal variant). Left ventricular ejection fraction is estimated to be 55 +/- 5%. Septal motion is consistent with conduction abnormality. Diastolic parameters suggest a relaxation abnormality of the left ventricle, consistent with probable normal filling pressures. Right Ventricle: The right ventricle is normal in size and function. Atria: The left atrium is mildly dilated. Right atrial size is normal. There is no Doppler evidence for an interatrial shunt. Mitral Valve: The mitral valve leaflets appear borderline thickened, but open well. There is mild mitral annular calcification. Redundant elongated chordae are noted. There is mild to moderate mitral regurgitation. Aortic Valve: The aortic valve is trileaflet. The aortic valve opens well. There is no aortic valve stenosis. There is mild aortic regurgitation. Tricuspid Valve: The tricuspid valve is normal in structure and function. There is trace tricuspid regurgitation. Pulmonary artery pressures cannot be estimated because of the lack of a measurable TR jet velocity but the IVC suggests a CVP of around 3 mmHg. Pulmonic Valve: The pulmonic valve is not well visualized. There is trace pulmonic regurgitation. Great Vessels: The aortic root is normal size. The ascending aorta is at the upper limits of normal in size. The IVC is of normal diameter and collapses greater than 50% with a sniff. This suggests a low right atrial pressure of 3 mm Hg. Pericardium/ Pleura There is no pericardial effusion. There is no pleural effusion. MMode/2D Measurements & Calculations LVIDd: 4.8 cm LVOT diam: 2.0 cm LVIDs: 3.5 cm Ao root diam: 2.9 cm FS: 27.7 % asc Aorta Diam: 3.4 cm EPSS: 1.2 cm Ao Arch Diam (Prox Trans): 2.7 cm IVSd: 0.68 cm LVPWd: 0.76 cm LV moses. diameter/BSA (cm/m^2): 2.5 LV sys. diameter/BSA (cm/m^2): 1.8 LA A2 area: 25.2 cm2 RA long axis: 4.7 cm LA A4 area: 14.7 cm2 RA area: 11.9 cm2 LA length (vol): 4.4 cm RA vol: 25.8 ml LA vol: 71.6 ml RA : 13.3 ml/m2 LA vol index: 36.8 ml/m2 IVC diam: 1.6 cm RVD1 (basal): 3.2 cm TAPSE: 2.1 cm Doppler Measurements & Calculations Ao V2 max: 154.7 cm/sec LVOT Max Jose: 106.7 cm/sec Ao V2 mean: 98.7 cm/sec LV V1 max P.6 mmHg Ao max P.6 mmHg LV V1 VTI: 25.9 cm Ao mean P.4 mmHg BRENNEN(I,D): 2.1 cm2 Ao V2 VTI: 36.4 cm BRENNEN(V,D): 2.1 cm2 sev ratio: 0.71 BRENNEN indexed to BSA (cm^2/m^2): 1.1 MV E max jose: 85.3 cm/sec PA V2 max: 85.5 cm/sec MV A max jose: 97.4 cm/sec PA V2 mean: 53.8 cm/sec MV E/A: 0.88 PA mean P.4 mmHg Med Peak E' Jose: 6.9 cm/sec PA pr(Accel): 3.6 mmHg E/E' med: 12.4 Lat Peak E' Jose: 10.4 cm/sec E/E' lat: 8.2 E/e' average: 10.3 MV dec time: 0.28 sec SV(OT): 77.8 ml Reading Physician:05:16 PM
== END ==
PROVIDERS: PCP Student in an Organized Health Care Education/Training Program; Referring Provider Internal Medicine Cardiovascular Disease; Visit Provider Internal Medicine Cardiovascular Disease
DX: I08.0 Rheumatic disorders of both mitral and aortic valves (principal); I49.1 Atrial premature depolarization; R00.2 Palpitations
CPT/HCPCS: 93306

== ENCOUNTER → 2020-11-20 15:31 | Outpatient (CLI) | payer MEDICARE, BC, SELFPAY ==
--- NOTE | 2020-11-20 | DI.MG.S_ITS ---
BILATERAL DIGITAL SCREENING MAMMOGRAM 3D/2D WITH CAD: 11/20/2020 CLINICAL: Routine screening. Personal history of left breast cancer. Family history of breast cancer. Comparison is made to exams dated: 07/31/2019 mammogram, 07/03/2018 mammogram, and 09/12/2014 mammogram - [facility]. The tissue of both breasts is predominantly fatty. Current study was also evaluated with a Computer Aided Detection (CAD) system. There are benign vascular calcifications in the right breast. There also are benign post operative findings in the left breast. No significant masses, calcifications, or other findings are seen in either breast. There has been no significant interval change. IMPRESSION: BENIGN There is no mammographic evidence of malignancy. A 1 year screening mammogram is recommended. This exam was interpreted at Station ID: [id number]. NOTE: For mammograms, a report in lay terms will be sent to the patient. Approximately 15% of breast malignancies will not be visualized mammographically. In the management of a palpable breast mass, a negative mammogram must not discourage biopsy of a clinically suspicious lesion. Electronically Signed By: Brielle montes/laurence:11/20/2020 17:24:32 copy to: SALO NAYAK letter sent: Normal Exam ACR BI-RADS Category 2: Benign Finding(s) 3342F
== END ==
PROVIDERS: PCP Student in an Organized Health Care Education/Training Program; Referring Provider Student in an Organized Health Care Education/Training Program; Visit Provider Student in an Organized Health Care Education/Training Program
DX: Z12.31 Encounter for screening mammogram for malignant neoplasm of breast (principal); Z85.3 Personal history of malignant neoplasm of breast; Z80.3 Family history of malignant neoplasm of breast
CPT/HCPCS: 77063; 77067

== ENCOUNTER → 2022-01-14 10:02 | Outpatient (CLI) | payer MEDICARE, BC, SELFPAY ==
--- NOTE | 2022-01-14 | DI.MG.S_ITS ---
BILATERAL DIGITAL DIAGNOSTIC MAMMOGRAM 3D/2D: 01/14/2022 CLINICAL: Pain Left breast. Comparison is made to exams dated: 11/20/2020 mammogram, 07/31/2019 mammogram, 08/09/2018 mammogram, 08/01/2018 breast MRI, and 07/07/2018 mammogram - [facility]. The tissue of both breasts is predominantly fatty. There is a stable benign coarse vascular calcification in the right breast. There also are surgical clips in the left breast in the axilla. Additionally, there are stable benign surgical clips and post surgical scar in the left breast central to the nipple. Additionally, there also is a benign scar marker in the right breast in the posterior depth central to the nipple. No significant masses, calcifications, or other findings are seen in either breast. Specifically, no finding to explain the patient's diffuse superior left breast pain. IMPRESSION: BENIGN There is no abnormality seen in the left breast to correspond with the diffuse pain in the superior aspect. There is no mammographic evidence of malignancy. Mammograms are stable with benign findings. Return to annual mammogram screening schedule is recommended. Findings and recommendations were conveyed to the patient at time of exam. This exam was interpreted at Station ID: [id number]. NOTE: For mammograms, a report in lay terms will be sent to the patient. Approximately 15% of breast malignancies will not be visualized mammographically. In the management of a palpable breast mass, a negative mammogram must not discourage biopsy of a clinically suspicious lesion. Electronically Signed By: Brielle montes/:01/14/2022 10:41:17 copy to: SALO NAYAK letter sent: Normal Exam ACR BI-RADS Category 2: Benign Finding(s) 3342F
== END ==
PROVIDERS: PCP Internal Medicine; Referring Provider Internal Medicine; Visit Provider Internal Medicine
DX: N64.4 Mastodynia (principal)
CPT/HCPCS: 77066; G0279

== ENCOUNTER → 2022-07-16 10:33 | Outpatient (CLI) | payer MEDICARE, BC, SELFPAY | PROVIDERS: PCP Internal Medicine; Referring Provider Internal Medicine; Visit Provider Internal Medicine | DX: Z78.0 Asymptomatic menopausal state (principal); Z13.820 Encounter for screening for osteoporosis; M85.851 Other specified disorders of bone density and structure, right thigh; Z85.3 Personal history of malignant neoplasm of breast; Z85.038 Personal history of other malignant neoplasm of large intestine | CPT/HCPCS: 77080 ==

== ENCOUNTER → 2023-06-09 14:00 | Outpatient (CLI) | payer MEDICARE, BC, SELFPAY ==
--- NOTE | 2023-06-09 | DI.MG.S_ITS ---
BILATERAL DIGITAL SCREENING MAMMOGRAM 3D/2D WITH CAD: 06/09/2023 CLINICAL: Routine screening. Personal history of left breast cancer. Family history of breast ca. Comparison is made to exams dated: 01/14/2022 mammogram, 11/20/2020 mammogram, and 07/31/2019 mammogram - [facility]. There are scattered areas of fibroglandular density in both breasts (category b / 25%-50% glandular tissue). Current study was also evaluated with a Computer Aided Detection (CAD) system. There are grouped calcifications in the left breast at 3 o'clock posterior depth. These are increased in number and correlates with surgery. No other significant masses, calcifications, or other findings are seen in either breast. IMPRESSION: INCOMPLETE: NEEDS ADDITIONAL IMAGING EVALUATION The grouped calcifications in the left breast are indeterminate. Additional views are recommended. These are increased in number and correlates with surgery, possibly fat necrosis and dystrophic calcifications. This exam was interpreted at Station ID: [id number]. NOTE: For mammograms, a report in lay terms will be sent to the patient. Approximately 15% of breast malignancies will not be visualized mammographically. In the management of a palpable breast mass, a negative mammogram must not discourage biopsy of a clinically suspicious lesion. Electronically Signed By: Binh Pradhan M.D. lc/:06/09/2023 14:41:20 copy to: SALO NAYAK letter sent: Additional Imaging Needed ACR BI-RADS Category 0: Incomplete 3340F
== END ==
PROVIDERS: PCP Internal Medicine; Referring Provider Internal Medicine; Visit Provider Internal Medicine
DX: Z12.31 Encounter for screening mammogram for malignant neoplasm of breast (principal); Z85.3 Personal history of malignant neoplasm of breast; Z80.3 Family history of malignant neoplasm of breast
CPT/HCPCS: 77063; 77067

== ENCOUNTER → 2023-06-30 12:05 | Outpatient (CLI) | payer MEDICARE, BC, SELFPAY ==
--- NOTE | 2023-06-30 | DI.MG.S_ITS ---
UNILATERAL LEFT DIGITAL DIAGNOSTIC MAMMOGRAM 3D/2D WITH ADDITIONAL VIEWS: 06/30/2023 CLINICAL: Additional evaluation requested from prior study. Comparison is made to exams dated: 06/09/2023 mammogram, 01/14/2022 mammogram, 11/20/2020 mammogram, 07/31/2019 mammogram, and 07/03/2018 mammogram - [facility]. There are scattered areas of fibroglandular density in the left breast (category b / 25%-50% glandular tissue). There are grouped coarse dystrophic calcifications in the left breast at 3 o'clock posterior depth. These are increased in number and correlates with postsurgical changes. There are surgical clips associated with the calcifications. No other significant masses or calcifications are seen in the breast. IMPRESSION: BENIGN The grouped coarse dystrophic calcifications in the left breast are consistent with fat necrosis related to the previous surgery and are benign. There is no mammographic evidence of malignancy. Return to annual mammogram screening schedule is recommended. This exam was interpreted at Station ID: [id number]. NOTE: For mammograms, a report in lay terms will be sent to the patient. Approximately 15% of breast malignancies will not be visualized mammographically. In the management of a palpable breast mass, a negative mammogram must not discourage biopsy of a clinically suspicious lesion. Electronically Signed By: Alfonso Perdue M.D. ar/:06/30/2023 12:38:03 copy to: SALO NAYAK letter sent: Normal Exam ACR BI-RADS Category 2: Benign Finding(s) 3342F
== END ==
PROVIDERS: PCP Internal Medicine; Referring Provider Internal Medicine; Visit Provider Internal Medicine
DX: R92.1 Mammographic calcification found on diagnostic imaging of breast (principal); R92.322 Mammographic fibroglandular density, left breast; R92.8 Other abnormal and inconclusive findings on diagnostic imaging of breast
CPT/HCPCS: 77065; G0279

== ENCOUNTER 2023-08-05 13:35 | Day surgery (SDC) | payer MEDICARE, BC, SELFPAY ==
[2023-08-05] VITALS (7 sets, daily range): BP systolic 74–126; BP diastolic 46–80; PULSE 63–70; RESP 16–22; TEMP 36.1–36.6; O2SAT 97–99
--- NOTE | 2023-08-05 | PATH_ITS ---
[facility] Accession Number: [id number] No. of containers..01 Tissue . 01 Material submitted: . colon - TRANSVERSE POLYP . 01 Diagnosis: TRANSVERSE COLON POLYP, BIOPSY: Tubular adenoma. MRV 08/10/2023 1417 Local . 01 Electronically signed: . Iraida Castro MD, Pathologist NPI- [id number] . 01 Gross description: . TRANSVERSE POLYP: Received in formalin is 1 fragment(s) of skinner, soft tissue measuring 0.3 x 0.3 x 0.3 cm submitted entirely in 1 cassette(s) /MICHELLE 08/09/2023 1847 Local . 01 Pathologist provided ICD-10: D12.3 . 01 CPT . 937225 Specimen Comment: A courtesy copy of this report has been sent to [phone] Performed at: 01 [facility] [address] [place] [id number] MD Stanislaw Ovalles MD Phone: [phone]
[2023-08-05] MEDS: LACTATED RINGERS 1,000 ML 42 ML IV (14:51)
--- NOTE | 2023-08-05 16:57 | PM.PREOP ---
Pre-operative Note Interval Note History & Physical reviewed/Exam performed by Physician: Yes Changes to H&P: No
--- NOTE | 2023-08-05 17:44 | P.OP.COLON_ITS ---
Operative Date/Time/Diagnoses Date of procedure: 08/05/23 Time of procedure: 17:44 Pre-op diagnosis: Rectal bleeding, history of rectal cancer Post-op diagnosis: other (Internal hemorrhoids) Procedure & Clinicians Study performed: Diagnostic colonoscopy and hemorrhoidal banding Same procedure as scheduled: Yes Indications: 73-year-old woman remote history of rectal cancer with rectal bleeding here for diagnostic colonoscopy. Surgeon: Joe Childers Procedure Notes Procedure in detail: The history and physical was performed/updated and the patient is ASA class is 2. The procedure was discussed in detail with the patient. Potential risks complications including infection, bleeding, missed diagnosis, perforation, need for surgery, and were explained. Their questions were answered and informed consent was obtained. Patient was brought to the procedure room and placed standard monitoring equipment. The patient's vital signs were monitored continuously throughout the entire procedure. Prior to starting time-out was performed. The patient was placed in the left lateral recumbent position. Procedural sedation was administered by anesthesia. Examination began with a thorough inspection of the perianal area there was no evidence of fissures, fistulae, external hemorrhoids or cutaneous malignancy. The colonoscopy scope was then placed into the anal canal and was advanced to the cecum, which was identified by the ileocecal valve, the appendiceal orifice and the confluence of the taenia. The scope was then slowly withdrawn examining colon thoroughly in all directions, irrigating it of any residual stool. The scope was retroflexed within the rectum The patient tolerated the procedure well. They will be discharged once criteria are met. The prep was of good/excellent quality. The withdrawl time was 7 minutes. FINDINGS * Normal low anterior resection anastomosis. * Normal rectal stump * Grade 2-3 internal hemorrhoids * Transverse colon 3 mm polyp removed with biopsy forceps Following completion of the colonoscopy the anoscope was inserted. There were grade 2-3 internal hemorrhoids in the right posterior and left lateral positions. These columns were grasped with suction elevated and doubly ligated at their base. She tolerated the procedure well. Specimen(s): other (Transverse colon polyp) Post-procedure Plan for aftercare: Follow-up is dependent on pathology findings Sitz bath twice daily for the next 1 week stool softeners as needed to avoid constipation Disposition: same day surgery
[2023-08-05] MEDS: ACETAMINOPHEN 325 MG TABLET 975 MG PO (18:05)
== END 2023-08-05 18:16 | disposition home or self-care (01) ==
PROVIDERS: PCP Internal Medicine; Referring Provider Surgery; Visit Provider Surgery
PROC: 0DJD8ZZ Inspection of Lower Intestinal Tract, Via Natural or Artificial Opening Endoscopic (ICD-10-PCS; CPT 45378; principal; 2023-08-05 14:30)
DX: K62.5 Hemorrhage of anus and rectum (principal); Z85.048 Personal history of other malignant neoplasm of rectum, rectosigmoid junction, and anus; K64.2 Third degree hemorrhoids; D12.3 Benign neoplasm of transverse colon
CPT/HCPCS: 45380; J2704

== ENCOUNTER → 2024-08-03 11:16 | Outpatient (CLI) | payer MEDICARE, SELFPAY ==
--- NOTE | 2024-08-03 | DI.MG.S_ITS ---
BILATERAL DIGITAL SCREENING MAMMOGRAM 3D/2D WITH CAD: 08/03/2024 CLINICAL: Routine screening. Personal history of left breast cancer. Family history. Comparison is made to exams dated: 06/09/2023 mammogram, 01/14/2022 mammogram, and 11/20/2020 mammogram - [facility]. There are scattered areas of fibroglandular density (category b / 25%-50% glandular tissue). Current study was also evaluated with a Computer Aided Detection (CAD) system. There are benign calcifications in both breasts. There also are benign post operative findings in the left breast. No significant masses, calcifications, or other findings are seen in either breast. There has been no significant interval change. IMPRESSION: BENIGN There is no mammographic evidence of malignancy. A 1 year screening mammogram is recommended. This exam was interpreted at Station ID: [id number]. NOTE: For mammograms, a report in lay terms will be sent to the patient. Approximately 15% of breast malignancies will not be visualized mammographically. In the management of a palpable breast mass, a negative mammogram must not discourage biopsy of a clinically suspicious lesion. Electronically Signed By: Tony voss/[email or web address]:08/04/2024 14:46:59 copy to: SALO NAYAK letter sent: Normal Exam ACR BI-RADS Category 2: Benign
== END ==
LOC: MAMMO 11:16
PROVIDERS: PCP Family Medicine; Referring Provider Family Medicine; Visit Provider Family Medicine
DX: Z12.31 Encounter for screening mammogram for malignant neoplasm of breast (principal); Z85.3 Personal history of malignant neoplasm of breast; Z80.3 Family history of malignant neoplasm of breast
CPT/HCPCS: 77063; 77067